=== PATIENT | male | born 1940 | race Caucasian/White ===

== ENCOUNTER → 2018-02-23 11:06 | Outpatient (CLI) | payer MEDICARE, OTHER, SELFPAY ==
[2018-02-23 11:29] LABS: INR 2.33 (0.9-1.1); Prothrombin Time 23.4 seconds (9.4-11.8)
[2018-02-23 12:31] LABS: Anion Gap 18.6 mEq/L (5-15); Blood Urea Nitrogen 12 mg/dL (7-18); Calcium 8.7 mg/dL (8.5-10.1); Carbon Dioxide 23 mmol/L (21.0-32.0); Chloride 105 mmol/L (98-107); Creatinine,Serum 1.05 mg/dL (0.70-1.30); Digoxin 0.56 ng/mL (1.15-2.56); Estimated Glomerular Filt Rate 69 ml/min (>60); GFR (African American) 83 ML/MIN (>60); Glucose 124 mg/dL (74-106); Sodium 142 mmol/L (136-145)
[2018-02-23 12:38] LABS: Potassium 4.6 mmoL/L (3.5-5.1)
== END ==
PROVIDERS: Visit Provider Internal Medicine Cardiovascular Disease
DX: E78.5 Hyperlipidemia, unspecified (principal); I25.810 Atherosclerosis of coronary artery bypass graft(s) without angina pectoris; I48.2 Chronic atrial fibrillation; R06.09 Other forms of dyspnea; Z87.891 Personal history of nicotine dependence; Z95.1 Presence of aortocoronary bypass graft
CPT/HCPCS: 36415; 80048; 80162; 85610

== ENCOUNTER → 2018-03-01 10:13 | Outpatient (CLI) | payer MEDICARE, OTHER, SELFPAY ==
--- NOTE | 2018-03-01 10:14 | NM_ITS ---
History and Indications: Coronary artery disease, previous bypass surgery, hypertension, hyperlipidemia. Procedure: Patient received a 0.4 mg of intravenous Lexiscan, resting heart rate was 70 bpm, resting blood pressure 163/82, with Lexiscan maximum heart rate achieved was 83 bpm which is less than 85% of the maximum predicted heart rate and a blood pressure was 140/84. With Lexiscan patient complained of shortness of breath. Electrocardiogram: Resting electrocardiogram show underlying rhythm is probably atrial fibrillation, frequent premature ventricular complexes versus aberrantly conducted beats. With Lexiscan there is less than 1.[address] segment depression noted from the baseline EKG. The EKG portion of the Lexiscan Myoview is nondiagnostic. Cardiac stress and resting SPECT images: Cardiac stress and resting SPECT images were obtained using technetium 99 Myoview 30.1 mCi at stress and 10.5 mCi at rest. Gated SPECT further analysis of segmental wall motion and calculation of the ejection fraction also done. Cardiac stress and rest images show decreased tracer activity in the posterolateral wall which improves on the resting images suggestive of reversible ischemia, computer derived Left ventricular ejection fraction is 49% with no regional wall motion abnormality, right ventricle is normal size and contractility. Conclusion: 1. The EKG portion of the Lexiscan Myoview is nondiagnostic. 2. Scintigraphic evidence of mild reversible ischemia involving the posterolateral wall, computer derived ejection fraction is 49% with no segmental wall motion abnormality, right ventricle is normal size and contractility. 3. Abnormal Lexiscan Myoview study.
--- NOTE | 2018-03-01 13:27 | CA_ITS ---
PROCEDURE: 2-D M-mode and color Doppler study INDICATIONS FOR THE TEST: Chest pain COPD Heart Murmur Tobacco SmokingEX Palpitations Fatigue Syncope Edema Hypertension+Diabetes Mellitus Rheumatic Fever SOB GONZALEZ+Obesity Hyperlipidemia+ Family History HD Additional History AFIB, CABG 2008 PATIENT INFORMATION HEIGHT: 74 WEIGHT: 273 GENDER: Male B/P: 164/86 2-D/M-MODE INTERPRETATION: 2-D MEASUREMENTS OBSERVED VALUES IN CMS Right Ventricular Dimension (RVDd) 2.2 Interventricular Septum (Thickness)(IVsd) 1.2 Left Ventricular Internal Dimensions(LVIDd) 2.9 Left Ventricular Posterior Wall (Thickness)(LVPWd) 1.2 Aortic Root 3.5 Aortic Cusp Separation 2.1 Left Atrial Dimensions (LAD) 6.7 2D 1. Left atrium is moderately enlarged, left ventricle is normal size, mild concentric left ventricular hypertrophy, visually estimated ejection fraction 55% with no regional wall motion abnormality. 2. The right atrium is moderately enlarged, right ventricle is normal size and contractility. 3. The aortic valve is minimally thickened and fibrosed. 4. Mitral valve has mitral calcification, there is no mitral stenosis 5. The pulmonic valve is poorly visualized. 6. The tricuspid valve is grossly normal. 7. No significant pericardial effusion noted. DOPPLER INTERROGATION: Doppler interrogation of the aortic, mitral and tricuspid valvular presence of mild mitral and tricuspid regurgitation, tricuspid regurgitation jet velocity is inadequate for calculation of the right ventricular systolic pressure, diastolic parameters are inconclusive. CONCLUSION: 1. Biatrial enlargement, normal left ventricular size, mild concentric left ventricular hypertrophy, visually estimated ejection fraction 55% with no regional wall motion abnormality. Diastolic parameters are inconclusive. 2. Mild mitral and tricuspid regurgitation 3. No significant pericardial effusion noted.
--- NOTE | 2018-03-01 13:27 | CI_ITS ---
Cerebrovascular Exam Indications: 785.9 Bruit. IMPRESSIONS 1. The bilateral vertebral arteries are patent with normal antegrade flow. 2. Study suggests 20-49% stenosis involving the right internal carotid artery and the left internal carotid artery. Carotid duplex study. Complete study and Doppler flow study including spectral analysis, color and rowley scale imaging. Height: Height: 193cm. Height: 76in. Weight: Weight: 123.8kg. Weight: 272.4lb. Body mass index: BMI: 33.2kg/m^2. Body surface area: BSA: 2.61m^2. Location: Vascular laboratory. Patient status: Outpatient. Tables: Arterial flow: + +--------+--------+ Location V sys V ed + +--------+--------+ Right CCA - proximal 98.2cm/s 22cm/s + +--------+--------+ Right CCA - distal 102cm/s 18.2cm/s + +--------+--------+ Right ECA 302cm/s -------- + +--------+--------+ Right ICA - proximal 79.4cm/s 18.5cm/s + +--------+--------+ Right ICA - mid 94.3cm/s 20.5cm/s + +--------+--------+ Right ICA - distal 104cm/s 40.3cm/s + +--------+--------+ Right vertebral 51.5cm/s -------- + +--------+--------+ Left CCA - proximal 95.3cm/s 18.2cm/s + +--------+--------+ Left CCA - distal 83cm/s 19.2cm/s + +--------+--------+ Left ECA 155cm/s -------- + +--------+--------+ Left ICA - proximal 112cm/s 28.3cm/s + +--------+--------+ Left ICA - mid 97.4cm/s 24.5cm/s + +--------+--------+ Left ICA - distal 132cm/s 35.8cm/s + +--------+--------+ Left vertebral 43.2cm/s -------- + +--------+--------+ Velocity ratios: + + + + + + Right, V sys Right, V ed Left, V sys Left, V ed + + + + + + Max ICA/dist CCA 1.02 2.21 1.59 1.86 + + + + + + (Report amended ) Electronically signed by: Vitor Barbosa [id number]
--- NOTE | 2018-03-01 13:32 | HMH.ITSHM ---
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 []fluticosone asa warfarin simvastatin carvedilol lisinopril digoxin spironolactone
== END ==
PROVIDERS: PCP Internal Medicine; Visit Provider Internal Medicine Cardiovascular Disease
DX: E78.5 Hyperlipidemia, unspecified (principal); I10 Essential (primary) hypertension; I25.810 Atherosclerosis of coronary artery bypass graft(s) without angina pectoris; I48.2 Chronic atrial fibrillation; R06.09 Other forms of dyspnea; Z87.891 Personal history of nicotine dependence; Z95.1 Presence of aortocoronary bypass graft; R09.89 Other specified symptoms and signs involving the circulatory and respiratory systems
CPT/HCPCS: 78452; 93017; 93306; 93880; A9502; J2785

== ENCOUNTER 2018-04-13 09:23 | Outpatient (CLI) | payer MEDICARE, OTHER, SELFPAY ==
[2018-04-13 11:57] LABS: PHA INR Fingerstick 2.5 (0.9-1.1)
== END 2018-04-13 11:58 | disposition home or self-care (01) ==
LOC: ACC 09:26
PROVIDERS: PCP Internal Medicine; Visit Provider Internal Medicine Cardiovascular Disease
DX: Z51.81 Encounter for therapeutic drug level monitoring (principal); Z79.01 Long term (current) use of anticoagulants; I25.118 Atherosclerotic heart disease of native coronary artery with other forms of angina pectoris
CPT/HCPCS: 85610; 99211; G0463

== ENCOUNTER 2018-05-25 09:53 | Outpatient (CLI) | payer MEDICARE, OTHER, SELFPAY ==
[2018-05-25 14:55] LABS: PHA INR Fingerstick 2.4 (0.9-1.1)
== END 2018-05-25 14:56 | disposition home or self-care (01) ==
PROVIDERS: PCP Internal Medicine; Visit Provider Internal Medicine Cardiovascular Disease
DX: Z51.81 Encounter for therapeutic drug level monitoring (principal); Z79.01 Long term (current) use of anticoagulants
CPT/HCPCS: 85610; 99211; G0463

== ENCOUNTER 2018-06-12 08:41 | Outpatient (CLI) | payer MEDICARE, OTHER, SELFPAY ==
[2018-06-12 10:26] LABS: PHA INR Fingerstick 2.3 (0.9-1.1)
== END 2018-06-12 10:30 | disposition home or self-care (01) ==
PROVIDERS: PCP Internal Medicine Adolescent Medicine; Visit Provider Internal Medicine Cardiovascular Disease
DX: Z51.81 Encounter for therapeutic drug level monitoring (principal); Z79.01 Long term (current) use of anticoagulants; I48.91 Unspecified atrial fibrillation
CPT/HCPCS: 85610; 99211; G0463

== ENCOUNTER → 2018-07-18 08:42 | Outpatient (CLI) | payer MEDICARE, OTHER, SELFPAY ==
--- NOTE | 2018-07-18 08:45 | US_ITS ---
US abd. aorta screening HISTORY: ITS.REASON: hx of aaa repair ORDERING PHYSICIAN: Barbara Gonzalez APRN PATIENT AGE: 77 years Comparison: None FINDINGS: No evidence of aortic aneurysm. Proximal common iliacs are unremarkable. IMPRESSION: Negative for abdominal aortic aneurysm
== END ==
PROVIDERS: PCP Internal Medicine; Visit Provider Nurse Practitioner Family
DX: I71.4 Abdominal aortic aneurysm, without rupture (principal)
CPT/HCPCS: 76705

== ENCOUNTER 2018-07-24 08:39 | Outpatient (CLI) | payer MEDICARE, OTHER, SELFPAY ==
[2018-07-24 15:28] LABS: PHA INR Fingerstick 2.7 (0.9-1.1)
== END 2018-07-24 15:30 | disposition home or self-care (01) ==
LOC: ACC 08:41
PROVIDERS: PCP Internal Medicine; Visit Provider Internal Medicine Cardiovascular Disease
DX: Z51.81 Encounter for therapeutic drug level monitoring (principal); Z79.01 Long term (current) use of anticoagulants; I48.91 Unspecified atrial fibrillation
CPT/HCPCS: 85610; 99211; G0463

== ENCOUNTER 2018-08-21 08:30 | Outpatient (CLI) | payer MEDICARE, OTHER, SELFPAY ==
[2018-08-21 11:50] LABS: PHA INR Fingerstick 2.9 (0.9-1.1)
== END 2018-08-21 15:54 | disposition home or self-care (01) ==
LOC: ACC 08:32
PROVIDERS: Internal Medicine Cardiovascular Disease; PCP Internal Medicine Adolescent Medicine; Visit Provider Internal Medicine Adolescent Medicine
DX: Z51.81 Encounter for therapeutic drug level monitoring (principal); Z79.01 Long term (current) use of anticoagulants; I48.91 Unspecified atrial fibrillation
CPT/HCPCS: 85610; 99211; G0463

== ENCOUNTER 2018-09-18 08:48 | Outpatient (CLI) | payer MEDICARE, OTHER, SELFPAY ==
[2018-09-18 11:53] LABS: PHA INR Fingerstick 2.6 (0.9-1.1)
== END 2018-09-18 13:26 | disposition home or self-care (01) ==
LOC: ACC 08:50
PROVIDERS: Internal Medicine Cardiovascular Disease; PCP Internal Medicine Adolescent Medicine; Visit Provider Internal Medicine Adolescent Medicine
DX: Z51.81 Encounter for therapeutic drug level monitoring (principal); Z79.01 Long term (current) use of anticoagulants; I48.91 Unspecified atrial fibrillation
CPT/HCPCS: 85610; 99211; G0463

== ENCOUNTER 2018-10-30 08:39 | Outpatient (CLI) | payer MEDICARE, OTHER, SELFPAY ==
[2018-10-30 10:46] LABS: PHA INR Fingerstick 2.8 (0.9-1.1)
== END 2018-10-30 10:48 | disposition home or self-care (01) ==
LOC: ACC 08:41
PROVIDERS: PCP Internal Medicine Adolescent Medicine; Visit Provider Internal Medicine Adolescent Medicine
DX: Z51.81 Encounter for therapeutic drug level monitoring (principal); Z79.01 Long term (current) use of anticoagulants; I48.91 Unspecified atrial fibrillation
CPT/HCPCS: 85610; 99211; G0463

== ENCOUNTER 2018-12-11 08:40 | Outpatient (CLI) | payer MEDICARE, OTHER, SELFPAY ==
[2018-12-11 09:55] LABS: PHA INR Fingerstick 2.7 (0.9-1.1)
== END 2018-12-11 10:18 | disposition home or self-care (01) ==
PROVIDERS: PCP Internal Medicine Adolescent Medicine; Visit Provider Internal Medicine Cardiovascular Disease
DX: Z79.01 Long term (current) use of anticoagulants; I48.91 Unspecified atrial fibrillation; Z51.81 Encounter for therapeutic drug level monitoring
CPT/HCPCS: 85610; 99211; G0463

== ENCOUNTER 2019-01-22 08:33 | Outpatient (CLI) | payer MEDICARE, OTHER, SELFPAY ==
[2019-01-22 14:31] LABS: PHA INR Fingerstick 3.2 (0.9-1.1)
== END 2019-01-22 14:34 | disposition home or self-care (01) ==
LOC: ACC 08:34
PROVIDERS: PCP Internal Medicine Adolescent Medicine; Visit Provider Internal Medicine Cardiovascular Disease
DX: Z51.81 Encounter for therapeutic drug level monitoring (principal); Z79.01 Long term (current) use of anticoagulants; I48.91 Unspecified atrial fibrillation
CPT/HCPCS: 85610; 99211; G0463

== ENCOUNTER 2019-02-12 08:21 | Outpatient (CLI) | payer MEDICARE, OTHER, SELFPAY ==
[2019-02-12 14:49] LABS: PHA INR Fingerstick 3.5 (0.9-1.1)
== END 2019-02-12 15:02 | disposition home or self-care (01) ==
LOC: ACC 08:22
PROVIDERS: PCP Internal Medicine Adolescent Medicine; Visit Provider Internal Medicine Cardiovascular Disease
DX: Z79.01 Long term (current) use of anticoagulants (principal)
CPT/HCPCS: 85610; 99211; G0463

== ENCOUNTER → 2019-02-22 17:35 | Outpatient (CLI) | payer MEDICARE, OTHER, SELFPAY ==
--- NOTE | 2019-02-22 17:45 | XR_ITS ---
PROCEDURE: XR ANKLE LT MIN 3V CLINICAL INDICATION: ACUTE PAIN OF LEFT ANKLE COMPARISON: No exams were available for comparison FINDINGS: There is mild soft tissue swelling at the lateral malleolar region with an accessory center of ossification versus old avulsion fracture at the tip of the lateral malleolus. No acute fracture or dislocation. There is some mild vascular calcification noted. IMPRESSION: Soft tissue swelling, no acute fracture Dictated by: Vitor Barbosa MD 02/22/2019 18:52 Electronically signed by Vitor Barbosa MD in [place] 02/22/2019 18:52
--- NOTE | 2019-02-22 17:45 | XR_ITS ---
PROCEDURE: XR FOOT LT MIN 3V CLINICAL INDICATION: ACUTE PAIN OF LEFT FOOT Posttraumatic pain COMPARISON: No exams were available for comparison FINDINGS: No fracture or dislocation. No lytic or blastic change. There is normal mineralization. Mild osteoarthritic changes are present at the 1st metatarsophalangeal joint. There is a small calcaneal spur Other findings:None. IMPRESSION: No acute findings. Dictated by: Vitor Barbosa MD 02/22/2019 18:54 Electronically signed by Vitor Barbosa MD in [place] 02/22/2019 18:54
== END ==
PROVIDERS: PCP Internal Medicine Adolescent Medicine; Visit Provider Internal Medicine Adolescent Medicine
DX: M79.672 Pain in left foot (principal); M25.572 Pain in left ankle and joints of left foot
CPT/HCPCS: 73610; 73630

== ENCOUNTER 2019-03-02 07:36 | Outpatient (CLI) | payer MEDICARE, OTHER, SELFPAY ==
--- NOTE | 2019-03-02 07:38 | CA_ITS ---
APPROVED REPORT Information Systems Security Analyst: Pennie Dwyer RVT Laterality: Bilateral Study Quality: Good Indications: DEBORAH Risk Factors Hypertension: Hyperlipidemia Medications Coumadin Doppler Spectral Velocity Analysis ECA (R) 161.30/6.70 cm/s ECA (L) 154.20/14.60 cm/s dICA (R) 93.10/36.50 cm/s dICA (L) 83.90/32.10 cm/s Mindy (R) 73.60/29.30 cm/s Mindy (L) 78.30/24.10 cm/s pICA (R) 73.80/22.50 cm/s pICA (L) 69.70/16.00 cm/s dCCA (R) 84.10/19.30 cm/s dCCA (L) 65.60/16.80 cm/s pCCA (R) 107.90/22.50 cm/s pCCA (L) 89.60/21.10 cm/s Vert (R) 75.80/21.10 cm/s Vert (L) 95.10/28.30 cm/s ICA/CCA 1.11 ICA/CCA 1.28 Conclusion Study suggests 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 Study suggests 20-49% stenosis of the left internal cartoid artery, unchanged from the 03/01/18 study. Antegrade flow seen bilateral vertebral arteries. Electronically signed by : Vitor Barbosa MD 03/02/2019 16:58:39
--- NOTE | 2019-03-02 08:52 | US_ITS ---
PROCEDURE: US THYROID CLINICAL INDICATION: THYROID NODULE COMPARISON: CT CERVICAL SPINE WO CON from 02/12/2019 FINDINGS: Right lobe: Right lobe is 4.8 x 2.4 x 2.7 cm. There an 2 x 1.3 cm isodense slightly hyperechoic nodule in the lower pole. This does have some decreased echogenicity centrally.. This is well-circumscribed. No calcifications apparent. Left lobe: 2 x 1 x 1.3 cm. 6 mm hypoechoic nodule lower pole. Isthmus: Unremarkable Additional findings: IMPRESSION: 2 cm right thyroid nodule. This is a T rads level 3 mildly suspicious. Suggest 6 month follow-up. Dictated by: Vitor Barbosa MD 03/02/2019 09:52 Electronically signed by Vitor Barbosa MD in [place] 03/02/2019 09:52
[2019-03-02 11:33] LABS: PHA INR Fingerstick 3.1 (0.9-1.1)
== END 2019-03-02 11:35 | disposition home or self-care (01) ==
LOC: ACC 07:38
PROVIDERS: Physician Assistant; PCP Internal Medicine Adolescent Medicine; Visit Provider Internal Medicine Cardiovascular Disease
DX: I65.23 Occlusion and stenosis of bilateral carotid arteries (principal); Z79.01 Long term (current) use of anticoagulants; E04.1 Nontoxic single thyroid nodule
CPT/HCPCS: 76536; 85610; 93880; 99211; G0463

== ENCOUNTER → 2019-03-12 14:29 | Outpatient (CLI) | payer MEDICARE, OTHER, SELFPAY ==
--- NOTE | 2019-03-12 14:34 | XR_ITS ---
PROCEDURE: XR FOOT WT BEARING LT 3V CLINICAL INDICATION: Foot pain COMPARISON: XR FOOT LT MIN 3V from 02/22/2019 FINDINGS: No fracture or dislocation. No lytic or blastic change. There is normal mineralization. Minimal osteoarthritic change 1st MTP joint. Artifact is present from overlying bandage/wrap Other findings:None. IMPRESSION: No acute findings. Dictated by: Vitor Barbosa MD 03/12/2019 16:20 Electronically signed by Vitor Barbosa MD in [place] 03/12/2019 16:20
--- NOTE | 2019-03-12 14:34 | XR_ITS ---
PROCEDURE: XR ANKLE WT BEARING LT MIN 3V CLINICAL INDICATION: ankle pain Posttraumatic pain COMPARISON: XR ANKLE LT MIN 3V from 02/22/2019 FINDINGS: No acute fracture or dislocation is evident. Previously noted soft tissue swelling laterally has shown some improvement. There is an accessory center of ossification at the tip the lateral malleolus. There is an overlying wrap present with artifact IMPRESSION: Decreased soft tissue swelling. No acute fracture Dictated by: Vitor Barbosa MD 03/12/2019 16:19 Electronically signed by Vitor Barbosa MD in [place] 03/12/2019 16:19
== END ==
PROVIDERS: PCP Internal Medicine Adolescent Medicine; Visit Provider Podiatrist
DX: M25.572 Pain in left ankle and joints of left foot; M79.672 Pain in left foot
CPT/HCPCS: 73610; 73630

== ENCOUNTER → 2019-03-19 08:33 | Outpatient (CLI) | payer MEDICARE, OTHER, SELFPAY ==
--- NOTE | 2019-03-19 08:34 | US_ITS ---
APPROVED REPORT Pressures/Indices Right Indices Left Indices Brachial 135.00 mmHg Brachial 143.00 mmHg Low Thigh 105.00 mmHg 0.73 Low Thigh 81.00 mmHg 0.57 Calf 165.00 mmHg 1.15 Calf 136.00 mmHg 0.95 Ankle(PT) 0.00 mmHg 0.00 Ankle(PT) 155.00 mmHg 1.08 Ankle(DP) 0.00 mmHg 0.00 Ankle(DP) 0.00 mmHg 0.00 Digit 47.00 mmHg 0.33 Digit 56.00 mmHg 0.39 Findings R ALEJANDRO NON COMPRESSIBLE L ALEJANDRO 1.1 R TBI 0.3 L TBI 0.4 DIMINISHED WAVEFORMS NORMAL PULSES Conclusion R ALEJANDRO NON COMPRESSIBLE L ALEJANDRO 1.1 R TBI 0.3 L TBI 0.4 DIMINISHED WAVEFORMS NORMAL PULSES Medial calcinosis (rigid vessels) is suggested due to noncompressible right calf vessels. Normal Left ALEJANDRO with low left TBI suggesting small vessel disease Electronically signed by : Vitor Barbosa MD 03/19/2019 19:06:57
== END ==
PROVIDERS: PCP Internal Medicine Adolescent Medicine; Visit Provider Podiatrist
DX: I73.9 Peripheral vascular disease, unspecified (principal); R09.89 Other specified symptoms and signs involving the circulatory and respiratory systems
CPT/HCPCS: 93923

== ENCOUNTER 2019-03-26 09:05 | Outpatient (CLI) | payer MEDICARE, OTHER, SELFPAY ==
[2019-03-26 13:27] LABS: PHA INR Fingerstick 2.7 (0.9-1.1)
== END 2019-03-26 13:32 | disposition home or self-care (01) ==
LOC: ACC 09:06
PROVIDERS: PCP Internal Medicine Adolescent Medicine; Visit Provider Physician Assistant
DX: Z51.81 Encounter for therapeutic drug level monitoring (principal); Z79.01 Long term (current) use of anticoagulants; I48.91 Unspecified atrial fibrillation
CPT/HCPCS: 85610; 99211; G0463

== ENCOUNTER 2019-04-12 09:59 | Outpatient (CLI) | payer MEDICARE, OTHER, SELFPAY ==
[2019-04-12 10:54] LABS: PHA INR Fingerstick 2.4 (0.9-1.1)
== END 2019-04-12 10:55 | disposition home or self-care (01) ==
LOC: ACC 10:01
PROVIDERS: Physician Assistant; PCP Internal Medicine Adolescent Medicine; Visit Provider Internal Medicine
DX: Z51.81 Encounter for therapeutic drug level monitoring (principal); Z79.01 Long term (current) use of anticoagulants; I48.91 Unspecified atrial fibrillation
CPT/HCPCS: 85610; 99211; G0463

== ENCOUNTER 2019-04-26 08:39 | Outpatient (CLI) | payer MEDICARE, OTHER, SELFPAY ==
--- NOTE | 2019-04-26 08:42 | XR_ITS ---
PROCEDURE: XR KUB CLINICAL INDICATION: hematuria COMPARISON: CT ABDOMEN PELVIS WO CON from 04/09/2019 FINDINGS: There are multiple surgical clips in the epigastric region. There is a small calcific density in the left upper quadrant. This could be related to renal vascular calcification or small renal stone. This measures 3 mm. There has been prior left hip hemiarthroplasty placement. Mild degenerative changes are present in the lumbar spine. Vascular calcifications are also noted. No obvious ureteral calculus. IMPRESSION: Possible left nephrolithiasis versus renal artery calcification Dictated by: Vitor Barbosa MD 04/26/2019 10:41 Electronically signed by Vitor Barbosa MD in [place] 04/26/2019 10:41
[2019-04-26 10:18] LABS: PHA INR Fingerstick 3.9 (0.9-1.1)
== END 2019-04-26 10:21 | disposition home or self-care (01) ==
LOC: RAD 08:40
PROVIDERS: Physician Assistant; PCP Internal Medicine Adolescent Medicine; Visit Provider Urology
DX: R31.9 Hematuria, unspecified (principal); Z51.81 Encounter for therapeutic drug level monitoring; Z79.01 Long term (current) use of anticoagulants
CPT/HCPCS: 74018; 85610; 99211; G0463

== ENCOUNTER 2019-05-08 09:36 | Outpatient (CLI) | payer MEDICARE, OTHER, SELFPAY | END 2019-05-08 15:41 | disposition home or self-care (01) | LOC: ACC 09:37 | PROVIDERS: PCP Internal Medicine Adolescent Medicine; Visit Provider Physician Assistant | DX: Z51.81 Encounter for therapeutic drug level monitoring (principal); Z79.01 Long term (current) use of anticoagulants; I48.91 Unspecified atrial fibrillation | CPT/HCPCS: 85610; 99211; G0463 ==

== ENCOUNTER 2019-05-21 09:10 | Outpatient (CLI) | payer MEDICARE, OTHER, SELFPAY | END 2019-05-21 13:12 | disposition home or self-care (01) | LOC: ACC 09:11 | PROVIDERS: PCP Internal Medicine Adolescent Medicine; Visit Provider Physician Assistant | DX: Z51.81 Encounter for therapeutic drug level monitoring (principal); Z79.01 Long term (current) use of anticoagulants; I48.91 Unspecified atrial fibrillation | CPT/HCPCS: 85610; 99211; G0463 ==

== ENCOUNTER 2019-07-02 09:25 | Outpatient (CLI) | payer MEDICARE, OTHER, SELFPAY ==
[2019-07-03 10:46] LABS: PHA INR Fingerstick 1.9 (0.9-1.1)
== END 2019-07-02 10:17 | disposition home or self-care (01) ==
LOC: ACC 09:26
PROVIDERS: PCP Internal Medicine Adolescent Medicine; Visit Provider Physician Assistant
DX: Z51.81 Encounter for therapeutic drug level monitoring (principal); Z79.01 Long term (current) use of anticoagulants; I48.91 Unspecified atrial fibrillation
CPT/HCPCS: 85610; 99211; G0463

== ENCOUNTER → 2019-08-01 11:12 | Outpatient (CLI) | payer MEDICARE, OTHER, SELFPAY ==
[2019-08-01 11:43] LABS: Basophils # 0.1 K/mm3 (0-0.2); Basophils % 1.1 % (0.1-2.0); Eosinophils # 0.2 K/mm3 (0.0-0.4); Eosinophils % 2.1 % (0.1-12.0); Hematocrit 48.6 % (42.0-52.0); Hemoglobin 16.7 g/dL (14.1-18.0); Lymphocytes # 2.8 K/mm3 (0.7-4.5); Lymphocytes % 28.9 % (10-50); Mean Corpuscular HGB Conc 34.3 g/dL (31.8-35.4); Mean Corpuscular Hemoglobin 30.9 pg (27.0-31.2); Mean Corpuscular Volume 90.2 fl (80-94); Mean Platelet Volume 8.2 fl (7.4-10.4); Monocytes # 0.5 K/mm3 (0.1-1.0); Monocytes % 5.5 % (1.7-9.3); Neutrophils # 6.1 K/mm3 (1.8-7.8); Neutrophils % 62.4 % (37.0-80.0); Platelet Count 260 K/mm3 (142-424); Red Blood Count 5.39 M/mm3 (4.60-6.20); Red Cell Distribution Width 13.6 % (11.5-17.5); White Blood Count 9.8 K/mm3 (4.8-10.8)
[2019-08-01 12:29] LABS: Bilirubin,Direct 0.4 mg/dl (0.0-0.4); Chol/HDL Ratio 4.3 (1-3.5); Cholesterol 153 mg/dl (140-200); HDL Cholesterol 36 mg/dl (40-60)
[2019-08-01 12:31] LABS: Triglycerides 405 mg/dl (30-150)
[2019-08-01 12:32] LABS: Alanine Aminotransferase 19 U/L (12-78); Albumin Level 4.5 g/dl (3.5-5.0); Albumin/Globulin Ratio 1.8 (1.1-1.8); Alkaline Phosphatase 72 U/L (38-126); Anion Gap 17.5 mEq/L (5-15); Aspartate Amino Transferase 28 U/L (17-59); Bilirubin,Total 1.5 mg/dl (0.2-1.3); Blood Urea Nitrogen 14 mg/dl (9-20); Calcium 9.5 mg/dl (8.4-10.2); Carbon Dioxide 26 mmol/L (22.0-30.0); Chloride 97 mmol/L (98-107); Estimated Glomerular Filt Rate 73 ml/min (>60); GFR (African American) 88 ML/MIN (>60); Globulin 2.5 g/dL (1.3-3.2); Potassium 4.5 mmoL/L (3.5-5.1); Sodium 136 mmol/L (136-145)
[2019-08-01 12:40] LABS: Direct LDL Cholesterol 70.57 mg/dL (100-129)
[2019-08-01 12:55] LABS: Glucose 447 mg/dl (74-100)
[2019-08-01 13:00] LABS: Thyroid Stimulating Hormone 2.27 uIU/mL (0.465-4.68)
== END ==
PROVIDERS: Internal Medicine Cardiovascular Disease; Visit Provider Internal Medicine Adolescent Medicine
DX: E78.5 Hyperlipidemia, unspecified (principal); I10 Essential (primary) hypertension; I25.10 Atherosclerotic heart disease of native coronary artery without angina pectoris; I48.91 Unspecified atrial fibrillation; I65.29 Occlusion and stenosis of unspecified carotid artery; I73.9 Peripheral vascular disease, unspecified; R06.00 Dyspnea, unspecified; Z95.1 Presence of aortocoronary bypass graft; Z98.890 Other specified postprocedural states
CPT/HCPCS: 36415; 80053; 80061; 82248; 84443; 85025

== ENCOUNTER 2019-08-13 14:18 | Outpatient (CLI) | payer MEDICARE, OTHER, SELFPAY ==
[2019-08-13 16:21] VITALS: BMI 34.3
--- NOTE | 2019-08-15 10:22 | HMH.PHAINT ---
ACC-CALLED PATIENT IN REGARDS TO HOLDING WARFARIN DUE TO COLONOSCOPY. PATIENT IS SCHEDULED FOR COLONOSCOPY ON August WITH DR. ZABALA. SPOKE WITH DR. LEIJA ABOUT HOLDING WARFARIN. PATIENT TAKING WARFARIN FOR AFIB. HOLDING WARFARIN ON 08/20, 08/21, 08/22, AND 08/23. HAVING PATIENT TAKE 7.5 MG ON 08/24, 08/25, AND 08/26. ALSO HAVING PATIENT TAKE WARFARIN 5 MG ON 08/27 AND FOLLOW UP ON 08/28.
== END 2019-08-13 16:15 | disposition home or self-care (01) ==
LOC: ACC 14:19
PROVIDERS: PCP Internal Medicine Adolescent Medicine; Visit Provider Physician Assistant
DX: Z51.81 Encounter for therapeutic drug level monitoring (principal); Z79.01 Long term (current) use of anticoagulants; I48.91 Unspecified atrial fibrillation; Z71.3 Dietary counseling and surveillance; E11.9 Type 2 diabetes mellitus without complications
CPT/HCPCS: 85610; 97802; 99211; G0463

== ENCOUNTER → 2019-08-23 10:23 | Outpatient (CLI) | payer MEDICARE, OTHER, SELFPAY ==
[2019-08-23 13:24] LABS: Coronavirus 19 IgG Antibody Positive (Negative); Coronavirus 19 IgM Antibody Negative (Negative)
== END ==
PROVIDERS: Visit Provider Internal Medicine Gastroenterology
DX: Z01.818 Encounter for other preprocedural examination (principal)
CPT/HCPCS: 36415; 86328

== ENCOUNTER 2019-08-24 08:43 | Day surgery (SDC) | payer MEDICARE, OTHER, SELFPAY ==
[2019-08-20 16:13] VITALS: BMI 32.2
[2019-08-24] VITALS (8 sets, daily range): BP systolic 99–142; BP diastolic 54–71; PULSE 49–90; RESP 16–18; TEMP 36.2–36.3; O2SAT 92–97
--- NOTE | 2019-08-24 11:05 | P.PCN_ITS ---
[facility] Procedure Note Procedure Note:: Colonoscopy Procedure Report: Colonoscopy with cold snare polypectomy Endoscopist: Brandon Castillo II, MD Referring physician: Misha Plaza M.D./Chiki Perea MD Date of Procedure: August 24, 2019 Equipment: Olympus 180 variable stiffness pediatric colonoscope Sedation: MAC sedation Indication: Mr. Bledsoe is a 78-year-old gentleman with a history of multiple adenomatous colon polyps previously. He had been followed by Dr. Anton Verdugo ([facility]). The patient has had up to 8 colon polyps removed previously. He did have a larger and more advanced polyp 2 years ago that was sent to Dr. Crawley at the [facility] and this was removed via endoscopic mucosal resection. The patient was having colonoscopy every 6 months and now is on an annual colonoscopy interval. His last colonoscopy was May 2018 and he had 4 colon polyps removed. The patient reports no abdominal pain, weight loss, change in his bowel habits or rectal bleeding. He reports no family history of colon cancer. The patient did have a colonoscopy in March 2019 that did show evidence of colonic diverticulosis and epiploic appendagitis. Procedure: Prior to the procedure, a history and physical exam was performed, and patient's medications and allergies were reviewed. The risks, benefits and alternatives of the sedation and procedure were discussed with the patient. All questions were answered and informed consent was obtained. The patient was brought to the procedure room. Patient identification and proposed procedure were verified by the physician and the nurse. The patient was placed in a left lateral decubitus position and the scope was passed under direct vision. Throughout the procedure, the patient's blood pressure, pulse, and oxygen saturations were monitored continuously. The colonoscopy was accomplished without difficulty. The patient tolerated the procedure well. Findings: On digital rectal examination there was normal rectal tone. There were no external hemorrhoids. The colonoscope was introduced through the anal canal to the rectum and advanced to the cecum. The ileocecal valve and appendiceal orifice were identified. The scope was advanced a short distance into the ileum which appeared grossly normal. The scope was then withdrawn into the colon. There were a total of 10 colon polyps (ascending x3 (4, 6 and 6 mm), transverse x4 (3, 4, 7 and 8 mm), descending x2 (4 and 6 mm) and rectum x1 (3 mm)). All 10 of these polyps were removed via cold snare polypectomy. There was Denise ink identified in the transverse and descending colon. There were extensively scattered diverticuli throughout the colon but more predominantly in the descending and sigmoid colon (LEFT colon). The rectum itself was normal. Upon retroflexion within the rectum there were grade 2 internal hemorrhoids. The preparation was good throughout with [place] Preparation Score of 8 out of 9. The cecal time was 17 minutes. Impression: 1. Colonic polyps x10 2. Extensive pandiverticulosis 3. Grade 2 internal hemorrhoids Plan: I would recommend annual surveillance colonoscopy. I will discuss the findings with patient and family. We will follow-up polyp histology. I would encourage bulk fiber supplementation on a long-term daily maintenance basis.
--- NOTE | 2019-08-24 11:16 | HMH.ANESCL ---
[facility] Anesthesia Checklist - Patient Identification Patient Identification: Arm Band - Structural Data Admitted From: Home Planned Operative Procedure/s: colonoscopy Consent for Planned Operative Procedure(s) Verified: Yes Verified Documents: Surgical Consent, History and Physical - NPO Status Verified Time NPO: 00:00 - Additional verifications Anesthesia Reactions: No - Airway Assessment C-Spine Mobility Assessed: Yes (mp3) TMJ Mobility Assessed: Yes Dentition: Dentures-good fit - Neurological Assessment Level of Consciousness: Awake, Alert - Anesthesia Plan Anesthesia Risk discussed: Yes Anesthesia Plan: Verified ASA Class: III Anesthesia Type: MAC [facility] History I have reviewed the patient's past medical history: Yes Medical History: Reports:: Atrial Fibrillation, Cancer (skin), Coronary Artery Disease, Diabetes Mellitus Type 2, Hyperlipidemia, Hypertension, Peripheral Artery Disease Denies:: Diabetes Mellitus Type 1, Internal Pacemaker, MRSA, Seizures *Have you ever received a pneumonia vaccine?: Yes *Have you received a flu vaccine this season?: Yes Other Medical History: Reports: Arthritis, Cataracts Anesthesia experience/problems:: nac Laterality Cases: Left: Total Hip Replacement, Bilateral: Tonsillectomy, Total Knee Replacement Other Surgeries: Yes: Appendectomy, CABG, Cancer Surgery, Cardiac Catheterization, Hernia Repair. No: Pacemaker Amputation: No Fractures: No - *Social History Last grade of school completed: Some college Smoking Status: Former smoker Tobacco Type: cigarettes #Yrs smoked (if former smoker): 30 Alcohol Intake: never Substance Use Type: denies use *Occupational Status:: retired Housing: house Household Members: spouse *Travel in the last 8 weeks: None Family Hx:: Cancer, Stroke
[2019-08-24 12:35] LABS: POC Glucose,Bedside 139 (70-110)
== END 2019-08-24 12:28 | disposition home or self-care (01) ==
LOC: OUTP 08:45
PROVIDERS: PCP Internal Medicine Adolescent Medicine; Visit Provider Internal Medicine Gastroenterology
PROC: 0DJD8ZZ Inspection of Lower Intestinal Tract, Via Natural or Artificial Opening Endoscopic (ICD-10-PCS; CPT 45378; principal; 2019-08-24 10:00)
DX: Z12.11 Encounter for screening for malignant neoplasm of colon (principal); Z86.010 Personal history of colon polyps; Z87.19 Personal history of other diseases of the digestive system; K63.5 Polyp of colon; K57.30 Diverticulosis of large intestine without perforation or abscess without bleeding; K64.1 Second degree hemorrhoids; I48.91 Unspecified atrial fibrillation; I25.10 Atherosclerotic heart disease of native coronary artery without angina pectoris; E11.9 Type 2 diabetes mellitus without complications; E78.5 Hyperlipidemia, unspecified; I10 Essential (primary) hypertension; I73.9 Peripheral vascular disease, unspecified
CPT/HCPCS: 45385; 82962; 88305

== ENCOUNTER 2019-09-05 09:05 | Outpatient (CLI) | payer MEDICARE, OTHER, SELFPAY ==
[2019-09-05 15:10] LABS: PHA INR Fingerstick 1.8 (0.9-1.1)
== END 2019-09-05 15:43 | disposition home or self-care (01) ==
LOC: ACC 09:08
PROVIDERS: PCP Internal Medicine Adolescent Medicine; Visit Provider Physician Assistant
DX: Z51.81 Encounter for therapeutic drug level monitoring (principal); Z79.01 Long term (current) use of anticoagulants; I48.91 Unspecified atrial fibrillation
CPT/HCPCS: 85610; 99211; G0463

== ENCOUNTER 2019-10-03 08:59 | Outpatient (CLI) | payer MEDICARE, OTHER, SELFPAY ==
[2019-10-03 10:19] LABS: PHA INR Fingerstick 1.6 (0.9-1.1)
== END 2019-10-03 10:21 | disposition home or self-care (01) ==
LOC: ACC 09:00
PROVIDERS: PCP Internal Medicine Adolescent Medicine; Visit Provider Physician Assistant
DX: Z51.81 Encounter for therapeutic drug level monitoring (principal); Z79.01 Long term (current) use of anticoagulants
CPT/HCPCS: 85610; 99211; G0463

== ENCOUNTER 2019-10-16 07:56 | Outpatient (CLI) | payer MEDICARE, OTHER, SELFPAY ==
[2019-10-16 11:01] LABS: PHA INR Fingerstick 1.7 (0.9-1.1)
== END 2019-10-16 11:12 | disposition home or self-care (01) ==
LOC: ACC 07:57
PROVIDERS: PCP Internal Medicine Adolescent Medicine; Visit Provider Physician Assistant
DX: Z79.01 Long term (current) use of anticoagulants (principal); I48.91 Unspecified atrial fibrillation
CPT/HCPCS: 85610; 99211; G0463

== ENCOUNTER → 2019-11-02 14:16 | Outpatient (CLI) | payer MEDICARE, BC, SELFPAY ==
[2019-11-04 10:49] LABS: Covid-19 Nasal PCR Sendout UK DETECTED
== END ==
PROVIDERS: PCP Internal Medicine Adolescent Medicine; Visit Provider Internal Medicine Adolescent Medicine
DX: Z20.828 Contact with and (suspected) exposure to other viral communicable diseases (principal); U07.1 COVID-19
CPT/HCPCS: U0003

== ENCOUNTER 2019-11-09 12:52 | Inpatient (IN) | payer MEDICARE, BC, SELFPAY ==
[2019-11-09] VITALS (14 sets, daily range): BP systolic 125–150; BP diastolic 68–91; PULSE 45–65; RESP 17–20; TEMP 36.3–37.1; O2SAT 85–95; BMI 31.6; BMI 30.3
--- NOTE | 2019-11-09 12:49 | ECG_ITS ---
APPROVED REPORT Exam: Resting ECG HR:64 bpm ECG Measurements Heart Rate 64 AXES QRSd 90 QRS -29 QT 424 T -12 QTc 437 <Conclusion> Atrial fibrillation Inferior infarct, age undetermined Possible Anterior infarct, age undetermined Abnormal ECG Electronically signed by : Misha Plaza, 11/10/2019 06:24:52
--- NOTE | 2019-11-09 12:55 | HMH.EDGENADL ---
ED Disposition Clinical Impression: Pneumonia due to COVID-19 virus Respiratory failure with hypoxia Qualifiers: Chronicity: acute Qualified Code(s): J96.01 - Acute respiratory failure with hypoxia Disposition: Admitted As Inpatient Condition on Discharge: Serious - Critical Care Critical Care Time: Yes Attestation: On , the high probability of a clinically significant, sudden or life threatening deterioration of the following system(s) required my full and direct attention, intervention and personal management. The time I documented below is in addition to time spent performing reported procedures but includes the following listed in this critical care notation. Total Critical Care Time: 35 Vital system(s) involved:: Respiratory Failure My critical care processes included: Assessment & monitoring of V/S, Initial and Re-exams, Data Review/Interpretation, Coordinating Care, Medication Orders and management, Documentation Medical Decision Making - Medical Records Medical records reviewed: Yes: I reviewed the patient's medical records. - Kai Inquiry Pt receiving controlled substance: No Vital Signs: 11/09/19 12:53 11/09/19 13:12 11/09/19 13:34 Temperature 97.7 F Temperature Source Oral Pulse Rate Pulse Rate [Left Radial] 65 60 58 L Respiratory Rate 19 Blood Pressure Blood Pressure [Right Arm] 132/69 146/80 H 136/68 Blood Pressure Mean [Right Arm] 90 102 90 Blood Pressure Source Blood Pressure Source [Right Arm] Automatic Cuff Automatic Cuff Automatic Cuff Blood Pressure Position Blood Pressure Position [Right Arm] Sitting Sitting Sitting 02 Sat by Pulse Oximetry 85 L 90 L 89 L Oxygen Delivery Method Room Air Nasal Cannula Nasal Cannula Oxygen Flow Rate (LPM) 6 6 11/09/19 14:10 11/09/19 14:40 Temperature 97.7 F Temperature Source Oral Pulse Rate 55 L Pulse Rate [Left Radial] 55 L Respiratory Rate 20 Blood Pressure 139/70 Blood Pressure [Right Arm] 139/70 Blood Pressure Mean [Right Arm] 93 Blood Pressure Source Automatic Cuff Blood Pressure Source [Right Arm] Automatic Cuff Blood Pressure Position Sitting Blood Pressure Position [Right Arm] Sitting 02 Sat by Pulse Oximetry 90 L Oxygen Delivery Method Nasal Cannula Nasal Cannula Oxygen Flow Rate (LPM) 6 - Lab Data Lab results reviewed: Yes: I reviewed the patient's lab results. Lab Results 11/09/19 13:26: Specimen Source Left radial, O2 % 6l, ABG pH 7.40, ABG pCO2 26.6 L, ABG pO2 54.7 L, ABG HCO3 16.0 L, ABG Total CO2 16.8 L, ABG O2 Saturation 89 L, ABG Base Excess -8.8 L, Vitor Test Acceptable 11/09/19 13:30: WBC 7.8, RBC 5.23, Hgb 15.4, Hct 44.5, MCV 85.1, MCH 29.5, MCHC 34.6, RDW 14.4, Plt Count 220, MPV 8.2, Neut % (Auto) 82.6 H, Lymph % (Auto) 12.2, Armstrong % (Auto) 4.7, Eos % (Auto) 0.1, Baso % (Auto) 0.3, Neut # (Auto) 6.4, Lymph # (Auto) 1.0, Armstrong # (Auto) 0.4, Eos # (Auto) 0.0, Baso # (Auto) 0.0 11/09/19 13:30: Sodium 140, Potassium 4.4, Chloride 105, Carbon Dioxide 21 L, Anion Gap 18.4 H, BUN 26 H, Creatinine 1.10, Estimated Creat Clear 95, Estimated GFR 65, Est GFR ( Amer) 79, Glucose 173 H, Calcium 9.3, Total Bilirubin 1.1, AST 34, ALT 17, Alkaline Phosphatase 50, Total Protein 7.5, Albumin 3.9, Globulin 3.6 H, Albumin/Globulin Ratio 1.1 11/09/19 13:30: Lactate 2.3 H 11/09/19 13:58: PT 18.3 H, INR 1.73 H Result diagrams: 11/09/19 13:30 11/09/19 13:30 Orders (Tests/Meds): ED MEDICATIONS Generic Name Dose Route Start Last Admin Trade Name Freq PRN Reason Stop Dose Admin Acetaminophen 650 mg 11/09/19 14:53 Acetaminophen 325mg Tab PO 12/09/19 14:52 Q6HP PRN Mild pain,fever,headache Albuterol Sulfate 2 puffs 11/10/19 00:00 Proventil-Hfa 90mcg/Puff Inhaler IH 12/10/19 00:00 Q6RT DANIELLE Ascorbic Acid 500 mg 11/09/19 17:00 11/09/19 16:35 Vitamin C 500mg Tablet PO 12/09/19 16:59 500 mg QID DANIELLE Administration Carvedilol 25 mg 11/09/19 21:00 Coreg 25mg Tabl
--- NOTE | 2019-11-09 12:56 | XR_ITS ---
PROCEDURE: XR CHEST PORTABLE CLINICAL INDICATION: soa - covid 19 COMPARISON: No exams were available for comparison FINDINGS: Cardiomegaly. Prior median sternotomy/CABG. No lobar consolidation or collapse. There are slight increased markings in the right lower lobe which may be due to soft tissue attenuation. Upright PA and lateral chest may provide further evaluation. There is mild right apical pleural thickening IMPRESSION: No definite acute finding. See above for detail. Cardiomegaly Dictated by: Vitor Barbosa MD 11/09/2019 15:39 Vitor Barbosa MD in [place] 11/09/2019 15:39
[2019-11-09 13:31] LABS: ABG Base Excess -8.8 mmol/L (-2.4-2.3); ABG Oxygen Saturation 89 % (90-100); ABG PCO2 26.6 mmhg (35.0-45.0); ABG PO2 54.7 mmhg (80-100); ABG TCO2 16.8 mmhg (23-27)
[2019-11-09 13:34] LABS: Allen's Test Acceptable; Oxygen 6L %; Source Left Radial
[2019-11-09 13:47] LABS: Basophils % 0.3 % (0.1-2.0); Eosinophils % 0.1 % (0.1-12.0); Hematocrit 44.5 % (42.0-52.0); Hemoglobin 15.4 g/dL (14.1-18.0); Lymphocytes % 12.2 % (10-50); Mean Corpuscular HGB Conc 34.6 g/dL (31.8-35.4); Mean Corpuscular Hemoglobin 29.5 pg (27.0-31.2); Mean Corpuscular Volume 85.1 fl (80-94); Mean Platelet Volume 8.2 fl (7.4-10.4); Monocytes # 0.4 K/mm3 (0.1-1.0); Monocytes % 4.7 % (1.7-9.3); Neutrophils # 6.4 K/mm3 (1.8-7.8); Neutrophils % 82.6 % (37.0-80.0); Platelet Count 220 K/mm3 (142-424); Red Blood Count 5.23 M/mm3 (4.60-6.20); Red Cell Distribution Width 14.4 % (11.5-17.5); White Blood Count 7.8 K/mm3 (4.8-10.8)
[2019-11-09 13:49] LABS: Chloride 105 mmol/L (98-107)
[2019-11-09 13:50] LABS: Potassium 4.4 mmoL/L (3.5-5.1); Sodium 140 mmol/L (136-145)
--- NOTE | 2019-11-09 13:51 | PC.NURSE ---
ER states to wait until pt is admitted to do neb treatment, discussed this with Leidy in [facility].
[2019-11-09 13:52] LABS: Alanine Aminotransferase 17 U/L (12-78); Aspartate Amino Transferase 34 U/L (17-59); Bilirubin,Total 1.1 mg/dl (0.2-1.3); Blood Urea Nitrogen 26 mg/dl (9-20); Creatinine Clearance Estimated 95 mL/min (50-200); Estimated Glomerular Filt Rate 65 ml/min (>60); GFR (African American) 79 ML/MIN (>60)
[2019-11-09 13:53] LABS: Albumin Level 3.9 g/dl (3.5-5.0); Albumin/Globulin Ratio 1.1 (1.1-1.8); Alkaline Phosphatase 50 U/L (38-126); Anion Gap 18.4 mEq/L (5-15); Calcium 9.3 mg/dl (8.4-10.2); Carbon Dioxide 21 mmol/L (22.0-30.0); Globulin 3.6 g/dL (1.3-3.2); Glucose 173 mg/dl (74-100); Lactic Acid 2.3 mmol/L (0.7-2.1); Total Protein,Serum 7.5 g/dl (6.3-8.2)
--- NOTE | 2019-11-09 13:53 | PC.NURSE ---
private household worker called stating Dr. Perea has called her and is already anticipating admitting pt so she has already planned a bed assignment for pt, just to let her know when we are ready for admission. notified ER .
--- NOTE | 2019-11-09 14:11 | PC.NURSE ---
Calling Dr Perea at this time.
--- NOTE | 2019-11-09 14:13 | PC.NURSE ---
Dr Perea to return call.
--- NOTE | 2019-11-09 14:20 | PC.NURSE ---
dr valente returned call.
--- NOTE | 2019-11-09 14:55 | PC.NURSE ---
report called to Manjeet Thao RN in the covid unit at this time per JENNIFER Buck
[2019-11-09 15:45] LABS: INR 1.73 (0.9-1.1); Prothrombin Time 18.3 seconds (9.4-11.8)
--- NOTE | 2019-11-09 16:38 | PC.NURSE ---
RT tried to get sputum sample, pt could not cough up anything at this time. Encouraged pt to attempt to get a sample at some time tonight.
--- NOTE | 2019-11-09 17:04 | HMH.HP ---
*Admission Date: 11/09/19 *Chief complaint: SOA, COVID-19 respiratory failure *History of present illness: Mr. Bledsoe is a 78yo M with Hx of Afib, HTN, warfarin therapy, CAD, COPD, and T2DM who was diagnosed with COVID-19 on 11/02/19 after his was admitted to [facility] and diagnosed with new onset hypoxemic respiratory failure. He was brought in to the ER by ambulance for shortness of breath and worsening fatigue/diarrhea over the past few days. He reported that he started getting short of breath over the past couple of days, felt dizzy and weak, and had decreased PO intake and increased loose stools. He denies having had any fever. In the ER he was frankly hypoxic and needed ~6L NC O2 for Sats in the low 90s. On interview he reports a small amount of sputum with his cough. He was admitted to medicine for further management of his acute hypoxemic respiratory failure and COVID-19 pneumonia. On assessment in Isolation unit he was found to have stable O2 sats in low 90s on HiFlow NC O2 at 50% and 30L. Appears fatigued and ill, but upbeat. Of note, he has been on outpatient medications for COVID. Started on broad spectrum CAP abx remdesivir, steroids, vitamins, and lovenox. [facility] History I have reviewed the patient's past medical history: Yes Medical History: Reports:: Atrial Fibrillation, Cancer, Coronary Artery Disease, Diabetes Mellitus Type 2, Hyperlipidemia, Hypertension, Peripheral Artery Disease Denies:: Diabetes Mellitus Type 1, Internal Pacemaker, MRSA, Seizures *Have you ever received a pneumonia vaccine?: No *Have you received a flu vaccine this season?: No Other Medical History: Reports: Arthritis, Cataracts Laterality Cases: Left: Total Hip Replacement, Bilateral: Tonsillectomy Other Surgeries: Yes: Appendectomy, CABG, Cancer Surgery, Cardiac Catheterization, Hernia Repair. No: Pacemaker Amputation: No Fractures: No - *Social History Smoking Status: Former smoker Tobacco Type: cigarettes # Packs/Day (cigarettes): 1 #Yrs smoked (if former smoker): 30 Alcohol Intake: never Substance Use Type: denies use *Occupational Status:: retired Housing: house Household Members: spouse *Travel in the last 8 weeks: None Family Hx:: Cancer, Stroke Review of Systems - Review of Systems Review of systems:: pertinent systems reviewed and negative unless documented below (14 point review of systems performed, pertinent positives and negatives as per HPI) - *Neurologic Reports headache(s) (not currently), Reports weakness Meds Home Medications Medication Instructions Recorded Confirmed Type Aspirin [Aspir 81] 81 mg PO DAILY 01/15/18 11/09/19 History Warfarin Sodium 5 mg PO DAILY 01/15/18 11/09/19 History lisinopril 10 mg tablet 10 mg PO DAILY #90 tab 04/13/18 11/09/19 Rx warfarin 5 mg tablet 5 mg PO DIRECTED #120 tab 10/12/18 08/30/19 Rx Dapagliflozin Propanediol [Farxiga] 10 mg PO DAILY 08/20/19 08/30/19 History Digoxin 125 mcg PO DAILY 08/20/19 11/09/19 History Linagliptin [Tradjenta 5mg tablet] 5 mg PO DAILY 08/20/19 08/30/19 History [place]-3 Fatty Acids/Fish Oil [Fish 1 each PO DAILY 08/20/19 11/09/19 History Oil 1,000 mg Capsule] Rosuvastatin Calcium 20 mg PO DAILY 08/20/19 11/09/19 History calcium polycarbophiL [Fiber Lax] 50 mg PO DAILY 08/20/19 08/30/19 History carvediloL [Carvedilol 25mg Tab] 25 mg PO BID 08/20/19 11/09/19 History metformin 1,000 mg tablet 500 mg PO BID 09/07/19 11/09/19 History spironolactone 25 mg tablet 12.5 mg PO DAILY 90 Days #45 tab 09/07/19 11/09/19 Rx Allergies Allergy/AdvReac Type Severity Reaction Status Date / Time morphine Allergy Verified 09/07/19 09:57 nitroglycerin Allergy Verified 09/07/19 09:57 Exam Vital signs and Labs for Last 24 Hours: Temp Pulse Resp BP Pulse Ox 97.7 F 58 L 20 150/79 H 92 L 11/09/19 14:40 11/09/19 14:52 11/09/19 14:40 11/09/19 14:52 11/09/19 14:52 Laboratory Results - last 24 hr 11/09/19 13:26: Specimen Source Left radial, O2 % 6l,
[2019-11-09 17:42] LABS: Reflex Lactic Add Lactic Reflex
--- NOTE | 2019-11-09 18:30 | PC.NURSE ---
PT AO*4, ABLE TO FOLLOW COMMANDS AND ANSWER QUESTIONS APPROPRIATELY, NO SIGNS OF CONFUSION. PT HAS VERY LITTLE APPETITE AND ONLY ATE 25% OF DINNER. PT STATES THAT HE DOES NOT FEEL SHORT OF AIR AT THIS TIME, CURRENTLY ON 50% O2 @30 LPM VAPOTHERM, LUNG SOUNDS DIMINISHED ON AUSCULTATION, NON-PRODUCTIVE INTERMITTENT COUGH NOTED, SPUTUM SAMPLE ORDERED, PT UNABLE TO PROVIDE SAMPLE AT THIS TIME, PT SINUS LEAH ON TELEMETRY, BLOOD PRESSURE HAS REMAINED WNL SINCE ADMISSION TO SCU, ABD IS SOFT ROUND AND NON-TENDER, PT DENIES N/V/D OR PAIN IN ABD AREA, PT URINATED IN URINAL *1 SINCE ARRIVAL TO SCU, PT CONFIRMS THAT HE IS DIABETIC BUT HAS NOT REQUIRED INSULIN T/O SHIFT, LAST FSBS 147, SSI HELD AT THIS TIME, PT IS AFEBRILE AND DENIES PAIN, SCATTERED BRUISING NOTED ON BLE, PT STATES THAT IT IS FROM MY WARFARIN , NO NEEDS VOICED AT THIS TIME, WILL CONTINUE TO MONITOR.
[2019-11-09 18:40] LABS: Lactic Acid Follow Up (RFLX 1) 1.7 mmol/L (0.7-2.1)
--- NOTE | 2019-11-09 20:44 | PC.NURSE ---
He is A&OX4. Turns and repositions himself in the bed independently. Continues on Vapotherm @ 30 LPM 50% FiO2. Lung sounds diminished. Cough noted when listening to lung sounds but denies cough otherwise. Respiratory panel collected. Denies pain. Denies SOA, weakness, or dizziness at this time. He reports his last BM was today and that it was diarrhea. No BM thus far this shift. Sinus steve -NSR on telemetry.
--- NOTE | 2019-11-09 20:48 | PC.NURSE ---
Continue to await med list from family.
[2019-11-09 21:21] LABS: Adenovirus,PCR Not Detected (NotDetected); Bordetella Pertussis Not Detected (NotDetected); Chlamydophila Pneumoniae, PCR Not Detected (NotDetected); Coronavirus 229E Not Detected (NotDetected); Coronavirus NL63 Not Detected (NotDetected); Coronavirus OC43 Not Detected (NotDetected); Coronovirus HKU1,PCR Not Detected (NotDetected); Human Metapneumovirus Not Detected (NotDetected); Influenza A, PCR Not Detected (NotDetected); Influenza AH1, 2009 Not Detected (NotDetected); Influenza AH1, PCR Not Detected (NotDetected); Influenza AH3,PCR Not Detected (NotDetected); Influenza B, PCR Not Detected (NotDetected); Mycoplasma Pneumoniae, PCR Not Detected (NotDetected); Parainfluenza 1, PCR Not Detected (NotDetected); Parainfluenza 2, PCR Not Detected (NotDetected); Parainfluenza 3, PCR Not Detected (NotDetected); Parainfluenza 4, PCR Not Detected (NotDetected); Respiratory Syncytial Virus Not Detected (NotDetected); Rhinovirus/Enterovirus Not Detected (NotDetected)
--- NOTE | 2019-11-09 21:41 | PC.NURSE ---
O2 sat maintaining at 87-88% on vapotherm @ 30LPM 50% FiO2; therefore; FiO2 increased to 60% and he is 91% at this time.
[2019-11-10] VITALS (14 sets, daily range): BP systolic 135–171; BP diastolic 64–94; PULSE 40–66; RESP 17–20; TEMP 36.4–36.8; O2SAT 88–95; BMI 30.3
--- NOTE | 2019-11-10 00:16 | PC.NURSE ---
No aerochamber available.
--- NOTE | 2019-11-10 05:41 | PC.NURSE ---
He has been awake most of the night. Bradycardia in the 40s most of the night and occasionally drops into the 30s for a short period of time. PVCs also noted. Went into afib for a short period of time as well. Continues on vapotherm but was increased to 32LPM 60% FiO2 r/t oxygen sats.
[2019-11-10 06:06] LABS: Basophils % 0.2 % (0.1-2.0); Eosinophils % 0.2 % (0.1-12.0); Hematocrit 40.3 % (42.0-52.0); Hemoglobin 14.1 g/dL (14.1-18.0); Lymphocytes # 1.1 K/mm3 (0.7-4.5); Lymphocytes % 12.7 % (10-50); Mean Corpuscular Hemoglobin 29.6 pg (27.0-31.2); Mean Corpuscular Volume 84.6 fl (80-94); Mean Platelet Volume 8.3 fl (7.4-10.4); Monocytes # 0.6 K/mm3 (0.1-1.0); Monocytes % 6.4 % (1.7-9.3); Neutrophils # 6.9 K/mm3 (1.8-7.8); Neutrophils % 80.5 % (37.0-80.0); Platelet Count 233 K/mm3 (142-424); Red Blood Count 4.76 M/mm3 (4.60-6.20); Red Cell Distribution Width 14.4 % (11.5-17.5); White Blood Count 8.6 K/mm3 (4.8-10.8)
[2019-11-10 06:36] LABS: Chloride 110 mmol/L (98-107)
[2019-11-10 06:37] LABS: Potassium 3.9 mmoL/L (3.5-5.1); Sodium 141 mmol/L (136-145)
[2019-11-10 06:39] LABS: Alanine Aminotransferase 13 U/L (12-78); Anion Gap 16.9 mEq/L (5-15); Aspartate Amino Transferase 31 U/L (17-59); Blood Urea Nitrogen 26 mg/dl (9-20); Carbon Dioxide 18 mmol/L (22.0-30.0); Creatinine Clearance Estimated 101 mL/min (50-200); Estimated Glomerular Filt Rate 82 ml/min (>60); GFR (African American) 99 ML/MIN (>60)
[2019-11-10 06:40] LABS: Albumin Level 3.2 g/dl (3.5-5.0); Albumin/Globulin Ratio 1.1 (1.1-1.8); Alkaline Phosphatase 41 U/L (38-126); Bilirubin,Total 0.7 mg/dl (0.2-1.3); Calcium 8.4 mg/dl (8.4-10.2); Globulin 2.8 g/dL (1.3-3.2); Glucose 133 mg/dl (74-100); Magnesium 2.3 mg/dl (1.6-2.3)
[2019-11-10 06:45] LABS: C-Reactive Protein 58.1 mg/L (0-4)
--- NOTE | 2019-11-10 08:20 | HMH.ACPN2 ---
Internal Medicine - PN: Subj *Date: 11/10/19 *Time: 08:20 Interval history: Patient is in good spirits, alert, oriented x3. Tolerating high flow oxygen with Vapotherm device well. Exam Vital signs and Labs for Last 24 Hours: Temp Pulse Resp BP Pulse Ox 97.6 F 48 L 17 142/67 H 91 L 11/10/19 05:42 11/10/19 05:42 11/10/19 05:42 11/10/19 05:42 11/10/19 06:40 Laboratory Results - last 24 hr 11/09/19 13:26: Specimen Source Left radial, O2 % 6l, ABG pH 7.40, ABG pCO2 26.6 L, ABG pO2 54.7 L, ABG HCO3 16.0 L, ABG Total CO2 16.8 L, ABG O2 Saturation 89 L, ABG Base Excess -8.8 L, Vitor Test Acceptable 11/09/19 13:30: WBC 7.8, RBC 5.23, Hgb 15.4, Hct 44.5, MCV 85.1, MCH 29.5, MCHC 34.6, RDW 14.4, Plt Count 220, MPV 8.2, Neut % (Auto) 82.6 H, Lymph % (Auto) 12.2, [place] % (Auto) 4.7, Eos % (Auto) 0.1, Baso % (Auto) 0.3, Neut # (Auto) 6.4, Lymph # (Auto) 1.0, [place] # (Auto) 0.4, Eos # (Auto) 0.0, Baso # (Auto) 0.0 11/09/19 13:30: Sodium 140, Potassium 4.4, Chloride 105, Carbon Dioxide 21 L, Anion Gap 18.4 H, BUN 26 H, Creatinine 1.10, Estimated Creat Clear 95, Estimated GFR 65, Est GFR ( Amer) 79, Glucose 173 H, Calcium 9.3, Total Bilirubin 1.1, AST 34, ALT 17, Alkaline Phosphatase 50, Total Protein 7.5, Albumin 3.9, Globulin 3.6 H, Albumin/Globulin Ratio 1.1 11/09/19 13:30: Lactate 2.3 H 11/09/19 13:58: PT 18.3 H, INR 1.73 H 11/09/19 18:25: Lactate 1.7 11/09/19 20:30: Chlamy pneumoniae PCR Not detected, Adenovirus (PCR) Not detected, B. pertussis DNA (PCR) Not detected, Coronavirus OC43 (PCR) Not detected, Coronavirus HKU1 (PCR) Not detected, Coronavirus 229E (PCR) Not detected, Coronavirus NL63 (PCR) Not detected, Human Metapneumovir PCR Not detected, Influenza A (H1) PCR Not detected, Influ A (H1N1/09) PCR Not detected, Influenza A (H3) PCR Not detected, Influenza Type A (PCR) Not detected, Influenza Type B (PCR) Not detected, M. pneumoniae (PCR) Not detected, Parainfluenza 1 (PCR) Not detected, Parainfluenza 2 (PCR) Not detected, Parainfluenza 3 (PCR) Not detected, Parainfluenza 4 (PCR) Not detected, RSV (PCR) Not detected, Entero/Rhino (PCR) Not detected 11/10/19 05:05: WBC 8.6, RBC 4.76, Hgb 14.1, Hct 40.3 L, MCV 84.6, MCH 29.6, MCHC 35.0, RDW 14.4, Plt Count 233, MPV 8.3, Neut % (Auto) 80.5 H, Lymph % (Auto) 12.7, [place] % (Auto) 6.4, Eos % (Auto) 0.2, Baso % (Auto) 0.2, Neut # (Auto) 6.9, Lymph # (Auto) 1.1, [place] # (Auto) 0.6, Eos # (Auto) 0.0, Baso # (Auto) 0.0 11/10/19 05:05: Sodium 141, Potassium 3.9, Chloride 110 H, Carbon Dioxide 18 L, Anion Gap 16.9 H, BUN 26 H, Creatinine 0.90, Estimated Creat Clear 101, Estimated GFR 82, Est GFR ( Amer) 99 D, Glucose 133 H D, Calcium 8.4, Magnesium 2.3, Total Bilirubin 0.7, AST 31, ALT 13, Alkaline Phosphatase 41, C-Reactive Protein 58.1 H, Total Protein 6.0 L, Albumin 3.2 L D, Globulin 2.8, Albumin/Globulin Ratio 1.1 I & O for Last 24 hours: Intake & Output 11/07/19 11/08/19 11/09/19 11/10/19 11:59 11:59 11:59 11:59 Intake Total 1577 / 1577 Output Total 790 / 790 Balance 787 / 787 Weight 249 lb 4.956 oz Microbiology Reports for the Last 24 Hours: Microbiology 11/09/19 21:41 Sputum - Expectorated Sputum Gram Stain - Final Narrative: ENT exam clear. Lungs have fairly good air entry. Symmetric. Some scattered rhonchi. Heart rate regular in fact is somewhat bradycardic at rest. Abdomen soft and nontender. Good distal perfusion, no rash, neurologically intact. Assessment and Plan (1) Acute hypoxemic respiratory failure due to COVID-19 Current visit: Yes Status: Acute Category: Medical Code(s): U07.1 - COVID-19; J96.01 - Acute respiratory failure with hypoxia (2) Pneumonia due to COVID-19 virus Current visit: Yes Status: Acute Category: Medical Code(s): U07.1 - COVID-19; J12.89 - Other viral pneumonia (3) Obesity (BMI 30.0-34.9) Current visit: No Status: Acute Category: Medical Code(s): E66.9 - Obesity, unspecified
--- NOTE | 2019-11-10 08:24 | PC.NURSE ---
md made aware of the heart rate 48-59. stated okay to hold coreg and digoxin
--- NOTE | 2019-11-10 11:11 | HMH.PHAVTE ---
[facility] Pharmacy VTE Monitoring - Patient Demographics Admission date: 11/09/19 Report Date: 11/10/19 Time: 11:11 Allergies/Adverse Reactions: Patient Allergies morphine Allergy (Verified 09/07/19 09:57) nitroglycerin Allergy (Verified 09/07/19 09:57) Height: 1.93 m Weight: 113.085 kg Patient Problems: Current Active Problems Pneumonia due to COVID-19 virus (Acute) Respiratory failure with hypoxia (Acute) Acute hypoxemic respiratory failure due to COVID-19 (Acute) - VTE Risk Labs: VTE Related Lab Results Hgb 14.1 g/dL (14.1-18.0) 11/10/19 05:05 Hct 40.3 % (42.0-52.0) L 11/10/19 05:05 Plt Count 233 K/mm3 (142-424) 11/10/19 05:05 PT 18.3 seconds (9.4-11.8) H 11/09/19 13:58 INR 1.73 (0.9-1.1) H 11/09/19 13:58 BUN 26 mg/dl (9-20) H 11/10/19 05:05 Creatinine 0.90 mg/dl (0.66-1.25) 11/10/19 05:05 Estimated Creat Clear 101 mL/min (50-200) 11/10/19 05:05 Was VTE Risk Assessment Performed: Yes VTE Score: 5 VTE Risk Level: Low Risk - Prophylaxis VTE Prophylaxis Ordered?: Yes Types of VTE Prophylaxis: Pharmacological Pharmacologic Type: Enoxaparin
[2019-11-10 16:07] LABS: POC Glucose,Bedside 132 (70-110)
[2019-11-10 16:07] LABS: POC Glucose,Bedside 115 (70-110)
[2019-11-10 16:07] LABS: POC Glucose,Bedside 143 (70-110)
[2019-11-10 16:07] LABS: POC Glucose,Bedside 207 (70-110)
--- NOTE | 2019-11-10 17:12 | PC.NURSE ---
patient has done well this shift. has had no complaints. sats have been 88-91% on 35L and 60% fio2 vapotherm. lungs diminished. heart rate has been 40-60 some pvcs noted. bp has been stable. bath given this shift and bed linen changed. did get up to chair while linens were changed. some weakness noted with activity. has been mostly alert and oriented but this evening has some minor disorientation asking if this was a school or jehovah's witness. however, had good recall about previous events this shift, and was still oriented x4 once redirected. education done remdesivir and once finished flushed with 30ml ns. patient has spoken with family this shift. will continue to monitor.
[2019-11-10 17:14] LABS: POC Glucose,Bedside 183 (70-110)
--- NOTE | 2019-11-10 18:43 | PC.NURSE ---
patient is becoming a littler more agitated this evening stating i am going home . Daughter called stating that patient called her upset that he stated he didn't remember staying in the hospital last night, and threatening to walk home to [place]. patient is mostly alert and oriented, but is anxious to go home and having a hard time comprehending that he is sick in the hospital.
[2019-11-10 20:17] LABS: POC Glucose,Bedside 136 (70-110)
[2019-11-11] VITALS (14 sets, daily range): BP systolic 142–176; BP diastolic 76–98; PULSE 55–90; RESP 20–35; TEMP 36.4–37.1; O2SAT 87–96; BMI 30.7
--- NOTE | 2019-11-11 04:00 | PC.NURSE ---
pt A&OX4 with episodes of confusion but is easily reoriented. Lungs diminished throughout. vapotherm 60% 35 LPM 02 sat between 85-91%. pt denies SOA or pain. pt has been very restless and agitated throughout shift. MD computer application developer notified and PRN meds given, pt has not slept any this shift. pt has ambulated between chair and beds several times this shift.
[2019-11-11 05:22] LABS: POC Glucose,Bedside 133 (70-110)
[2019-11-11 06:30] LABS: Alanine Aminotransferase 19 U/L (12-78); Albumin Level 3.5 g/dl (3.5-5.0); Alkaline Phosphatase 62 U/L (38-126); Anion Gap 12.5 mEq/L (5-15); Aspartate Amino Transferase 41 U/L (17-59); Bilirubin,Total 0.9 mg/dl (0.2-1.3); Blood Urea Nitrogen 23 mg/dl (9-20); Calcium 8.5 mg/dl (8.4-10.2); Carbon Dioxide 25 mmol/L (22.0-30.0); Chloride 109 mmol/L (98-107); Creatinine Clearance Estimated 102 mL/min (50-200); Estimated Glomerular Filt Rate 94 ml/min (>60); GFR (African American) 114 ML/MIN (>60); Globulin 3.4 g/dL (1.3-3.2); Glucose 152 mg/dl (74-100); Potassium 3.5 mmoL/L (3.5-5.1); Sodium 143 mmol/L (136-145); Total Protein,Serum 6.9 g/dl (6.3-8.2)
--- NOTE | 2019-11-11 06:40 | PC.NURSE ---
pt maintaining O2 sat of 83% notified RT. Vapotherm now on 70% 32LPM
--- NOTE | 2019-11-11 07:31 | HMH.ACPN2 ---
Internal Medicine - PN: Subj *Date: 11/11/19 *Time: 07:31 Interval history: Patient has done very nicely with oxygen therapy but has developed some significant sundowning type behaviors with disorientation and agitation. Has been removing his oxygen therapy frequently which causes desaturation. Ativan and Haldol were given last night. Very minimally effective. Exam Vital signs and Labs for Last 24 Hours: Temp Pulse Resp BP Pulse Ox 97.8 F 65 20 168/86 H 89 L 11/11/19 04:00 11/11/19 04:00 11/11/19 04:00 11/11/19 04:00 11/11/19 06:45 Laboratory Results - last 24 hr 11/09/19 16:44: POC Glucose 143 H 11/09/19 20:11: POC Glucose 207 H 11/10/19 06:49: POC Glucose 115 H 11/10/19 11:36: POC Glucose 132 H 11/10/19 16:59: POC Glucose 183 H 11/10/19 20:06: POC Glucose 136 H 11/11/19 04:55: POC Glucose 133 H 11/11/19 05:30: Sodium 143, Potassium 3.5, Chloride 109 H, Carbon Dioxide 25 D, Anion Gap 12.5, BUN 23 H, Creatinine 0.80, Estimated Creat Clear 102, Estimated GFR 94, Est GFR ( Amer) 114, Glucose 152 H, Calcium 8.5, Total Bilirubin 0.9, AST 41 D, ALT 19 D, Alkaline Phosphatase 62, Total Protein 6.9, Albumin 3.5, Globulin 3.4 H, Albumin/Globulin Ratio 1.0 L I & O for Last 24 hours: Intake & Output 11/08/19 11/09/19 11/10/19 11/11/19 11:59 11:59 11:59 11:59 Intake Total 1657 / 1657 2354 / 2354 Output Total 990 / 990 2049 / 2049 Balance 667 / 667 304 / 304 Weight 249 lb 4.956 oz 252 lb 6.4 oz Microbiology Reports for the Last 24 Hours: Microbiology 11/09/19 21:41 Sputum - Expectorated Sputum Gram Stain - Final 11/09/19 21:41 Sputum - Expectorated Sputum Sputum Culture - Preliminary Narrative: Patient is pleasant, alert. Able to tell me where he is and what day of the week it is, however does have some agitation behaviors with constant picking at his gown and nasal cannula Vapotherm oxygen. Fairly good air entry, some minimal rhonchi bilaterally. Heart rate regular. Abdomen soft, no edema, neurologically intact as above except for his agitation. ENT exam otherwise clear. Assessment and Plan (1) Acute hypoxemic respiratory failure due to COVID-19 Current visit: Yes Status: Acute Category: Medical Code(s): U07.1 - COVID-19; J96.01 - Acute respiratory failure with hypoxia (2) Pneumonia due to COVID-19 virus Current visit: Yes Status: Acute Category: Medical Code(s): U07.1 - COVID-19; J12.89 - Other viral pneumonia (3) Obesity (BMI 30.0-34.9) Current visit: No Status: Acute Category: Medical Code(s): E66.9 - Obesity, unspecified (4) Type 2 diabetes mellitus Current visit: No Status: Acute Qualifiers: Diabetes mellitus contract clerk insulin use: without group home use Diabetes mellitus complication status: with hyperglycemia Qualified Code(s): E11.65 - Type 2 diabetes mellitus with hyperglycemia Category: Medical Code(s): E11.9 - Type 2 diabetes mellitus without complications (5) Warfarin anticoagulation Current visit: No Status: Acute Category: Medical Code(s): Z79.01 - assisted (current) use of anticoagulants (6) Atrial fibrillation Current visit: No Status: Chronic Qualifiers: Atrial fibrillation type: longstanding persistent Qualified Code(s): I48.11 - Longstanding persistent atrial fibrillation Category: Medical Code(s): I48.91 - Unspecified atrial fibrillation (7) CAD (coronary artery disease) Current visit: No Status: Chronic Qualifiers: Coronary Disease-Associated Artery/Lesion type: bypass graft [place] vs. transplanted heart: [place] heart Associated angina: without angina Qualified Code(s): I25.810 - Atherosclerosis of coronary artery bypass graft(s) without angina pectoris Category: Medical Code(s): I25.10 - Atherosclerotic heart disease of [place] coronary artery without angina pectoris (8) HLD (hyperlipidemia) Current visit: No Status: Chronic Qualifiers:
--- NOTE | 2019-11-11 09:45 | XR_ITS ---
PROCEDURE: XR CHEST PORTABLE CLINICAL HISTORY: increased need of o2, labored breathing COMPARISON: CR XR CHEST PORTABLE from 11/09/2019 FINDINGS: There is cardiomegaly. There has been a prior CABG Faint opacification is present in the right upper right lower and left lower lobe consistent with bilateral pneumonia which has developed since the previous exam. No acute bony abnormalities. IMPRESSION: Cardiomegaly with bilateral pneumonia Dictated by: Vitor Barbosa MD 11/11/2019 13:18 Vitor Barbosa MD in [facility] 11/11/2019 13:18
--- NOTE | 2019-11-11 10:04 | PC.NURSE ---
notified dr antonio that patient fio2 on vapotherm was increased to 100% and sats were 88%. patient also noted to be breathing 30 a minute. he ordered a stat xray and 40mg iv lasix once. this was given at 1000.
--- NOTE | 2019-11-11 10:53 | PC.NURSE ---
patient continued to keep jumping out of bed impulsively. bed alarm remains on and when sitting in chair staff are at door. since lasix patient has gotten up more to pee. did start putting leads and pulse ox in urinal. lab was called about need for swab. and radiology was called for xray
[2019-11-11 11:50] LABS: POC Glucose,Bedside 161 (70-110)
--- NOTE | 2019-11-11 12:40 | PC.NURSE ---
spoke with dr. antonio who stated he had spoken with infection control and wants a in house covid test done on patient. lab was called and made aware of the new order.
--- NOTE | 2019-11-11 14:13 | PC.NURSE ---
lab has been called twice about need for covid swab. if patient comes back negative md wants patient moved to floor
--- NOTE | 2019-11-11 17:26 | PC.NURSE ---
patient has finally had some rest this shift. however it was sporadic. he has been very agitated with staff at times, and continuously pulls of o2 and pulse ox. it is noted when he pulls of oxygen his sats drop to low 70s. with vapotherm on at 40l 100% fio2 he sats about 88-92%. while asleep heart rate 40-60s. awake noted to be slightly higher occasional pvcs noted. lungs are clear but diminished. at beginning of shift new iv placed in upper left arm 20 gauge. continues to have blood return and flush. he has refused to eat anything this shift. refused his evening albuterol treatment. awaiting pcr result for covid 19. some confusion noted with agitation. will continue to monitor.
--- NOTE | 2019-11-11 18:44 | PC.NURSE ---
I was notified by lab that patients covid swab is still positive.
--- NOTE | 2019-11-11 18:45 | PC.NURSE ---
reported to dr. antonio that patient covid result was still positive.
[2019-11-11 19:25] LABS: POC Glucose,Bedside 151 (70-110)
[2019-11-11 19:59] LABS: POC Glucose,Bedside 171 (70-110)
[2019-11-12] VITALS (17 sets, daily range): BP systolic 115–154; BP diastolic 72–92; PULSE 60–75; RESP 32–40; TEMP 36.6–36.8; O2SAT 84–97; BMI 29.5
--- NOTE | 2019-11-12 03:58 | PC.NURSE ---
pt is A&OX4. lungs are diminished throughout. Pt on 100% 32LPM via vaportherm. O2 sat range between 85-91%. Pt c/o SOA during exertion. while pt sleeping RR increased to 30-35 min. Pt has ambulated to [facility] X2 this shift. pt recieved bath and bed change
[2019-11-12 06:03] LABS: POC Glucose,Bedside 147 (70-110)
[2019-11-12 06:14] LABS: Chloride 110 mmol/L (98-107); Potassium 4.6 mmoL/L (3.5-5.1); Sodium 140 mmol/L (136-145)
[2019-11-12 06:17] LABS: Alanine Aminotransferase 14 U/L (12-78); Albumin Level 3.2 g/dl (3.5-5.0); Albumin/Globulin Ratio 0.8 (1.1-1.8); Alkaline Phosphatase 32 U/L (38-126); Anion Gap 17.6 mEq/L (5-15); Aspartate Amino Transferase 52 U/L (17-59); Bilirubin,Total 1.5 mg/dl (0.2-1.3); Blood Urea Nitrogen 23 mg/dl (9-20); Calcium 8.2 mg/dl (8.4-10.2); Carbon Dioxide 17 mmol/L (22.0-30.0); Creatinine Clearance Estimated 98 mL/min (50-200); Estimated Glomerular Filt Rate 94 ml/min (>60); GFR (African American) 114 ML/MIN (>60); Globulin 3.9 g/dL (1.3-3.2); Glucose 172 mg/dl (74-100); Total Protein,Serum 7.1 g/dl (6.3-8.2)
--- NOTE | 2019-11-12 07:43 | XR_ITS ---
PROCEDURE: XR CHEST PORTABLE CLINICAL HISTORY: increasing o2 demands, tachypnea COMPARISON: CR XR CHEST PORTABLE from 11/09/2019 CR XR CHEST PORTABLE from 11/11/2019 FINDINGS: There is cardiomegaly Faint increased density once again noted in both lower lobes and right upper lobe suspicious for bilateral pneumonia. Consider atypical pneumonia, viral pneumonia/Covid 19 pneumonia. This is slightly worse in the right lower lobe and unchanged on the left. No acute bony abnormalities. IMPRESSION: Bilateral pneumonia slightly worse in the right lower lobe Dictated by: Vitor Barbosa MD 11/12/2019 08:40 Vitor Barbosa MD in [facility] 11/12/2019 08:40
--- NOTE | 2019-11-12 07:47 | PC.NURSE ---
Called radiology to let them know about portable chest xray.
--- NOTE | 2019-11-12 09:07 | PC.NURSE ---
Notified Dr. Plaza of 8.9 lb weight gain.
--- NOTE | 2019-11-12 09:40 | PC.NURSE ---
Dr. Torres at bedside.
[2019-11-12 10:31] LABS: POC Glucose,Bedside 156 (70-110)
--- NOTE | 2019-11-12 10:43 | PC.NURSE ---
Educated pt on how to use an incentive spirometer. Pt's best noted at 1,000. Pt tolerated well. Encouraged him to use it 10 times every hour while awake. Assisted pt up to the chair w 1 person assist. Encouraged pt to try to stay up as long as he could per Dr. Alegria's request. Pt is agreeable. Pt tolerated well.
--- NOTE | 2019-11-12 12:34 | HMH.ACPN ---
Internal Medicine - PN: Subj *Date: 11/12/19 *Time: 12:34 Exam Vital signs and Labs for Last 24 Hours: Temp Pulse Resp BP Pulse Ox 98.0 F 70 32 H 137/80 89 L 11/12/19 11:05 11/12/19 12:00 11/12/19 11:05 11/12/19 11:05 11/12/19 11:55 Laboratory Results - last 24 hr 11/11/19 17:06: POC Glucose 151 H 11/11/19 19:52: POC Glucose 171 H 11/12/19 05:19: POC Glucose 147 H 11/12/19 05:50: Sodium 140, Potassium 4.6 D, Chloride 110 H, Carbon Dioxide 17 L D, Anion Gap 17.6 H, BUN 23 H, Creatinine 0.80, Estimated Creat Clear 98, Estimated GFR 94, Est GFR ( Amer) 114, Glucose 172 H, Calcium 8.2 L, Total Bilirubin 1.5 H, AST 52 D, ALT 14 D, Alkaline Phosphatase 32 L, Total Protein 7.1, Albumin 3.2 L, Globulin 3.9 H, Albumin/Globulin Ratio 0.8 L 11/12/19 10:11: POC Glucose 156 H I & O for Last 24 hours: Intake & Output 11/09/19 11/10/19 11/11/19 11/12/19 23:59 23:59 23:59 23:59 Intake Total 210 / 210 3193 / 3193 1198 / 1198 50 / 50 Output Total 790 / 790 1200 / 1200 4487 / 4487 400 / 400 Balance -580 / -580 1992 / 1992 -3289 / -3289 -350 / -350 Weight 113.086 kg 113.085 kg 114.487 kg 110.223 kg Microbiology Reports for the Last 24 Hours: Microbiology 11/09/19 21:41 Sputum - Expectorated Sputum Gram Stain - Final 11/09/19 21:41 Sputum - Expectorated Sputum Sputum Culture - Preliminary 11/11/19 16:30 Nasopharyngeal Coronavirus COVID-19 PCR - Final 11/09/19 13:30 Blood Blood Culture - Preliminary NO GROWTH AFTER 48 HOURS 11/09/19 13:30 Blood Blood Culture - Preliminary NO GROWTH AFTER 48 HOURS Assessment and Plan (1) Acute hypoxemic respiratory failure due to COVID-19 Current visit: Yes Status: Acute Category: Medical Code(s): U07.1 - COVID-19; J96.01 - Acute respiratory failure with hypoxia (2) Pneumonia due to COVID-19 virus Current visit: Yes Status: Acute Category: Medical Code(s): U07.1 - COVID-19; J12.89 - Other viral pneumonia (3) Obesity (BMI 30.0-34.9) Current visit: No Status: Acute Category: Medical Code(s): E66.9 - Obesity, unspecified (4) Type 2 diabetes mellitus Current visit: No Status: Acute Qualifiers: Diabetes mellitus assisted insulin use: without assisted use Diabetes mellitus complication status: with hyperglycemia Qualified Code(s): E11.65 - Type 2 diabetes mellitus with hyperglycemia Category: Medical Code(s): E11.9 - Type 2 diabetes mellitus without complications (5) Warfarin anticoagulation Current visit: No Status: Acute Category: Medical Code(s): Z79.01 - [facility] (current) use of anticoagulants (6) Atrial fibrillation Current visit: No Status: Chronic Qualifiers: Atrial fibrillation type: longstanding persistent Qualified Code(s): I48.11 - Longstanding persistent atrial fibrillation Category: Medical Code(s): I48.91 - Unspecified atrial fibrillation (7) CAD (coronary artery disease) Current visit: No Status: Chronic Qualifiers: Coronary Disease-Associated Artery/Lesion type: bypass graft [place] vs. transplanted heart: [place] heart Associated angina: without angina Qualified Code(s): I25.810 - Atherosclerosis of coronary artery bypass graft(s) without angina pectoris Category: Medical Code(s): I25.10 - Atherosclerotic heart disease of [place] coronary artery without angina pectoris (8) HLD (hyperlipidemia) Current visit: No Status: Chronic Qualifiers: Hyperlipidemia type: mixed hyperlipidemia Qualified Code(s): E78.2 - Mixed hyperlipidemia Category: Medical Code(s): E78.5 - Hyperlipidemia, unspecified (9) HTN (hypertension) Current visit: No Status: Chronic Qualifiers: Hypertension type: essential hypertension Qualified Code(s): I10 - Essential (primary) hypertension Category: Medical Code(s): I10 - Essential (primary) hypertension (10) S/P CABG x 4 Curren
--- NOTE | 2019-11-12 13:20 | HMH.PULMCON ---
*Admission Date: 11/09/19 *Reason for consult:: Acute hypoxic respiratory failure, COVID-19 pneumonia *History of present illness: Mr. Bledsoe is a 78-year-old male with history of hypertension, A. fib on home warfarin therapy, therapeutic on presentation, chronic smoker more than [id number] smoking history, last more than 15 years ago, not on any inhalers at baseline, denies any respiratory symptoms at baseline recently diagnosed with COVID-19 on 11/02/2019. His was recently admitted to the hospital with similar presentation and was discharged home. Patient complains of his worsening respiratory failure along with fevers for the last 10 days not getting any better. As of breath worsens with exertion and relieved by taking rest. Patient denies any productive cough during this duration. Patient on presentation in the ED was found to hypoxic needing 6 L nasal cannula immediately escalated to high flow nasal cannula. Over the weekend as per the patient chart review and talking to the primary care team, patient respiratory status remained stable on high flow nasal cannula at 100% 40 L settings, saturating 88 to 92%. Pulmonary was consulted for further management. [facility] History Medical History: Reports:: Aneurysm, Atrial Fibrillation, Cancer, Coronary Artery Disease, Diabetes Mellitus Type 2, Hyperlipidemia, Hypertension, Peripheral Artery Disease Denies:: Diabetes Mellitus Type 1, Internal Pacemaker, MRSA, Seizures *Have you ever received a pneumonia vaccine?: Yes *Have you received a flu vaccine this season?: Yes Other Medical History: Reports: Arthritis, Cataracts Laterality Cases: Left: Total Hip Replacement, Bilateral: Tonsillectomy, Total Knee Replacement Other Surgeries: Yes: Appendectomy, CABG, Cancer Surgery, Cardiac Catheterization, Hernia Repair. No: Pacemaker Amputation: No Fractures: No - *Social History Last grade of school completed: High school graduate Smoking Status: Former smoker Tobacco Type: cigarettes # Packs/Day (cigarettes): 1 #Yrs smoked (if former smoker): 30 Alcohol Intake: current Alcohol Intake Frequency:: holidays/special occasions only Substance Use Type: denies use *Occupational Status:: retired Housing: house Household Members: spouse *Travel in the last 8 weeks: None Family Hx:: Cancer, Diabetes, Hypertension [facility] Pulmonology ROS - Constitutional Reports chills, Denies anorexia, Denies body ache(s) - *Cardiovascular Reports shortness of breath, Denies chest pain, Denies chest pain at rest - *Respiratory Respiratory: Yes system reviewed and no additional complaints, except as docu, No change in phlegm color, Yes chest congestion, Yes cough, Yes non-productive cough, Yes dyspnea, Yes dyspnea on exertion, No excessive phlegm production, No coughing up blood, No pain on inspiration - *Gastrointestinal Gastrointestingal: Reports: system reviewed and no additional complaints, except as docu - *Musculoskeletal Musculoskeletal: Reports system reviewed and no additional complaints, except as docu - *Neurologic Reports headache(s) (not currently), Reports weakness Meds Home Medications Medication Instructions Recorded Confirmed Type Warfarin Sodium 5 mg PO DAILY 01/15/18 11/09/19 History Digoxin 125 mcg PO DAILY 08/20/19 11/09/19 History [place]-3 Fatty Acids/Fish Oil [Fish 1 each PO DAILY 08/20/19 11/09/19 History Oil 1,000 mg Capsule] Rosuvastatin Calcium 20 mg PO DAILY 08/20/19 11/09/19 History carvediloL [Carvedilol 25mg Tab] 25 mg PO BID 08/20/19 11/09/19 History metformin 1,000 mg tablet 500 mg PO BID 09/07/19 11/09/19 History spironolactone 25 mg tablet 12.5 mg PO DAILY 90 Days #45 tab 09/07/19 11/09/19 Rx Aspirin [Aspirin 81mg EC Tab] 81 mg PO DAILY 11/10/19 11/10/19 History Nystatin [Nystatin Cr 100,000 0 gm TP TID 11/10/19 11/10/19 History Units/GM 30GM] lisinopriL [Lisinopril 10mg Tab] 10 mg PO DAILY 11/10/19 11/10/19 History Allergies Allergy/AdvReac Type Severity Reaction S
--- NOTE | 2019-11-12 15:10 | PC.NURSE ---
A&OX4. PT HAS TOLERATED 40L 100% ON VAPOTHERM THROUGHOUT SHIFT. OCCASIONAL PRODUCTIVE COUGH NOTED. PT GETS SOB WITH EXERTION. LUNG SOUNDS DIMINISHED THROUGHOUT. HAND CARPET INSTALLER EQUAL. +2 PULSES NOTED THROUGHOUT. NO EDEMA NOTED. TELE IN PLACE THROUGHOUT SHIFT. A FIB NOTED. ACTIVE BOWEL SOUNDS HEARD IN ALL 4 QUADRANTS. SOFT AND NONTENDER ABDOMEN. NO BM THUS FAR. PT VOIDS PER URINAL. CLEAR YELLOW URINE NOTED. PT GOT UP TO THE CHAIR FOR ABOUT 3 HOURS TODAY AND PLANS TO GET UP AGAIN AFTER HE TAKES A NAP. PT REPORTED BACK PAIN AND WAS ADMINISTERED TYLENOL. PT HAS BEEN ENCOURAGED TO USE THE INCENTIVE SPIROMETER THROUGHOUT SHIFT. PT HAS BEEN COMPLIANT AND SEEN USING IT SEVERAL TIMES. PT TOOK ALL MEDICATIONS WELL. HE HAS BEEN DRINKING PLENTY OF WATER, BUT STILL NOT EATING MUCH FOOD. PT RECEIVED AZITHROMYCIN, CEFTRIAXONE, REMDESIVIR THIS SHIFT AND TOLERATED ALL WELL. PT TURNS INDEPENDENTLY IN BED. PT USES 1 PERSON ASSIST TO TRANSFER FROM CHAIR TO BED AND BACK. PT HAS REMAINED AFEBRILE. NO REPORTS OF NAUSEA THUS FAR. PT IS CURRENTLY LYING IN BED SLEEPING. BED IN LOWEST POSITION. CALL LIGHT WITHIN REACH. VSS. WILL CONTINUE TO MONITOR.
[2019-11-12 16:03] LABS: POC Glucose,Bedside 192 (70-110)
--- NOTE | 2019-11-12 16:39 | HMH.ACPN2 ---
Internal Medicine - PN: Subj *Date: 11/12/19 *Time: 16:39 Interval history: Appreciate pulmonary notes.... no changes over today Exam Vital signs and Labs for Last 24 Hours: Temp Pulse Resp BP Pulse Ox 97.8 F 74 40 H 149/80 H 89 L 11/12/19 16:00 11/12/19 16:00 11/12/19 16:00 11/12/19 16:00 11/12/19 16:00 Laboratory Results - last 24 hr 11/11/19 17:06: POC Glucose 151 H 11/11/19 19:52: POC Glucose 171 H 11/12/19 05:19: POC Glucose 147 H 11/12/19 05:50: Sodium 140, Potassium 4.6 D, Chloride 110 H, Carbon Dioxide 17 L D, Anion Gap 17.6 H, BUN 23 H, Creatinine 0.80, Estimated Creat Clear 98, Estimated GFR 94, Est GFR ( Amer) 114, Glucose 172 H, Calcium 8.2 L, Total Bilirubin 1.5 H, AST 52 D, ALT 14 D, Alkaline Phosphatase 32 L, Total Protein 7.1, Albumin 3.2 L, Globulin 3.9 H, Albumin/Globulin Ratio 0.8 L 11/12/19 10:11: POC Glucose 156 H 11/12/19 15:54: POC Glucose 192 H I & O for Last 24 hours: Intake & Output 11/10/19 11/11/19 11/12/19 11/13/19 11:59 11:59 11:59 11:59 Intake Total 1657 / 1657 2354 / 2354 640 / 640 485 / 485 Output Total 990 / 990 2845 / 2845 3042 / 3042 175 / 175 Balance 667 / 667 -491 / -491 -2402 / -2402 310 / 310 Weight 249 lb 4.956 oz 252 lb 6.4 oz 243 lb 242 lb 8.136 oz Microbiology Reports for the Last 24 Hours: Microbiology 11/09/19 21:41 Sputum - Expectorated Sputum Gram Stain - Final 11/09/19 21:41 Sputum - Expectorated Sputum Sputum Culture - Preliminary 11/11/19 16:30 Nasopharyngeal Coronavirus COVID-19 PCR - Final 11/09/19 13:30 Blood Blood Culture - Preliminary NO GROWTH AFTER 48 HOURS 11/09/19 13:30 Blood Blood Culture - Preliminary NO GROWTH AFTER 48 HOURS Narrative: Patient is pleasant, alert. Less agitation today Fairly good air entry, some minimal rhonchi bilaterally. Heart rate regular. Abdomen soft, no edema, neurologically intact as above except for his agitation. ENT exam otherwise clear. Assessment and Plan (1) Acute hypoxemic respiratory failure due to COVID-19 Current visit: Yes Status: Acute Category: Medical Code(s): U07.1 - COVID-19; J96.01 - Acute respiratory failure with hypoxia (2) Pneumonia due to COVID-19 virus Current visit: Yes Status: Acute Category: Medical Code(s): U07.1 - COVID-19; J12.89 - Other viral pneumonia (3) Obesity (BMI 30.0-34.9) Current visit: No Status: Acute Category: Medical Code(s): E66.9 - Obesity, unspecified (4) Type 2 diabetes mellitus Current visit: No Status: Acute Qualifiers: Diabetes mellitus intermediate insulin use: without intermediate use Diabetes mellitus complication status: with hyperglycemia Qualified Code(s): E11.65 - Type 2 diabetes mellitus with hyperglycemia Category: Medical Code(s): E11.9 - Type 2 diabetes mellitus without complications (5) Warfarin anticoagulation Current visit: No Status: Acute Category: Medical Code(s): Z79.01 - care home (current) use of anticoagulants (6) Atrial fibrillation Current visit: No Status: Chronic Qualifiers: Atrial fibrillation type: longstanding persistent Qualified Code(s): I48.11 - Longstanding persistent atrial fibrillation Category: Medical Code(s): I48.91 - Unspecified atrial fibrillation (7) CAD (coronary artery disease) Current visit: No Status: Chronic Qualifiers: Coronary Disease-Associated Artery/Lesion type: bypass graft [place] vs. transplanted heart: [place] heart Associated angina: without angina Qualified Code(s): I25.810 - Atherosclerosis of coronary artery bypass graft(s) without angina pectoris Category: Medical Code(s): I25.10 - Atherosclerotic heart disease of [place] coronary artery without angina pectoris (8) HLD (hyperlipidemia) Current visit: No Status: Chronic Qualifiers: Hyperlipidemia type: mixed hyperlipidemia Qualified Code(s): E78.2 - Mixed
--- NOTE | 2019-11-12 18:03 | PC.NURSE ---
Pt sat up in the chair for about 5 hours today. He tolerated it well.
--- NOTE | 2019-11-12 22:25 | PC.NURSE ---
Pt currently up to chair. o2 sats 91-92%. Pt sleeping comfortably at this time. Call light within reach
--- NOTE | 2019-11-12 23:08 | PC.NURSE ---
Pt transferred self to bed, pt desat to 81-83%. When this nurse walked into pt's room, pt stated I want back in the chair pt then transferred to chair with standby assist. Pt sats were between 82-84% when reclined back in chair. Pt repositioned upright, sats bounced up to 85%-88%. Will continue to monitor
[2019-11-13] VITALS (33 sets, daily range): BP systolic 80–149; BP diastolic 58–80; PULSE 50–88; RESP 20–38; TEMP 36.3–36.8; O2SAT 78–98; BMI 29.1
--- NOTE | 2019-11-13 03:03 | PC.NURSE ---
Pt has been restless t/o this entire shift. Pt has transferred from chair to bed multiple times t/o shift. Pt has remained A&Ox4, but did get confused regarding where he was in the hospital and was concerned that he was to be moved to another unit this morning. After reassurance, pt has calmed down and has remained oriented to where he was and the situation he was in. Pt has voiced concern over being placed on a ventilator to this nurse and RT this shift, stating I've heard if you go on a ventilator, you have less chance of survival. PRN ativan was administered per APR to help pt with anxiety. Pt's o2 sats have remained below 86% majority of the night. Pt has been repositioned, scheduled albuterol inhaler has been administered, and RT has been in patient's room multiple times. Pt's current setting on vapotherm is 40 LPM and 100% fio2. Pt sats have gone down to 79% at the lowest this shift but then goes back up and sustains between 83-86%. MD Perea has been notified no new orders received. Lung sounds have been diminished t/o this shift. Active bowel sounds in all 4 quads. Pt has urinated clear, stephanie colored urine via urinal this shift. Urine did have a strong odor. Bed alarm turned on for safety. Call light within reach. Will continue to monitor.
--- NOTE | 2019-11-13 05:14 | PC.NURSE ---
Addendum entered by Jacinta Black RN 11/13/19 05:26: Pt just repeated the same thing. o2 sat dropped to 67%, pt fought this nurse when reapplying vapotherm. Took approx 1 min for pt to recover up to 80%. PRN ativan was administered. Pt is very angry during these episodes. When educating the pt on importance of vapotherm, pt stated This is bullshit, get out of my room. At the end of this note, pt is currently at 83%. Original Note: Pt's o2 dropped to 72. This nurse entered room, pt had pulled off vapotherm. Pt tried to push this nurses arms away, stating her didnt want the vapotherm on, o2 sats then at 63%. Vapotherm reapplied and secured. Pt is now at 82%, it took him about one minute to reach this. Will continue to monitor.
[2019-11-13 06:28] LABS: Sodium 145 mmol/L (136-145)
[2019-11-13 06:30] LABS: Alanine Aminotransferase 12 U/L (12-78); Aspartate Amino Transferase 23 U/L (17-59); Blood Urea Nitrogen 18 mg/dl (9-20); Creatinine Clearance Estimated 97 mL/min (50-200); Estimated Glomerular Filt Rate 162 ml/min (>60); GFR (African American) 196 ML/MIN (>60)
[2019-11-13 06:31] LABS: Albumin/Globulin Ratio 0.8 (1.1-1.8); Alkaline Phosphatase 39 U/L (38-126); Anion Gap 9.5 mEq/L (5-15); Bilirubin,Total 0.8 mg/dl (0.2-1.3); Carbon Dioxide 15 mmol/L (22.0-30.0); Globulin 2.4 g/dL (1.3-3.2); Total Protein,Serum 4.4 g/dl (6.3-8.2)
[2019-11-13 06:54] LABS: Chloride 123 mmol/L (98-107); Glucose 123 mg/dl (74-100); Potassium 2.5 mmoL/L (3.5-5.1)
[2019-11-13 06:55] LABS: Calcium 5.5 mg/dl (8.4-10.2)
[2019-11-13 07:44] LABS: Magnesium 1.6 mg/dl (1.6-2.3)
--- NOTE | 2019-11-13 08:14 | XR_ITS ---
PROCEDURE: XR CHEST PORTABLE CLINICAL HISTORY: pt intubated Respiratory failure COMPARISON: CR XR CHEST PORTABLE from 11/09/2019 CR XR CHEST PORTABLE from 11/11/2019 CR XR CHEST PORTABLE from 11/12/2019 FINDINGS: 8:21 a.m.. Endotracheal tube tip is in good position 3 cm above the lady at the T5 level. Nasogastric tube tip is in the region of the body of the stomach. Cardiomegaly noted. Prior median sternotomy. Diffuse bilateral alveolar opacification right upper right lower and left lower lobe consistent with bilateral pneumonia which appears worse. IMPRESSION: Endotracheal tube and nasogastric tube in good position. Worsening bilateral pneumonia Dictated by: Vitor Barbosa MD 11/13/2019 09:00 Vitor Barbosa MD in [facility] 11/13/2019 09:00
--- NOTE | 2019-11-13 08:15 | PC.NURSE ---
Pt intubated @ 0815 with size 7.5 ET tube at 22 @lip. Bilateral breath sounds, Sputum obtained after intubation and sent to the lab. Adjusting vent settings at this time.
--- NOTE | 2019-11-13 08:35 | P.PCN_ITS ---
[facility] Procedure Note Procedure Note:: Consulted for intubation d/t worsening pneumonia/hypoxia. Chart reviewed. Discussed plan of care with pt and family member. Both verbalized understanding. Lidocaine 50 mg IV, Propofol 100 mg IV, Succinylcholine 120 mg IV. After LOC, DVL x1 with Burger 2 blade, Grade 1 view, 7.5 ETT placed and secured at 22 cm at the lip on the right side. Bilateral breath sounds and + ETCO2. Propofol gtt then started. Vent settings/CXR/ABG per and Dr. Torres.
--- NOTE | 2019-11-13 08:35 | PC.NURSE ---
Per Dr. Perea at 0806, start vent settings at: AC mode, TV 480, R 20, PEEP 8, 100% FiO2. Dr. Torres called at 0834 and stated to change vent settings to rate of 18 and TV 420. He also order for PRN hydromorphone to be d/c r/t allergy to morphine. Pt's daugther stated his allergy to morphine was hives and breaking out into a cold sweat. Dr. Torres also made aware of this.
--- NOTE | 2019-11-13 08:49 | HMH.ACPN2 ---
Internal Medicine - PN: Subj *Date: 11/13/19 *Time: 08:45 Interval history: Patient had respiratory distress on initial assessment this morning as well as overnight. Multiple episodes of confusion and delirium pulling off his nasal cannula oxygen. Oxygen saturations fluctuated between high 60s and mid 80s throughout the night. Respiratory rate in the 20-30 range consistently. Due to altered mentation, ICU delirium/encephalopathy, and inability to maintain goal saturations, decision was made to intubate at the start of morning rounds. Had significant electrolyte abnormalities on morning labs necessitating repletion. Remains afebrile. Exam Vital signs and Labs for Last 24 Hours: Temp Pulse Resp BP Pulse Ox 97.7 F 66 22 134/71 78 L 11/13/19 08:00 11/13/19 08:00 11/13/19 08:00 11/13/19 08:00 11/13/19 08:00 Laboratory Results - last 24 hr 11/12/19 10:11: POC Glucose 156 H 11/12/19 15:54: POC Glucose 192 H 11/13/19 05:50: Sodium 145, Potassium 2.5 L* D, Chloride 123 H, Carbon Dioxide 15 L, Anion Gap 9.5, BUN 18, Creatinine 0.50 L D, Estimated Creat Clear 97, Estimated GFR 162, Est GFR ( Amer) 196 D, Glucose 123 H D, Calcium 5.5 L D, Total Bilirubin 0.8, AST 23 D, ALT 12, Alkaline Phosphatase 39, Total Protein 4.4 L D, Albumin 2.0 L D, Globulin 2.4, Albumin/Globulin Ratio 0.8 L 11/13/19 05:50: Magnesium 1.6 I & O for Last 24 hours: Intake & Output 11/10/19 11/11/19 11/12/19 11/13/19 23:59 23:59 23:59 23:59 Intake Total 3193 / 3193 1198 / 1198 595 / 595 0 / 0 Output Total 1200 / 1200 4487 / 4487 825 / 975 400 / 400 Balance 1992 -3289 / -3289 -230 / -380 -400 / -400 Weight 113.085 kg 114.487 kg 110 kg 108.635 kg Microbiology Reports for the Last 24 Hours: Microbiology 11/09/19 21:41 Sputum - Expectorated Sputum Gram Stain - Final 11/09/19 21:41 Sputum - Expectorated Sputum Sputum Culture - Preliminary Gram Positive Cocci - Constitutional mild distress Comments: Sedated, intubated - *Routine HEENT Exam Head: Present: normocephalic Eye: Present: EOMI, PERRL ENT: Present: mucous membranes moist - *Routine Neck Exam Present: supple. Absent: lymphadenopathy Comments: Trachea midline, prominent Tim's apple - *Routine Respiratory Exam Present: CTA bilaterally - *Routine Cardiovascular Exam Present: RRR. Absent: murmur - *Routine Abdominal Exam Present: soft, normoactive bowel sounds. Absent: tenderness - *Routine Extremities Exam Present: edema. Absent: cyanosis, clubbing Comments: Trace bilaterally lower extremity - *Routine Skin Exam Present: warm. Absent: rash - *Routine Neurological Exam Sedated on exam, intermittent cough Assessment and Plan (1) Acute hypoxemic respiratory failure due to COVID-19 Current visit: Yes Status: Acute Category: Medical Code(s): U07.1 - COVID-19; J96.01 - Acute respiratory failure with hypoxia (2) Pneumonia due to COVID-19 virus Current visit: Yes Status: Acute Category: Medical Code(s): U07.1 - COVID-19; J12.89 - Other viral pneumonia (3) Obesity (BMI 30.0-34.9) Current visit: No Status: Acute Category: Medical Code(s): E66.9 - Obesity, unspecified (4) Type 2 diabetes mellitus Current visit: No Status: Acute Qualifiers: Diabetes mellitus alf insulin use: without alf use Diabetes mellitus complication status: with hyperglycemia Qualified Code(s): E11.65 - Type 2 diabetes mellitus with hyperglycemia Category: Medical Code(s): E11.9 - Type 2 diabetes mellitus without complications (5) Warfarin anticoagulation Current visit: No Status: Acute Category: Medical Code(s): Z79.01 - [facility] (current) use of anticoagulants (6) Atrial fibrillation Current visit: No Status: Chronic Qualifiers: Atrial fibrillation type: longstanding persistent Qualified Code(s): I48.11 - Longstanding persistent atrial fibri
--- NOTE | 2019-11-13 09:02 | HMH.ACPN ---
Internal Medicine - PN: Subj *Date: 11/13/19 *Time: 09:02 Exam Vital signs and Labs for Last 24 Hours: Temp Pulse Resp BP Pulse Ox 97.7 F 66 22 134/71 78 L 11/13/19 08:00 11/13/19 08:00 11/13/19 08:00 11/13/19 08:00 11/13/19 08:00 Laboratory Results - last 24 hr 11/12/19 10:11: POC Glucose 156 H 11/12/19 15:54: POC Glucose 192 H 11/13/19 05:50: Sodium 145, Potassium 2.5 L* D, Chloride 123 H, Carbon Dioxide 15 L, Anion Gap 9.5, BUN 18, Creatinine 0.50 L D, Estimated Creat Clear 97, Estimated GFR 162, Est GFR ( Amer) 196 D, Glucose 123 H D, Calcium 5.5 L D, Total Bilirubin 0.8, AST 23 D, ALT 12, Alkaline Phosphatase 39, Total Protein 4.4 L D, Albumin 2.0 L D, Globulin 2.4, Albumin/Globulin Ratio 0.8 L 11/13/19 05:50: Magnesium 1.6 I & O for Last 24 hours: Intake & Output 11/10/19 11/11/19 11/12/19 11/13/19 23:59 23:59 23:59 23:59 Intake Total 3193 / 3193 1198 / 1198 595 / 595 0 / 0 Output Total 1200 / 1200 4487 / 4487 825 / 975 400 / 400 Balance 1992 / 1992 -3289 / -3289 -230 / -380 -400 / -400 Weight 113.085 kg 114.487 kg 110 kg 108.635 kg Microbiology Reports for the Last 24 Hours: Microbiology 11/09/19 21:41 Sputum - Expectorated Sputum Gram Stain - Final 11/09/19 21:41 Sputum - Expectorated Sputum Sputum Culture - Preliminary Gram Positive Cocci Assessment and Plan (1) Acute hypoxemic respiratory failure due to COVID-19 Current visit: Yes Status: Acute Category: Medical Code(s): U07.1 - COVID-19; J96.01 - Acute respiratory failure with hypoxia (2) Pneumonia due to COVID-19 virus Current visit: Yes Status: Acute Category: Medical Code(s): U07.1 - COVID-19; J12.89 - Other viral pneumonia (3) Obesity (BMI 30.0-34.9) Current visit: No Status: Acute Category: Medical Code(s): E66.9 - Obesity, unspecified (4) Type 2 diabetes mellitus Current visit: No Status: Acute Qualifiers: Diabetes mellitus alf insulin use: without long goods drier use Diabetes mellitus complication status: with hyperglycemia Qualified Code(s): E11.65 - Type 2 diabetes mellitus with hyperglycemia Category: Medical Code(s): E11.9 - Type 2 diabetes mellitus without complications (5) Warfarin anticoagulation Current visit: No Status: Acute Category: Medical Code(s): Z79.01 - termite control representative (current) use of anticoagulants (6) Atrial fibrillation Current visit: No Status: Chronic Qualifiers: Atrial fibrillation type: longstanding persistent Qualified Code(s): I48.11 - Longstanding persistent atrial fibrillation Category: Medical Code(s): I48.91 - Unspecified atrial fibrillation (7) CAD (coronary artery disease) Current visit: No Status: Chronic Qualifiers: Coronary Disease-Associated Artery/Lesion type: bypass graft [place] vs. transplanted heart: [place] heart Associated angina: without angina Qualified Code(s): I25.810 - Atherosclerosis of coronary artery bypass graft(s) without angina pectoris Category: Medical Code(s): I25.10 - Atherosclerotic heart disease of [place] coronary artery without angina pectoris (8) HLD (hyperlipidemia) Current visit: No Status: Chronic Qualifiers: Hyperlipidemia type: mixed hyperlipidemia Qualified Code(s): E78.2 - Mixed hyperlipidemia Category: Medical Code(s): E78.5 - Hyperlipidemia, unspecified (9) HTN (hypertension) Current visit: No Status: Chronic Qualifiers: Hypertension type: essential hypertension Qualified Code(s): I10 - Essential (primary) hypertension Category: Medical Code(s): I10 - Essential (primary) hypertension (10) S/P CABG x 4 Current visit: No Status: Chronic Category: Surgical Code(s): Z95.1 - Presence of aortocoronary bypass graft (11) Sundowning Current visit: Yes Status: Acute Category: Medical Code(s): F05 - Delirium due to known physiological condition The patient's infection
--- NOTE | 2019-11-13 09:04 | ECG_ITS ---
APPROVED REPORT Exam: Resting ECG HR:69 bpm ECG Measurements Heart Rate 69 AXES QRSd 104 QRS -44 QT 438 T -50 QTc 469 <Conclusion> Atrial fibrillation Left axis deviation LAHB versus Old Inferior [place] Consider Old Lateral [place] Abnormal ECG Electronically signed by : Aníbal Monsivais, 11/13/2019 15:05:31
--- NOTE | 2019-11-13 09:15 | XR_ITS ---
PROCEDURE: XR CHEST PORTABLE CLINICAL HISTORY: pt intubated Respiratory failure, follow-up intubation COMPARISON: CR XR CHEST PORTABLE from 11/11/2019 CR XR CHEST PORTABLE from 11/12/2019 CR XR CHEST PORTABLE from 11/13/2019 FINDINGS: 9:25 a.m.. Endotracheal tube tip is 5.6 cm above the lady in good position. Nasogastric tube tip is in the region the body stomach. Cardiomegaly. Inspiration has improved on the current exam. The pneumonia in the right upper right lower left lower lobe appears improved likely related to the improvement in inspiration. IMPRESSION: Tubes and lines in good position. Bilateral pneumonia probably unchanged given difference in inspiration.. Dictated by: Vitor Barbosa MD 11/13/2019 10:36 Vitor Barbosa MD in [place] 11/13/2019 10:36
--- NOTE | 2019-11-13 10:05 | HMH.PULMPN ---
Internal Medicine - PN: Subj *Date: 11/13/19 *Time: 12:31 Interval history: Patient respiratory status declined overnight, worsening hypoxia and delirium , requiring intubation and mechanical ventilation this morning. Exam Vital signs and Labs for Last 24 Hours: Temp Pulse Resp BP Pulse Ox 97.7 F 66 22 134/71 78 L 11/13/19 08:00 11/13/19 08:00 11/13/19 08:00 11/13/19 08:00 11/13/19 08:00 Laboratory Results - last 24 hr 11/12/19 10:11: POC Glucose 156 H 11/12/19 15:54: POC Glucose 192 H 11/13/19 05:50: Sodium 145, Potassium 2.5 L* D, Chloride 123 H, Carbon Dioxide 15 L, Anion Gap 9.5, BUN 18, Creatinine 0.50 L D, Estimated Creat Clear 97, Estimated GFR 162, Est GFR ( Amer) 196 D, Glucose 123 H D, Calcium 5.5 L D, Total Bilirubin 0.8, AST 23 D, ALT 12, Alkaline Phosphatase 39, Total Protein 4.4 L D, Albumin 2.0 L D, Globulin 2.4, Albumin/Globulin Ratio 0.8 L 11/13/19 05:50: Magnesium 1.6 I & O for Last 24 hours: Intake & Output 11/10/19 11/11/19 11/12/19 11/13/19 23:59 23:59 23:59 23:59 Intake Total 3193 / 3193 1198 / 1198 595 / 595 0 / 0 Output Total 1200 / 1200 4487 / 4487 825 / 975 400 / 400 Balance 1992 / 1992 -3289 / -3289 -230 / -380 -400 / -400 Weight 249 lb 4.956 oz 252 lb 6.4 oz 242 lb 8.136 oz 239 lb 8 oz Microbiology Reports for the Last 24 Hours: Microbiology 11/09/19 21:41 Sputum - Expectorated Sputum Gram Stain - Final 11/09/19 21:41 Sputum - Expectorated Sputum Sputum Culture - Preliminary Gram Positive Cocci Radiology Reports for the Last 24 Hours: Chest x-ray showed possible worsening left lower lobe pulmonary infiltrate, this can be from rotated chest x-ray film. - *Routine HEENT Exam Head: Present: normocephalic, atraumatic - *Routine Neck Exam Present: supple. Absent: lymphadenopathy, thyromegaly - *Routine Respiratory Exam Present: patient mechanically ventilated, rhonchi - *Routine Cardiovascular Exam Present: Normal S1, Normal S2 - *Routine Abdominal Exam Present: soft, normoactive bowel sounds. Absent: tenderness, distended, rebound - *Routine Extremities Exam Absent: cyanosis, clubbing, edema Assessment and Plan (1) Acute hypoxemic respiratory failure due to COVID-19 Current visit: Yes Status: Acute Category: Medical Code(s): U07.1 - COVID-19; J96.01 - Acute respiratory failure with hypoxia (2) Pneumonia due to COVID-19 virus Current visit: Yes Status: Acute Category: Medical Code(s): U07.1 - COVID-19; J12.89 - Other viral pneumonia (3) Obesity (BMI 30.0-34.9) Current visit: No Status: Acute Category: Medical Code(s): E66.9 - Obesity, unspecified (4) Type 2 diabetes mellitus Current visit: No Status: Acute Qualifiers: Diabetes mellitus equipment operator intermodal yard insulin use: without equipment operator intermodal yard use Diabetes mellitus complication status: with hyperglycemia Qualified Code(s): E11.65 - Type 2 diabetes mellitus with hyperglycemia Category: Medical Code(s): E11.9 - Type 2 diabetes mellitus without complications (5) Warfarin anticoagulation Current visit: No Status: Acute Category: Medical Code(s): Z79.01 - intermodal customer service (current) use of anticoagulants (6) Atrial fibrillation Current visit: No Status: Chronic Qualifiers: Atrial fibrillation type: longstanding persistent Qualified Code(s): I48.11 - Longstanding persistent atrial fibrillation Category: Medical Code(s): I48.91 - Unspecified atrial fibrillation (7) CAD (coronary artery disease) Current visit: No Status: Chronic Qualifiers: Coronary Disease-Associated Artery/Lesion type: bypass graft [place] vs. transplanted heart: [place] heart Associated angina: without angina Qualified Code(s): I25.810 - Atherosclerosis of coronary artery bypass graft(s) without angina pectoris Category: Medical Code(s): I25.10 - Atherosclerotic heart disease of [place] coronary artery without angina pectoris
[2019-11-13 10:24] LABS: Microscopic, Urine URINE MICROSCOPIC (MICROSCOPIC)
--- NOTE | 2019-11-13 10:26 | PC.NURSE ---
relayed to general surgery office that there was a consult in for central line on 263
[2019-11-13 10:40] LABS: Appearance,Urine CLEAR (Clear); Bilirubin,Urine Negative (Negative); Blood, Urine Negative (Negative); Color,Urine YELLOW (Yellow); Glucose,Urine (UA) 1+ (Negative); Ketones,Urine 1+ (Negative); Leukocyte Esterase,Urine Negative (Negative); Nitrate,Urine Negative (Negative); Protein,Urine TRACE (Negative); Specific Gravity, Urine 1.025 (1.005-1.030); Urobilinogen,Urine 0.2 EU/dl (0.2)
[2019-11-13 11:06] LABS: RBC,Urine Occasional #/hpf (0-3); Squamous Epithelial Cell,Urine Occasional #/hpf (0-5)
--- NOTE | 2019-11-13 11:59 | PC.NURSE ---
2 rings taken off patient and placed in denture cup with lid on and placed in a biohazard bag in patients room. nurse hamilton cherry.
[2019-11-13 12:01] LABS: ABG Base Excess -2.8 mmol/L (-2.4-2.3); ABG HCO3 23.1 mmhg (22.0-26.0); ABG Oxygen Saturation 91 % (90-100); ABG PCO2 45.1 mmhg (35.0-45.0); ABG PH 7.33 mmol/L (7.35-7.45); ABG PO2 68.1 mmhg (80-100); ABG TCO2 24.5 mmhg (23-27)
[2019-11-13 12:02] LABS: Allen's Test Patient Unable; Oxygen 80% %; PEEP 8; Source Left Radial; Tidal Volume 440; Vent Rate 16
--- NOTE | 2019-11-13 12:07 | PC.NURSE ---
0730 patient sats noted to be 70-84% on the 100% vapotherm. after md round he stated he wanted patient intubated. family were notified and requested to be at bedside before intubation took place. family arrived about 0800 and was given proper ppe and allowed to see patient. anesthesia arrived at this time as well sedation given per anesthesia at 0812. tube placed at 0813 7.5 et tube 22 at the lip. started propafol at 0815 at 25mcg/g/min. 16 samoan og tube placed 65 at the lip. 16 samoan maddox placed at 0845. cre swab, rectal temp and manual bps done see interventions. new iv placed at 1115 after 8 trys. per md he wanted another iv if possible while awaiting for central line so that at least calcium could be given stat, with out stopping the sedation. propafol has been weaned down to 20mcg/g/min at this time and patient is tolerating dilaudid to eep cpot and rass score within limits. fios has also gone from 70% to 80% at 1145
--- NOTE | 2019-11-13 12:34 | PC.NURSE ---
dr. mas called at this time let respiratory no to increase peep to 10
--- NOTE | 2019-11-13 12:40 | PC.NURSE ---
ordered vent changes to Vt of 480, RR 20, Peep 10.
[2019-11-13 13:33] LABS: ABG Base Excess -4.2 mmol/L (-2.4-2.3); ABG HCO3 20.7 mmhg (22.0-26.0); ABG Oxygen Saturation 93 % (90-100); ABG PCO2 34.5 mmhg (35.0-45.0); ABG PO2 71.9 mmhg (80-100); ABG TCO2 21.7 mmhg (23-27)
[2019-11-13 13:34] LABS: Allen's Test Patient Unable; Oxygen 100% %; PEEP 8; Tidal Volume 480; Vent Rate 20
[2019-11-13 13:35] LABS: Source Left Radial
--- NOTE | 2019-11-13 14:46 | XR_ITS ---
PROCEDURE: XR CHEST PORTABLE CLINICAL HISTORY: central line placement COMPARISON: CR XR CHEST PORTABLE from 11/09/2019 CR XR CHEST PORTABLE from 11/12/2019 CR XR CHEST PORTABLE from 11/13/2019 CR XR CHEST PORTABLE from 11/13/2019 FINDINGS: Left subclavian central venous line has been placed. The tip is in the region the superior vena cava. Endotracheal tube and nasogastric tube remain in good position. There is cardiomegaly. There has been a prior median sternotomy. There is diffuse bilateral alveolar disease consistent with bilateral pneumonia. Skin fold artifact is present on the left in the left apex. No definite pneumothorax. IMPRESSION: Good position of subclavian central venous line. Endotracheal tube and nasogastric tube remain in place with diffuse bilateral alveolar disease Dictated by: Vitor Barbosa MD 11/13/2019 15:21 Vitor Barbosa MD in [place] 11/13/2019 15:21
--- NOTE | 2019-11-13 14:51 | PC.NURSE ---
spoke with daughter (Mary Bro) this morning about need for central line placement. explained procedure and risks and benefits of this procedure. she gave permission to proceed with central line placement. Dr. Palacio at bedside at 1400, time out 1430. patient tolerated procedure well. xray is at bedside now 1453.
--- NOTE | 2019-11-13 14:56 | P.PCN_ITS ---
[facility] Procedure Note Procedure Note:: Preoperative diagnosis: Need for central venous access Postop diagnosis: Same Procedure performed: Placement of 7 Romanian triple-lumen catheter and left subclavian vein Anesthesia: Lidocaine Consent was obtained from the patient's family earlier today. Patient was positioned in Trendelenburg position. Left neck and chest were prepped and draped in the standard surgical fashion. Local anesthetic was infiltrated inferior to the left clavicle. 18-gauge needle was inserted while aspirating and the left subclavian vein was cannulated. Guidewire was inserted. Small incision was made at the insertion site. Subcutaneous tissues were dilated. 7 Romanian triple-lumen catheter was inserted over the guidewire using Seldinger technique. Guidewire was removed. The ports were aspirated. Triple-lumen was then secured to the skin with silk suture. Markings was approximately an 18 cm. Clean dry sterile dressing was applied. Ports were flushed with saline. Chest x-ray pending at the time of this dictation.
--- NOTE | 2019-11-13 15:35 | PC.NURSE ---
md aware of bloody secretions.
--- NOTE | 2019-11-13 16:19 | DIET.NUTRFU ---
Pt intubated, recommend initiating continuous tube feedings of Jevity 1.2 at 20ml/hr, increase by 10ml/hr q 8 hours as tolerated to goal rate of 67ml/hr. This regimen provides 1859kcal, 86g protein, 61g fat, 263g carbohydrates, and 1251ml free water. Add water flushes of 60ml q 4 hours to meet additional fluid needs not currently provided by IV fluids/TF. Will monitor pt's tolerance, BG, fluid, and propofol to adjust as indicated.
[2019-11-13 16:54] LABS: POC Glucose,Bedside 177 (70-110)
[2019-11-13 16:54] LABS: POC Glucose,Bedside 136 (70-110)
--- NOTE | 2019-11-13 17:55 | PC.NURSE ---
tube feedings started at 1755 at 20 ml/hr. goal rate of 67ml/hr.
--- NOTE | 2019-11-13 18:05 | PC.NURSE ---
since patient has been intubated he has rested well. lungs have been clear. some blood tinged secreations suctioned from et tube. oral care q2 along with turns q2. propofol and dilaudid given to keep rass -2 - -1 and cpot less than 2. patient currently is resting well some movement with hands but has not been opening eyes to name. he did have some tension with turning. dilaudid was given last before placing central line. central line and ivs continue to flush and draw back well. vitals have been stable. will continue to monitor.
--- NOTE | 2019-11-13 18:27 | PC.NURSE ---
today patient has had calcium gluconate, magnesium, potassium chloride, lactated ringer at 125ml/hr propfol has titrated down to 15mcg/kg/min at 1500 and then down to 10mcg/kg/min at 1600.
[2019-11-13 19:06] LABS: POC Glucose,Bedside 188 (70-110)
[2019-11-13 20:24] LABS: POC Glucose,Bedside 153 (70-110)
[2019-11-13 20:37] LABS: Chloride 110 mmol/L (98-107); Potassium 4.2 mmoL/L (3.5-5.1); Sodium 141 mmol/L (136-145)
[2019-11-13 20:39] LABS: Blood Urea Nitrogen 23 mg/dl (9-20); Creatinine Clearance Estimated 97 mL/min (50-200); Estimated Glomerular Filt Rate 110 ml/min (>60); GFR (African American) 133 ML/MIN (>60)
[2019-11-13 20:40] LABS: Alanine Aminotransferase 13 U/L (12-78); Albumin Level 2.7 g/dl (3.5-5.0); Alkaline Phosphatase 54 U/L (38-126); Anion Gap 8.2 mEq/L (5-15); Aspartate Amino Transferase 20 U/L (17-59); Bilirubin,Total 0.7 mg/dl (0.2-1.3); Carbon Dioxide 27 mmol/L (22.0-30.0); Globulin 2.8 g/dL (1.3-3.2); Glucose 188 mg/dl (74-100); Magnesium 2.8 mg/dl (1.6-2.3); Total Protein,Serum 5.5 g/dl (6.3-8.2)
[2019-11-13 21:04] LABS: POC Glucose,Bedside 178 (70-110)
--- NOTE | 2019-11-13 21:35 | PC.NURSE ---
He continues in airborne and contact precautions. CRE screen pending. He awakens to name and is able to follow commands. He is able to move all extremities but is unable to turn himself in bed. Turned and repositioned q 2 hours. He continues to void per f/c. Urine is dark yellow, clear. Intubated and sedated to a RASS score -2. Current ventilator settings: AC mode, TV 480, PEEP 10, R 20, FiO2 @ 75%. Was previously at 80%FiO2 but was weaned by respiratory at 2003. 7.5 ETT is present on the left side at 22 @ the lip. He is receiving Jevity 1.2 @ 20mL/hr via OG which is at 65 on the left side. Residual checked for baseline at 1999 and 40mL of bile noted. He is receiving oral care with lip moisturizer q 2 hours along with ETT and oral suctioning. Scant amount of white, blood streaked secretions present when suctioned via ETT tube. Central line is present in left subclavian. All lines flushed and labs were drawn from blue port.
[2019-11-14] VITALS (36 sets, daily range): BP systolic 94–130; BP diastolic 53–82; PULSE 36–67; RESP 20–24; TEMP 36.1–36.7; O2SAT 92–98; BMI 29.7
--- NOTE | 2019-11-14 00:37 | PC.NURSE ---
Unable to increase his tube feed at 2200. Residual was 300. Drainage was bailey in color. Jevity 1.2 restarted at this time @ 20mL/hr. He continues to be able to follow commands. No secretions present during ETT suctioning at this time.
--- NOTE | 2019-11-14 05:00 | XR_ITS ---
PROCEDURE: XR CHEST PORTABLE CLINICAL HISTORY: Pt intubated. Respiratory failure COMPARISON: CR XR CHEST PORTABLE from 11/13/2019 CR XR CHEST PORTABLE from 11/13/2019 CR XR CHEST PORTABLE from 11/13/2019 FINDINGS: Endotracheal tube tip is in good position at the T4-T5 level. Left subclavian central venous line tip is in the region the SVC. Nasogastric tube tip is not adequately visualized. There is cardiomegaly with diffuse bilateral alveolar disease once again noted not significantly changed. There is a small left effusion No acute bony abnormalities. IMPRESSION: No change diffuse bilateral alveolar disease with cardiomegaly with good position of the endotracheal tube in left subclavian central venous line. NG tube tip not well delineated. Dictated by: Vitor Barbosa MD 11/14/2019 05:34 Vitor Barbosa MD in [place] 11/14/2019 05:34
[2019-11-14 05:48] LABS: Basophils # 0.1 K/mm3 (0-0.2); Basophils % 1.2 % (0.1-2.0); Eosinophils # 0.1 K/mm3 (0.0-0.4); Eosinophils % 0.6 % (0.1-12.0); Hematocrit 38.4 % (42.0-52.0); Hemoglobin 12.2 g/dL (14.1-18.0); Lymphocytes # 1.1 K/mm3 (0.7-4.5); Lymphocytes % 11.2 % (10-50); Mean Corpuscular HGB Conc 31.6 g/dL (31.8-35.4); Mean Corpuscular Hemoglobin 28.4 pg (27.0-31.2); Mean Corpuscular Volume 89.8 fl (80-94); Mean Platelet Volume 8.1 fl (7.4-10.4); Monocytes # 0.7 K/mm3 (0.1-1.0); Monocytes % 7.1 % (1.7-9.3); Neutrophils # 8.1 K/mm3 (1.8-7.8); Neutrophils % 79.9 % (37.0-80.0); Platelet Count 264 K/mm3 (142-424); Red Blood Count 4.28 M/mm3 (4.60-6.20); Red Cell Distribution Width 14.6 % (11.5-17.5); White Blood Count 10.2 K/mm3 (4.8-10.8)
[2019-11-14 05:53] LABS: Chloride 111 mmol/L (98-107); Potassium 3.9 mmoL/L (3.5-5.1); Sodium 142 mmol/L (136-145)
[2019-11-14 05:56] LABS: Anion Gap 7.9 mEq/L (5-15); Blood Urea Nitrogen 23 mg/dl (9-20); Calcium 7.8 mg/dl (8.4-10.2); Carbon Dioxide 27 mmol/L (22.0-30.0); Creatinine Clearance Estimated 98 mL/min (50-200); Estimated Glomerular Filt Rate 110 ml/min (>60); GFR (African American) 133 ML/MIN (>60); Glucose 163 mg/dl (74-100)
[2019-11-14 05:57] LABS: Magnesium 2.6 mg/dl (1.6-2.3)
[2019-11-14 06:03] LABS: POC Glucose,Bedside 172 (70-110)
[2019-11-14 06:52] LABS: ABG HCO3 24.5 mmhg (22.0-26.0); ABG Oxygen Saturation 94 % (90-100); ABG PCO2 44.7 mmhg (35.0-45.0); ABG PH 7.36 mmol/L (7.35-7.45); ABG PO2 76.7 mmhg (80-100); ABG TCO2 25.9 mmhg (23-27)
[2019-11-14 06:57] LABS: Allen's Test ACCEPTABLE; Oxygen 75% %; PEEP 10; Source L RADIAL; Tidal Volume 480; Vent Rate 20
--- NOTE | 2019-11-14 07:55 | HMH.ACPN2 ---
Internal Medicine - PN: Subj *Date: 11/14/19 *Time: 07:55 Interval history: Patient intubated yesterday. Events of yesterday noted. Patient is sedated, breathing comfortably with the ventilator. No pressure alarms noted. Tube feeds started. Exam Vital signs and Labs for Last 24 Hours: Temp Pulse Resp BP Pulse Ox 97.7 F 50 L 20 94/58 L 98 11/14/19 06:57 11/14/19 06:57 11/14/19 06:57 11/14/19 06:57 11/14/19 06:57 Laboratory Results - last 24 hr 11/12/19 20:07: POC Glucose 177 H 11/13/19 05:40: POC Glucose 153 H 11/13/19 08:30: Specimen Source Left radial, O2 % 100%, ABG pH 7.40, ABG pCO2 34.5 L, ABG pO2 71.9 L, ABG HCO3 20.7 L, ABG Total CO2 21.7 L, ABG O2 Saturation 93, ABG Base Excess -4.2 L, Vitor Test Patient unable, Vent Rate 20, Tidal Volume 480, PEEP 8 11/13/19 08:46: Urine Color Yellow, Urine Appearance Clear, Urine pH 6.0, Ur Specific [place] 1.025, Urine Protein Trace, Urine Glucose (UA) 1+, Urine Ketones 1+, Urine Blood Negative, Urine Nitrate Negative, Urine Bilirubin Negative, Urine Urobilinogen 0.2, Ur Leukocyte Esterase Negative, Urine RBC Occasional, Urine WBC 3-5, Ur Squamous Epith Cells Occasional 11/13/19 09:15: Specimen Source Left radial, O2 % 80%, ABG pH 7.33 L, ABG pCO2 45.1 H, ABG pO2 68.1 L, ABG HCO3 23.1, ABG Total CO2 24.5, ABG O2 Saturation 91, ABG Base Excess -2.8 L, Vitor Test Patient unable, Vent Rate 16, Tidal Volume 440, PEEP 8 11/13/19 11:51: POC Glucose 136 H 11/13/19 17:14: POC Glucose 188 H 11/13/19 20:19: POC Glucose 178 H 11/13/19 20:20: Sodium 141, Potassium 4.2 D, Chloride 110 H, Carbon Dioxide 27 D, Anion Gap 8.2, BUN 23 H D, Creatinine 0.70 D, Estimated Creat Clear 97, Estimated GFR 110, Est GFR ([facility] Amer) 133 D, Glucose 188 H D, Calcium 8.0 L D, Magnesium 2.8 H D, Total Bilirubin 0.7, AST 20, ALT 13, Alkaline Phosphatase 54, Total Protein 5.5 L, Albumin 2.7 L D, Globulin 2.8, Albumin/Globulin Ratio 1.0 L 11/14/19 05:15: WBC 10.2, RBC 4.28 L, Hgb 12.2 L, Hct 38.4 L, MCV 89.8, MCH 28.4, MCHC 31.6 L, RDW 14.6, Plt Count 264, MPV 8.1, Neut % (Auto) 79.9, Lymph % (Auto) 11.2, [place] % (Auto) 7.1, Eos % (Auto) 0.6, Baso % (Auto) 1.2, Neut # (Auto) 8.1 H, Lymph # (Auto) 1.1, [place] # (Auto) 0.7, Eos # (Auto) 0.1, Baso # (Auto) 0.1 11/14/19 05:15: Sodium 142, Potassium 3.9, Chloride 111 H, Carbon Dioxide 27, Anion Gap 7.9, BUN 23 H, Creatinine 0.70, Estimated Creat Clear 98, Estimated GFR 110, Est GFR ( Amer) 133, Glucose 163 H, Calcium 7.8 L 11/14/19 05:15: Magnesium 2.6 H 11/14/19 05:55: POC Glucose 172 H 11/14/19 06:00: Specimen Source L radial, O2 % 75%, ABG pH 7.36, ABG pCO2 44.7, ABG pO2 76.7 L, ABG HCO3 24.5, ABG Total CO2 25.9, ABG O2 Saturation 94, ABG Base Excess -1.0, Vitor Test Acceptable, Vent Rate 20, Tidal Volume 480, PEEP 10 I & O for Last 24 hours: Intake & Output 11/11/19 11/12/19 11/13/19 11/14/19 11:59 11:59 11:59 11:59 Intake Total 2354 / 2354 640 / 640 1867 / 1867 3676 / 3676 Output Total 2845 / 2845 3042 / 3042 855 / 855 940 / 940 Balance -491 / -491 -2402 / -2402 1012 / 1012 2736 / 2736 Weight 252 lb 6.4 oz 243 lb 239 lb 8 oz 244 lb 2 oz Microbiology Reports for the Last 24 Hours: Microbiology 11/13/19 08:30 Sputum - Endotracheal Tube Aspirate Gram Stain - Final 11/13/19 08:30 Sputum - Endotracheal Tube Aspirate Sputum Culture - Preliminary 11/09/19 21:41 Sputum - Expectorated Sputum Gram Stain - Final 11/09/19 21:41 Sputum - Expectorated Sputum Sputum Culture - Preliminary Staphylococcus aureus Narrative: Pulse rate in the 40s, regular. Blood pressure in the mid 90s systolically. Lungs are noted to have ventilatory rhonchi. Symmetric air entry. Heart rate regular as noted above. Abdomen soft, no peripheral edema, clubbing or rashes. Sedated on ventilator Assessment and Plan (1) Acute hypoxemic respiratory failure due to COVID-19 Current visit: Yes Status: Acute Category: Medic
--- NOTE | 2019-11-14 08:52 | PC.NURSE ---
with morning assessment patient is able to follow commands and answer yes or no questions with nod of his head. nodded no when asked if he had pain. turned supine. tube feedings put on hold at this time because he had greater than 60 of residual. noted to look like some bile mixed with tube feeds. did go ahead and give 120ml with meds. and turned tube feeds off. will recheck often.
--- NOTE | 2019-11-14 09:12 | PC.NURSE ---
Addendum entered by Ashtyn Garibay RN 11/14/19 09:33: increased propofol at that time to 25mcg/kg/min Original Note: dr. mas stated to dc lr at this time. and to try and not sip the dilaudid doses, to decrease the propofol instead. but goal of today is to have patient at deep sedation and not over breathing vent
--- NOTE | 2019-11-14 09:46 | PC.NURSE ---
patient heart rate has decreased 38-50 and bp has been on lower end so decreased the propafol back down to 20mcg/kg/min
--- NOTE | 2019-11-14 10:57 | PC.NURSE ---
patient sedated appropriately so sedation was weaned down to 15mcg/kg/min with last dose of dilaudid.
--- NOTE | 2019-11-14 11:05 | HMH.PULMPN ---
Internal Medicine - PN: Subj *Date: 11/14/19 *Time: 11:12 Interval history: Patient's respiratory status remained stable. Stable ventilator settings. Exam Vital signs and Labs for Last 24 Hours: Temp Pulse Resp BP Pulse Ox 97.6 F 44 L 22 99/59 L 94 L 11/14/19 10:00 11/14/19 10:00 11/14/19 10:00 11/14/19 10:00 11/14/19 10:00 Laboratory Results - last 24 hr 11/12/19 20:07: POC Glucose 177 H 11/13/19 05:40: POC Glucose 153 H 11/13/19 08:30: Specimen Source Left radial, O2 % 100%, ABG pH 7.40, ABG pCO2 34.5 L, ABG pO2 71.9 L, ABG HCO3 20.7 L, ABG Total CO2 21.7 L, ABG O2 Saturation 93, ABG Base Excess -4.2 L, Vitor Test Patient unable, Vent Rate 20, Tidal Volume 480, PEEP 8 11/13/19 08:46: Urine RBC Occasional, Urine WBC 3-5, Ur Squamous Epith Cells Occasional 11/13/19 09:15: Specimen Source Left radial, O2 % 80%, ABG pH 7.33 L, ABG pCO2 45.1 H, ABG pO2 68.1 L, ABG HCO3 23.1, ABG Total CO2 24.5, ABG O2 Saturation 91, ABG Base Excess -2.8 L, Vitor Test Patient unable, Vent Rate 16, Tidal Volume 440, PEEP 8 11/13/19 11:51: POC Glucose 136 H 11/13/19 17:14: POC Glucose 188 H 11/13/19 20:19: POC Glucose 178 H 11/13/19 20:20: Sodium 141, Potassium 4.2 D, Chloride 110 H, Carbon Dioxide 27 D, Anion Gap 8.2, BUN 23 H D, Creatinine 0.70 D, Estimated Creat Clear 97, Estimated GFR 110, Est GFR ( Amer) 133 D, Glucose 188 H D, Calcium 8.0 L D, Magnesium 2.8 H D, Total Bilirubin 0.7, AST 20, ALT 13, Alkaline Phosphatase 54, Total Protein 5.5 L, Albumin 2.7 L D, Globulin 2.8, Albumin/Globulin Ratio 1.0 L 11/14/19 05:15: WBC 10.2, RBC 4.28 L, Hgb 12.2 L, Hct 38.4 L, MCV 89.8, MCH 28.4, MCHC 31.6 L, RDW 14.6, Plt Count 264, MPV 8.1, Neut % (Auto) 79.9, Lymph % (Auto) 11.2, Hamilton % (Auto) 7.1, Eos % (Auto) 0.6, Baso % (Auto) 1.2, Neut # (Auto) 8.1 H, Lymph # (Auto) 1.1, Hamilton # (Auto) 0.7, Eos # (Auto) 0.1, Baso # (Auto) 0.1 11/14/19 05:15: Sodium 142, Potassium 3.9, Chloride 111 H, Carbon Dioxide 27, Anion Gap 7.9, BUN 23 H, Creatinine 0.70, Estimated Creat Clear 98, Estimated GFR 110, Est GFR ( Amer) 133, Glucose 163 H, Calcium 7.8 L 11/14/19 05:15: Magnesium 2.6 H 11/14/19 05:55: POC Glucose 172 H 11/14/19 06:00: Specimen Source L radial, O2 % 75%, ABG pH 7.36, ABG pCO2 44.7, ABG pO2 76.7 L, ABG HCO3 24.5, ABG Total CO2 25.9, ABG O2 Saturation 94, ABG Base Excess -1.0, Vitor Test Acceptable, Vent Rate 20, Tidal Volume 480, PEEP 10 I & O for Last 24 hours: Intake & Output 11/11/19 11/12/19 11/13/19 11/14/19 23:59 23:59 23:59 23:59 Intake Total 1198 / 1198 595 / 595 3915 / 4046 1849 / 1849 Output Total 4487 / 4487 825 / 975 875 / 905 597 / 597 Balance -3289 / -3289 -230 / -380 3040 / 3141 1252 / 1252 Weight 252 lb 6.4 oz 242 lb 8.136 oz 239 lb 8 oz 244 lb 2 oz Microbiology Reports for the Last 24 Hours: Microbiology 11/13/19 08:30 Sputum - Endotracheal Tube Aspirate Gram Stain - Final 11/13/19 08:30 Sputum - Endotracheal Tube Aspirate Sputum Culture - Preliminary 11/09/19 21:41 Sputum - Expectorated Sputum Gram Stain - Final 11/09/19 21:41 Sputum - Expectorated Sputum Sputum Culture - Preliminary Staphylococcus aureus - Constitutional mild distress - *Routine HEENT Exam Head: Present: normocephalic, atraumatic - *Routine Neck Exam Present: supple. Absent: lymphadenopathy - *Routine Respiratory Exam Present: patient mechanically ventilated, rhonchi - *Routine Cardiovascular Exam Present: Normal S1, Normal S2 - *Routine Abdominal Exam Present: soft, normoactive bowel sounds. Absent: distended, rebound - *Routine Extremities Exam Absent: cyanosis, clubbing, edema Assessment and Plan (1) Acute hypoxemic respiratory failure due to COVID-19 Current visit: Yes Status: Acute Category: Medical Code(s): U07.1 - COVID-19; J96.01 - Acute respiratory failure with hypoxia (2) Pneumonia due to COVID-19 virus Current visit: Yes Status: Acute Category: Medica
--- NOTE | 2019-11-14 11:31 | PC.NURSE ---
at this time decreased propofol down to 13mcg/kg/min with this dose of dilaudid. checked residual and there was none so restarted tube feedings at 20ml/hr to see how he tolerates
[2019-11-14 11:37] LABS: POC Glucose,Bedside 179 (70-110)
--- NOTE | 2019-11-14 11:44 | PC.NURSE ---
md aware of heart rate in the lower 40s dropping as low as 35
--- NOTE | 2019-11-14 14:23 | DIET.NUTRFU ---
TF paused and restarted today after gastric residuals present last night. Recommend: -slow and low advancement from 20ml/hr of 10ml/hr q 8 hours as tolerated til goal rate is reached (67ml/hr) -30-45 degree HOB positioning -decrease water flushes from 60ml to 30ml q 4 hours (adjustment made in order) BG moderate- ~170, Weight loss total of 6lb t/o stay (5d). Continuing to monitor.
--- NOTE | 2019-11-14 14:34 | PC.NURSE ---
called and spoke with dr antonio about patient heart rate starting to maintain 30s dropping as low as 27. stated to put in a cardiology consult and drop his propofol down
--- NOTE | 2019-11-14 14:35 | ECG_ITS ---
APPROVED REPORT Exam: Resting ECG HR:41 bpm ECG Measurements Heart Rate 41 AXES QRSd 102 QRS -37 QT 584 T -65 QTc 481 <Conclusion> Atrial fibrillation with slow ventricular response Left axis deviation Inferolateral ischemia vs Dig effect Abnormal ECG Electronically signed by : Aníbal Monsivais, 11/14/2019 16:36:54
--- NOTE | 2019-11-14 15:05 | HMH.CNCARD ---
History of Present Illness Consult date: 11/14/19 Requesting physician: Misha Plaza Consult reason: atrial fibrillation Chief complaint: bradycardia Additional Medical History:: 1. CAD, s/p CABG 2008 A. abnormal stress in 02/2018. pt asymptomatic so no LHC indicated. B. Echo 02/2018 shows: 1. Biatrial enlargement, normal left ventricular size, mild concentric left ventricular hypertrophy, visually estimated ejection fraction 55% with no regional wall motion abnormality. Diastolic parameters are inconclusive. 2. Mild mitral and tricuspid regurgitation3. No significant pericardial effusion noted. 2. HTN 3. HLD 4. DEBORAH A. CNI 02/2019 shows: Study suggests 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 Study suggests 20-49% stenosis of the left internal cartoid artery, unchanged from the 03/01/18 study. Antegrade flow seen bilateral vertebral arteries. 5. Atrial fibrillation, on coumain for a/c 6. PAD 7. AAA, a/p repair 2002 A. AAA u/s 07/2018 negative for AAA. History of present illness: This is a 78-year-old white gentleman who was admitted to the hospital and is currently in the intensive care unit being treated for COVID-19. The patient was subsequently intubated yesterday on November 12 due to the COVID-19. He is sedated on Dilaudid and propofol. The patient appears to be in no distress. He does arouse easily when you call his name and talk to him. He denies any chest pain or generalized pain anywhere. After answering most questions the patient then easily falls back asleep. He does have a history of coronary artery disease with coronary artery bypass grafting in 2008. He also has a history of chronic atrial fibrillation and he is on anticoagulation with Coumadin. The patient is typically on digoxin and carvedilol for rate control. However these medications were stopped approximately 2 to 3 days ago due to bradycardia. Today the patient's heart rate has been in in the low 40s to 50s and then dropping as low as the 30s. His lowest heart rate was documented at 27 bpm. The patient appears to be in no distress when his heart rate drops. When the patient is aroused and he is answering questions his heart rate is in the low 50s but as soon as he drifts back off to sleep his heart rate does drop down to the low 40s and while I was standing in the room his heart rate did get as low as 38 bpm. His blood pressure is stable and his oxygen saturations are stable on the ventilator as well. [facility] History I have reviewed the patient's past medical history: Yes Medical History: Reports:: Aneurysm, Atherosclerotic Heart Disease, Atrial Fibrillation, Cancer, Coronary Artery Disease, Diabetes Mellitus Type 2, Hyperlipidemia, Hypertension, Peripheral Artery Disease, Peripheral Vascular Disease Denies:: Diabetes Mellitus Type 1, Internal Pacemaker, MRSA, Seizures *Have you ever received a pneumonia vaccine?: Yes *Have you received a flu vaccine this season?: Yes Other Medical History: Reports: Arthritis, Cataracts Laterality Cases: Left: Total Hip Replacement, Bilateral: Tonsillectomy, Total Knee Replacement Other Surgeries: Yes: Appendectomy, CABG, Cancer Surgery, Cardiac Catheterization, Hernia Repair, Other (AAA repair). No: Pacemaker Amputation: No Fractures: No - *Social History Last grade of school completed: High school graduate Smoking Status: Former smoker Tobacco Type: cigarettes # Packs/Day (cigarettes): 1 #Yrs smoked (if former smoker): 30 Alcohol Intake: current Alcohol Intake Frequency:: holidays/special occasions only Substance Use Type: denies use *Occupational Status:: retired Housing: house Household Members: spouse *Travel in the last 8 weeks: None Family Hx:: Cancer, Diabetes, Hypertension Meds Home Medications Medication Instructions Recorded Confirmed Type Warfarin Sodium 5 mg PO DAILY 01/15/18 11/09/19 History Digoxin 125 mcg PO DAILY 08/20/19 11/09/19 History Zeigler-3
--- NOTE | 2019-11-14 15:09 | PC.NURSE ---
1400- patient residual was still 0 so increased patient tube feed to 30ml/hr. noted order for flushes to be 30 q4hr so will change on pump. when propafol for patient was turned down after heart rate drop patient woke up and was able to look at staff acknowledged questions/teaching with cardiology by shake of head. patient remained relaxed while awake. dilaudid has been given and propafol weaned to keep patient sedated (-3--4 per annangi) and cpot <2. patient while awake does nod yes to being comfortable and no to any pain. will continue to manage sedation and vital signs.
[2019-11-14 15:30] LABS: Troponin I 0.02 ng/ml (0.00-0.034)
[2019-11-14 15:49] LABS: Thyroid Stimulating Hormone 0.44 uIU/mL (0.465-4.68)
[2019-11-14 15:54] LABS: Free T4 (Free Thyroxine) 1.45 ng/dl (0.78-2.19)
[2019-11-14 16:36] LABS: POC Glucose,Bedside 178 (70-110)
--- NOTE | 2019-11-14 16:48 | PC.NURSE ---
Addendum entered by Ashtyn Garibay RN 11/14/19 17:01: lung sounds noted have scattered ronchi Original Note: patient residual checked before giving meds noted to be greater than 60. went ahead and stopped at this time for now. will recheck. propofol is at 10mcg/g/min. patient breathing about 20-21 a minute. vent setting is at 20. is about a -2--3 at this time. family has been updated on plan of care and consult with cardiology. patient remains aflutter/afib with heart rate in the 30-40s with rest. after procedure or suction heart rate goes up but returns back down.
--- NOTE | 2019-11-14 17:15 | PC.NURSE ---
patient propofol at 8mcg/kg/min. dr antonio rounded stating if patient heart rate was to go under 35 and sustain for greater than 30mins then to externally pace patient and increase sedation.
--- NOTE | 2019-11-14 18:21 | PC.NURSE ---
patient woke up with oral care at 1800. heart rate increased to the 50-60s while awake. breathing over vent at 24. increased sedation very briefly to 15mcg/kg/min weaned back down to 10mcg/kg/min. dilaudid given heart rate remains 50-60 at this time. will wean as appropriate. currently breathing 20/min
--- NOTE | 2019-11-14 18:42 | PC.NURSE ---
still about 60 of residual at this time. will not restart tube feedings
[2019-11-14 21:42] LABS: POC Glucose,Bedside 159 (70-110)
--- NOTE | 2019-11-14 21:56 | PC.NURSE ---
He is intubated and sedated to a RASS score -2. He is able to follow commands and move all extremities. He opens his eyes to name but does not maintain them open for >10 seconds. Vent settings: AC mode, TV 480, PEEP 10, R 20, FiO2 75%. He is being turned and repositioned q 2 hours. Oral care and lip moisturizer provided q 2 hours. He received a complete bed bath and linen change. Gag reflex present. No secretions via ETT. Scant amount of clear secretions suctioned orally. Capillary refill <3. Voiding per f/c. Catheter care provided. Urine is stephanie colored and clear. He has strong equal plum packer. He is receiving Jevity 1.2 @ 30mL/hr at this time. OG residual at 2000 was 20mL. OG and ETT are now on the right side. OG is at 63 @ ETT is at 22@ the lip. He continues in contact and airborne precautions.
[2019-11-15] VITALS (37 sets, daily range): BP systolic 90–134; BP diastolic 49–83; PULSE 53–77; RESP 20–22; TEMP 36.3–37.3; O2SAT 91–98; BMI 29.9
--- NOTE | 2019-11-15 01:31 | PC.NURSE ---
No change in vent setting. Continues to be sedated to a RASS -2. Pulse has decreased to 30s once but has mainly been in the 50s. 0200 residual for Jevity was 60mL but the color is more greenish brown versus the color of tube feeding.
--- NOTE | 2019-11-15 05:00 | XR_ITS ---
PROCEDURE: XR CHEST PORTABLE Referring Doctor: Chiki Perea Patient Age:78Y CLINICAL HISTORY: Pt intubated. Respiratory are failure COMPARISON: CR XR CHEST PORTABLE from 11/13/2019 CR XR CHEST PORTABLE from 11/13/2019 CR XR CHEST PORTABLE from 11/14/2019 FINDINGS: AP portable upright chest compared to previous days CXR studies. Endotracheal tube is in satisfactory position similar to yesterday's study with ET tube tip just at level of the head of the clavicles/just less than 7 cm superior to the lady.. T The left subclavian central venous catheter remains satisfactory position with tip in SVC. . The NG tube is difficult to visualize-I believe a could be seen passing just to the stomach on yesterday's study but cannot confirm such today a cannot be seen identified with certainty beyond the distal esophagus There is slightly better expansion of the lungs on today's study with subtle clearing towards lung bases bilaterally: bibasilar airspace disease again noted of left lung base more so than right but withImprovement towards left lung base most notable since yesterday. But still slightly basilar infiltrates more pronounced than 11/13/2019 CXR the left hemidiaphragm partially visible today and where previously it was totally obscured.. Minimal airspace disease right infrahilar region right base is similar if not slightly more evident than yesterday. Cardiomegaly with of perhaps mild increased pulmonary vascularity similar to previous studies but previous sternotomy. Monitor leads and other leads are seen projected over the left hemidiaphragm IMPRESSION: Bibasilar airspace disease. Very slight improvement since yesterday at the Left Lung Base. Stable to subtle progression of infiltrate right infrahilar region Right Lung Base ETT and left subclavian remains satisfactory position. I have difficulty in visualizing and confirming NG tube beyond the distal esophagus on today's study. The Dictated by: Juan C Kelly MD 11/15/2019 07:42 Juan C Kelly MD in [facility] 11/15/2019 07:42
[2019-11-15 08:05] LABS: Basophils # 0.1 K/mm3 (0-0.2); Basophils % 0.9 % (0.1-2.0); Eosinophils % 0.2 % (0.1-12.0); Hematocrit 37.1 % (42.0-52.0); Hemoglobin 12.4 g/dL (14.1-18.0); Lymphocytes # 1.2 K/mm3 (0.7-4.5); Lymphocytes % 11.5 % (10-50); Mean Corpuscular HGB Conc 33.5 g/dL (31.8-35.4); Mean Corpuscular Hemoglobin 29.8 pg (27.0-31.2); Mean Corpuscular Volume 88.9 fl (80-94); Mean Platelet Volume 9.5 fl (7.4-10.4); Monocytes # 0.9 K/mm3 (0.1-1.0); Monocytes % 8.3 % (1.7-9.3); Neutrophils # 8.3 K/mm3 (1.8-7.8); Neutrophils % 79.1 % (37.0-80.0); Platelet Count 302 K/mm3 (142-424); Red Blood Count 4.18 M/mm3 (4.60-6.20); Red Cell Distribution Width 14.7 % (11.5-17.5); White Blood Count 10.5 K/mm3 (4.8-10.8)
[2019-11-15 08:09] LABS: Anion Gap 7.3 mEq/L (5-15); Blood Urea Nitrogen 27 mg/dl (9-20); Calcium 7.7 mg/dl (8.4-10.2); Carbon Dioxide 28 mmol/L (22.0-30.0); Chloride 112 mmol/L (98-107); Creatinine Clearance Estimated 99 mL/min (50-200); Estimated Glomerular Filt Rate 94 ml/min (>60); GFR (African American) 114 ML/MIN (>60); Glucose 133 mg/dl (74-100); Potassium 4.3 mmoL/L (3.5-5.1); Sodium 143 mmol/L (136-145)
--- NOTE | 2019-11-15 08:57 | PC.NURSE ---
Pt nods head yes and no to questions. Gives me a thumbs up. Denies pain. Is overbreathing the vent by 2. Vent rate set at 20. Propofol gtt increased to 12mcg/kg/min (7.8mL/hr). Gastric residual @ 0800 was 60mL (green bile).
[2019-11-15 09:08] LABS: ABG Base Excess -0.5 mmol/L (-2.4-2.3); ABG HCO3 25.3 mmhg (22.0-26.0); ABG Oxygen Saturation 98 % (90-100); ABG PCO2 48.5 mmhg (35.0-45.0); ABG PH 7.34 mmol/L (7.35-7.45); ABG PO2 114.5 mmhg (80-100); ABG TCO2 26.8 mmhg (23-27); Allen's Test ACCEPTABLE; Oxygen 75% %; PEEP 10; Source L RADIAL; Tidal Volume 480; Vent Rate 20
--- NOTE | 2019-11-15 09:26 | PC.NURSE ---
Barbara Gonzalez APRN for cardiology called and reports that cardiology is signing off on pt. If pt's HR drops to the 40s again, to call cardiology and they will pick him back up. Verbalized understanding.
--- NOTE | 2019-11-15 09:31 | PC.NURSE ---
Dr. Torres @ [facility]. FiO2 decreased to 65% and rate increased to 22. Dr. Torres explained to titrate Propofol so that pt is not overbreathing the vent. Dilaudid is to be given Q1hr scheduled. Pt is comfortable @ this time. Propofol gtt @ 12mcg/kg/min (7.8mL/hr).
--- NOTE | 2019-11-15 10:18 | HMH.PULMPN ---
Internal Medicine - PN: Subj *Date: 11/15/19 *Time: 10:18 Interval history: No acute events overnight. Patient respiratory status and ventilator settings remained stable overnight Exam Vital signs and Labs for Last 24 Hours: Temp Pulse Resp BP Pulse Ox 98.0 F 60 22 91/60 L 97 11/15/19 10:00 11/15/19 10:00 11/15/19 10:00 11/15/19 10:00 11/15/19 10:00 Laboratory Results - last 24 hr 11/14/19 11:18: POC Glucose 179 H 11/14/19 15:00: Troponin I 0.02, TSH 0.44 L 11/14/19 15:00: Free T4 1.45 11/14/19 16:17: POC Glucose 178 H 11/14/19 21:35: POC Glucose 159 H 11/15/19 05:20: Sodium 143, Potassium 4.3, Chloride 112 H, Carbon Dioxide 28, Anion Gap 7.3, BUN 27 H, Creatinine 0.80, Estimated Creat Clear 99, Estimated GFR 94, Est GFR ( Amer) 114, Glucose 133 H, Calcium 7.7 L 11/15/19 05:20: WBC 10.5, RBC 4.18 L, Hgb 12.4 L, Hct 37.1 L, MCV 88.9, MCH 29.8, MCHC 33.5, RDW 14.7, Plt Count 302, MPV 9.5, Neut % (Auto) 79.1, Lymph % (Auto) 11.5, Gates % (Auto) 8.3, Eos % (Auto) 0.2, Baso % (Auto) 0.9, Neut # (Auto) 8.3 H, Lymph # (Auto) 1.2, Gates # (Auto) 0.9, Eos # (Auto) 0.0, Baso # (Auto) 0.1 11/15/19 06:00: Specimen Source L radial, O2 % 75%, ABG pH 7.34 L, ABG pCO2 48.5 H, ABG pO2 114.5 H, ABG HCO3 25.3, ABG Total CO2 26.8, ABG O2 Saturation 98, ABG Base Excess -0.5, Vitor Test Acceptable, Vent Rate 20, Tidal Volume 480, PEEP 10 I & O for Last 24 hours: Intake & Output 11/12/19 11/13/19 11/14/19 11/15/19 23:59 23:59 23:59 23:59 Intake Total 595 / 595 3915 / 4046 2928 / 2934 541 / 541 Output Total 825 / 975 875 / 905 1130 / 1170 610 / 610 Balance -230 / -380 3040 / 3141 1798 / 1764 -69 / -69 Weight 242 lb 8.136 oz 239 lb 8 oz 244 lb 2 oz 246 lb 8 oz Microbiology Reports for the Last 24 Hours: Microbiology 11/13/19 08:30 Sputum - Endotracheal Tube Aspirate Gram Stain - Final 11/13/19 08:30 Sputum - Endotracheal Tube Aspirate Sputum Culture - Preliminary 11/09/19 13:30 Blood Blood Culture - Final NO GROWTH AFTER 5 DAYS 11/09/19 13:30 Blood Blood Culture - Final NO GROWTH AFTER 5 DAYS 11/09/19 21:41 Sputum - Expectorated Sputum Gram Stain - Final 11/09/19 21:41 Sputum - Expectorated Sputum Sputum Culture - Preliminary Staphylococcus aureus Radiology Reports for the Last 24 Hours: Bilateral diffuse pulmonary infiltrates again noted, slightly worsened likely from volume overload. ET tube in good position. - *Routine HEENT Exam Head: Present: normocephalic, atraumatic. Absent: cushingoid faces - *Routine Neck Exam Present: supple. Absent: lymphadenopathy - *Routine Respiratory Exam Present: patient mechanically ventilated, rhonchi - *Routine Cardiovascular Exam Present: Normal S1, Normal S2 - *Routine Abdominal Exam Present: soft, normoactive bowel sounds. Absent: tenderness, distended - *Routine Extremities Exam Absent: cyanosis, clubbing, edema Assessment and Plan (1) Bradycardia Status: Acute Category: Medical Code(s): R00.1 - Bradycardia, unspecified (2) Acute hypoxemic respiratory failure due to COVID-19 Status: Acute Category: Medical Code(s): U07.1 - COVID-19; J96.01 - Acute respiratory failure with hypoxia (3) Pneumonia due to COVID-19 virus Status: Acute Category: Medical Code(s): U07.1 - COVID-19; J12.89 - Other viral pneumonia (4) Obesity (BMI 30.0-34.9) Status: Acute Category: Medical Code(s): E66.9 - Obesity, unspecified (5) Type 2 diabetes mellitus Status: Acute Qualifiers: Diabetes mellitus fdc insulin use: without intermediate teacher use Diabetes mellitus complication status: with hyperglycemia Qualified Code(s): E11.65 - Type 2 diabetes mellitus with hyperglycemia Category: Medical Code(s): E11.9 - Type 2 diabetes mellitus without complications (6) Warfarin anticoagulation Status: Acute Category: Medical Code(s): Z79.01 -
--- NOTE | 2019-11-15 10:26 | PC.NURSE ---
Pt attempting to touch ET tube. Propofol gtt increased to 15mcg/kg/min (9.7mL/hr). Pt is able to follow commands. Dr. Torres wants pt more sedated.
--- NOTE | 2019-11-15 11:11 | PC.NURSE ---
ET tube moved to midline by RT
[2019-11-15 11:13] LABS: POC Glucose,Bedside 165 (70-110)
--- NOTE | 2019-11-15 13:02 | PC.NURSE ---
Gastric residual @ 1200 was 60mL. Tubefeeds continue. RASS score -3. Propofol gtt @ 15mcg/kg/min. Pt is able to nod head when asked questions. Is comfortable.
--- NOTE | 2019-11-15 13:38 | PC.NURSE ---
Butterfly dressing applied to buttock area for protection. No skin breakdown noted on buttock area @ this time.
--- NOTE | 2019-11-15 16:17 | HMH.ACPN2 ---
Internal Medicine - PN: Subj *Date: 11/15/19 *Time: 16:17 Interval history: Patient is remained stable over the past 24 hours on the ventilator, no significant changes in oxygenation or ventilation. Patient has significant bradycardia through the night last night while sleeping. Responded well to tactile stimuli with increased heart rate. Beta-blockers and digoxin were held by nursing staff. Exam Vital signs and Labs for Last 24 Hours: Temp Pulse Resp BP Pulse Ox 98.1 F 56 L 22 90/54 L 96 11/15/19 16:00 11/15/19 16:00 11/15/19 16:00 11/15/19 16:00 11/15/19 16:00 Laboratory Results - last 24 hr 11/14/19 16:17: POC Glucose 178 H 11/14/19 21:35: POC Glucose 159 H 11/15/19 05:20: Sodium 143, Potassium 4.3, Chloride 112 H, Carbon Dioxide 28, Anion Gap 7.3, BUN 27 H, Creatinine 0.80, Estimated Creat Clear 99, Estimated GFR 94, Est GFR ( Amer) 114, Glucose 133 H, Calcium 7.7 L 11/15/19 05:20: WBC 10.5, RBC 4.18 L, Hgb 12.4 L, Hct 37.1 L, MCV 88.9, MCH 29.8, MCHC 33.5, RDW 14.7, Plt Count 302, MPV 9.5, Neut % (Auto) 79.1, Lymph % (Auto) 11.5, Alcorn % (Auto) 8.3, Eos % (Auto) 0.2, Baso % (Auto) 0.9, Neut # (Auto) 8.3 H, Lymph # (Auto) 1.2, Alcorn # (Auto) 0.9, Eos # (Auto) 0.0, Baso # (Auto) 0.1 11/15/19 06:00: Specimen Source L radial, O2 % 75%, ABG pH 7.34 L, ABG pCO2 48.5 H, ABG pO2 114.5 H, ABG HCO3 25.3, ABG Total CO2 26.8, ABG O2 Saturation 98, ABG Base Excess -0.5, Vitor Test Acceptable, Vent Rate 20, Tidal Volume 480, PEEP 10 11/15/19 10:56: POC Glucose 165 H I & O for Last 24 hours: Intake & Output 11/13/19 11/14/19 11/15/19 11/16/19 11:59 11:59 11:59 11:59 Intake Total 1867 / 1867 4548 / 4579 1560 / 1606 530 / 530 Output Total 855 / 855 1089 / 1116 1141 / 1516 1235 / 1235 Balance 1012 / 1012 3459 / 3463 419 / 90 -705 / -705 Weight 239 lb 8 oz 244 lb 2 oz 246 lb 8 oz Microbiology Reports for the Last 24 Hours: Microbiology 11/13/19 08:45 Anus CRE Surveillance Culture - Final Negative 11/13/19 08:30 Sputum - Endotracheal Tube Aspirate Gram Stain - Final 11/13/19 08:30 Sputum - Endotracheal Tube Aspirate Sputum Culture - Preliminary 11/09/19 13:30 Blood Blood Culture - Final NO GROWTH AFTER 5 DAYS 11/09/19 13:30 Blood Blood Culture - Final NO GROWTH AFTER 5 DAYS Narrative: On ventilator, arouses fairly easily. Lungs have rhonchorous air movement and ventilator sounds. Heart rate bradycardic but regular. Perfusion adequate. NG tube and ET tube in good position. Abdomen soft and nontender. Neurologic exam sedated as noted above. ENT exam clear Assessment and Plan (1) Bradycardia Status: Acute Category: Medical Code(s): R00.1 - Bradycardia, unspecified (2) Acute hypoxemic respiratory failure due to COVID-19 Status: Acute Category: Medical Code(s): U07.1 - COVID-19; J96.01 - Acute respiratory failure with hypoxia (3) Pneumonia due to COVID-19 virus Status: Acute Category: Medical Code(s): U07.1 - COVID-19; J12.89 - Other viral pneumonia (4) Obesity (BMI 30.0-34.9) Status: Acute Category: Medical Code(s): E66.9 - Obesity, unspecified (5) Type 2 diabetes mellitus Status: Acute Qualifiers: Diabetes mellitus shelter insulin use: without terminal gauger supervisor use Diabetes mellitus complication status: with hyperglycemia Qualified Code(s): E11.65 - Type 2 diabetes mellitus with hyperglycemia Category: Medical Code(s): E11.9 - Type 2 diabetes mellitus without complications (6) Warfarin anticoagulation Status: Acute Category: Medical Code(s): Z79.01 - terminal gauger supervisor (current) use of anticoagulants (7) Atrial fibrillation Status: Chronic Qualifiers: Atrial fibrillation type: longstanding persistent Qualified Code(s): I48.11 - Longstanding persistent atrial fibrillation Category: Medical Code(s): I48.91 - Unspecified atrial fibrilla
--- NOTE | 2019-11-15 17:16 | PC.NURSE ---
Gastric residual @ 1600 was 60mL. Tubefeeds continue. RASS score -3. Propofol gtt continues @ 15mcg/kg/min. Pt is able to nod head when asked questions. Does not open eyes. Is comfortable.
--- NOTE | 2019-11-15 17:17 | PC.NURSE ---
Left SC TLDL dressing changed.
[2019-11-15 17:19] LABS: POC Glucose,Bedside 147 (70-110)
--- NOTE | 2019-11-15 21:00 | PC.NURSE ---
Addendum entered by Lulu Melgoza RN 11/15/19 21:10: tube feeding increased to 40ml/hr. Original Note: 1929 initial assessment received patient from off going shift. assessment completed, chart reviewed. diprivan infusing at 15 mcq/kg/min. patient response to noxious stimuli. peak airway pressure 42, patient suctioned peak airway pressure decreased to 37. patient breathing at set rate of 22 on ventilater tv 519.fio2 65% with sats of 98%. breath sounds clear and diminished throughout all serna, more so posteriorly. 7.5 ett at 22 at the lip in middle. ogt auscultated for placement, and residual checked. 50 ml of gastric content obtained. tube feeding increased to 540ml/hr. bowel sounds hypoactive. maddox patent and draining clear light yellow urine.
--- NOTE | 2019-11-15 21:07 | PC.NURSE ---
patient repositioned and placed at 45 degrees on right to promote mobilization of secretions. hob 35 degrees, patient tolerated procedure without incident. o2 sats have remained 95%, peak airway pressures 31 since repositioning patient.
--- NOTE | 2019-11-15 22:09 | PC.NURSE ---
2114 fio2 decreased to 60%, sats have been maintaining 95 percent since decrease.
--- NOTE | 2019-11-15 23:02 | PC.NURSE ---
patient repositioned to left side 45 degree angle to promote secretion mobilization. hob at 35 degrees, tolerated without incident. sats returned to 98% with turn. fio2 at 60%, peak airway pressure 35
[2019-11-16] VITALS (42 sets, daily range): BP systolic 99–135; BP diastolic 47–80; PULSE 57–87; RESP 22; TEMP 36.5–37.4; O2SAT 90–100; BMI 30.2
--- NOTE | 2019-11-16 01:00 | PC.NURSE ---
0015 fio2 decreased to 55% sats have maintained 97 percent since titration.
--- NOTE | 2019-11-16 01:17 | PC.NURSE ---
patient repositioned to right side at a 45 degree angle, hob up 30 degrees. patient tolerated without incident, sats remain 94-95% on 55 percent fio2.
--- NOTE | 2019-11-16 02:42 | PC.NURSE ---
0200 patient bathed and repositioned without incident. patient currently supine position with hob 40 degrees. o2 sats have maintained 92-95% on 55 percent fio2.
--- NOTE | 2019-11-16 05:54 | PC.NURSE ---
patient rass score at -1 to -2. patient follows commands. diprivan increased to 20 mcq/kg//min. patient has been able to tolerate significant turning this shift without incident. patients sats have maintained greater than 92%. breath sounds remain diminished throughout all serna, left lung significantly more diminished than right. fio2 at 55 % tube feeding infusing at 40 ml/hr. maddox to gravity clear yellow urine.
[2019-11-16 06:43] LABS: ABG Base Excess -0.6 mmol/L (-2.4-2.3); ABG HCO3 24.7 mmhg (22.0-26.0); ABG Oxygen Saturation 97 % (90-100); ABG PCO2 43.9 mmhg (35.0-45.0); ABG PH 7.37 mmol/L (7.35-7.45); ABG PO2 88.3 mmhg (80-100)
[2019-11-16 06:45] LABS: PEEP 10; Tidal Volume 480; Vent Rate 22
[2019-11-16 06:46] LABS: Source R RADIAL
--- NOTE | 2019-11-16 08:04 | PC.NURSE ---
Addendum entered by Ayleen Kelly RN 11/16/19 10:24: Gastric residual 90mL (bile color). Tubefeeds @ 40mL/hr. Original Note: 0800 assessment. Propofol @ 20mcg/kg/min. Pt does not respond to my voice or my touch. He will localize to pain. Propofol decreased to 15mcg/kg/min. RASS currently a -4. Per Dr. Torres yesterday, RASS score is to be -3 to -4. Sats are high 90s on 55% FiO2. He is not over-breathing the vent. Rate is set @ 22. ET suctioned. Scant amount of thin yellow suctioned.
--- NOTE | 2019-11-16 08:10 | PC.NURSE ---
Dr. Plaza @ [facility] rounding. He encouraged to wean FiO2 to 45% throughout the day.
--- NOTE | 2019-11-16 08:20 | PC.NURSE ---
RT @ [facility]. She decreased FiO2 to 45% per Dr. Plaza.
--- NOTE | 2019-11-16 08:30 | HMH.ACPN2 ---
Internal Medicine - PN: Subj *Date: 11/16/19 *Time: 08:30 Interval history: Patient has been resting comfortably on the ventilator. No significant pressure alarms. FiO2 has been decreased down to 55%. Blood gas this morning reviewed. Exam Vital signs and Labs for Last 24 Hours: Temp Pulse Resp BP Pulse Ox 99.1 F 67 22 104/66 L 95 11/15/19 23:58 11/16/19 06:52 11/16/19 06:52 11/16/19 06:52 11/16/19 08:19 Laboratory Results - last 24 hr 11/15/19 06:00: Specimen Source L radial, O2 % 75%, ABG pH 7.34 L, ABG pCO2 48.5 H, ABG pO2 114.5 H, ABG HCO3 25.3, ABG Total CO2 26.8, ABG O2 Saturation 98, ABG Base Excess -0.5, Vitor Test Acceptable, Vent Rate 20, Tidal Volume 480, PEEP 10 11/15/19 10:56: POC Glucose 165 H 11/15/19 17:06: POC Glucose 147 H 11/16/19 06:41: Specimen Source R radial, O2 % 55%, ABG pH 7.37, ABG pCO2 43.9, ABG pO2 88.3, ABG HCO3 24.7, ABG Total CO2 26.0, ABG O2 Saturation 97, ABG Base Excess -0.6, Vent Rate 22, Tidal Volume 480, PEEP 10 I & O for Last 24 hours: Intake & Output 11/13/19 11/14/19 11/15/19 11/16/19 11:59 11:59 11:59 11:59 Intake Total 1867 / 1867 4548 / 4579 1560 / 1606 1802 / 1802 Output Total 855 / 855 1089 / 1116 1141 / 1516 2405 / 2405 Balance 1012 / 1012 3459 / 3463 419 / 90 -603 / -603 Weight 239 lb 8 oz 244 lb 2 oz 246 lb 8 oz 248 lb 7.375 oz Microbiology Reports for the Last 24 Hours: Microbiology 11/13/19 08:45 Anus CRE Surveillance Culture - Final Negative 11/13/19 08:30 Sputum - Endotracheal Tube Aspirate Gram Stain - Final 11/13/19 08:30 Sputum - Endotracheal Tube Aspirate Sputum Culture - Preliminary Narrative: Patient is sedated, intubated. OG tube in good position. Lungs have symmetric air entry. Breathing fairly easily with minimal peak inspiratory pressures. Abdomen soft, heart rate regular. No distal perfusion deficits. Patient intubated and sedated, neurologic exam compromised Assessment and Plan (1) Bradycardia Status: Acute Category: Medical Code(s): R00.1 - Bradycardia, unspecified (2) Acute hypoxemic respiratory failure due to COVID-19 Status: Acute Category: Medical Code(s): U07.1 - COVID-19; J96.01 - Acute respiratory failure with hypoxia (3) Pneumonia due to COVID-19 virus Status: Acute Category: Medical Code(s): U07.1 - COVID-19; J12.89 - Other viral pneumonia (4) Obesity (BMI 30.0-34.9) Status: Acute Category: Medical Code(s): E66.9 - Obesity, unspecified (5) Type 2 diabetes mellitus Status: Acute Qualifiers: Diabetes mellitus care home insulin use: without intermediate manager use Diabetes mellitus complication status: with hyperglycemia Qualified Code(s): E11.65 - Type 2 diabetes mellitus with hyperglycemia Category: Medical Code(s): E11.9 - Type 2 diabetes mellitus without complications (6) Warfarin anticoagulation Status: Acute Category: Medical Code(s): Z79.01 - retirement (current) use of anticoagulants (7) Atrial fibrillation Status: Chronic Qualifiers: Atrial fibrillation type: longstanding persistent Qualified Code(s): I48.11 - Longstanding persistent atrial fibrillation Category: Medical Code(s): I48.91 - Unspecified atrial fibrillation (8) CAD (coronary artery disease) Status: Chronic Qualifiers: Coronary Disease-Associated Artery/Lesion type: bypass graft [place] vs. transplanted heart: [place] heart Associated angina: without angina Qualified Code(s): I25.810 - Atherosclerosis of coronary artery bypass graft(s) without angina pectoris Category: Medical Code(s): I25.10 - Atherosclerotic heart disease of [place] coronary artery without angina pectoris (9) HLD (hyperlipidemia) Status: Chronic Qualifiers: Hyperlipidemia type: mixed hyperlipidemia Qualified Code(s): E78.2 - Mixed hyperlipidemia Category: Medical Code(s): E78.5 - Hyperlipidemia, unspecified (10) HTN (hypertensi
--- NOTE | 2019-11-16 08:32 | XR_ITS ---
PROCEDURE: XR CHEST PORTABLE CLINICAL HISTORY: Hypoxic resp failure COMPARISON: CR XR CHEST PORTABLE from 11/13/2019 CR XR CHEST PORTABLE from 11/14/2019 CR XR CHEST PORTABLE from 11/15/2019 FINDINGS: There is stable mild to moderate generalized cardiomegaly. This is a somewhat poor inspiration however there is no pulmonary congestion. There has been interval partial clearing of the bilateral basilar infiltrates more prominent right side than left where minimal infiltrate remains. The endotracheal tube remains in satisfactory position well above the lady. There is no change in position of the left-sided subclavian central line. No acute bony abnormalities. IMPRESSION: Interval pole improvement from the previous studies with almost complete clearing of the infiltrate at the right base, minimal ill-defined infiltrate Rodriguez at the left base and left costophrenic angle. Dictated by: Dr. Avery Carballo MD 11/16/2019 09:24 Dr. Avery Carballo MD in [facility] 11/16/2019 09:24
--- NOTE | 2019-11-16 08:58 | PC.NURSE ---
Dr. Torres and Crisat @ [facility]. He ordered to decrease PEEP to 8. He manually decreased PEEP to 8 while in the room. Dr. Torres also ordered to wean PEEP to 5 over the wknd and to do an SBT on Tuesday for 1hr (PS of 5 for SBT). Crista notified RT of changes and orders for the wknd. Plan to extubate on Tuesday.
--- NOTE | 2019-11-16 09:10 | PC.NURSE ---
Addendum entered by Ayleen Kelly RN 11/16/19 09:17: Dr. Torres asked that I fax these additional orders to pharmacy as well: Decrease Dilaudid to 0.25mg IV Q1hr scheduled. Decrease Dilaudid to 0.5mg IV Q1hr prn. Titrate to a RASS of -3 to -4 and a CPOT of <= 2. All orders faxed to pharmacy. Original Note: Dr. Torres ordered Lasix 40mg IV x 1 dose. Order faxed to pharmacy
--- NOTE | 2019-11-16 09:37 | HMH.PULMPN ---
Internal Medicine - PN: Subj *Date: 11/16/19 *Time: 09:37 Interval history: No acute events overnight. Exam Vital signs and Labs for Last 24 Hours: Temp Pulse Resp BP Pulse Ox 98.1 F 58 L 22 112/60 94 L 11/16/19 09:00 11/16/19 09:00 11/16/19 09:00 11/16/19 09:00 11/16/19 09:05 Laboratory Results - last 24 hr 11/15/19 10:56: POC Glucose 165 H 11/15/19 17:06: POC Glucose 147 H 11/16/19 06:41: Specimen Source R radial, O2 % 55%, ABG pH 7.37, ABG pCO2 43.9, ABG pO2 88.3, ABG HCO3 24.7, ABG Total CO2 26.0, ABG O2 Saturation 97, ABG Base Excess -0.6, Vent Rate 22, Tidal Volume 480, PEEP 10 I & O for Last 24 hours: Intake & Output 11/13/19 11/14/19 11/15/19 11/16/19 23:59 23:59 23:59 23:59 Intake Total 3915 / 4046 2928 / 2934 1788 / 1788 833 / 833 Output Total 875 / 905 1130 / 1170 2600 / 2600 530 / 530 Balance 3040 / 3141 1798 / 1764 -812 / -812 303 / 303 Weight 239 lb 8 oz 244 lb 2 oz 246 lb 8 oz 248 lb 7.375 oz Microbiology Reports for the Last 24 Hours: Microbiology 11/13/19 08:45 Anus CRE Surveillance Culture - Final Negative 11/13/19 08:30 Sputum - Endotracheal Tube Aspirate Gram Stain - Final 11/13/19 08:30 Sputum - Endotracheal Tube Aspirate Sputum Culture - Preliminary - *Routine HEENT Exam Head: Present: normocephalic, atraumatic - *Routine Neck Exam Present: supple, full ROM. Absent: lymphadenopathy - *Routine Respiratory Exam Present: patient mechanically ventilated, rhonchi. Absent: accessory muscle use - *Routine Cardiovascular Exam Present: Normal S1, Normal S2 - *Routine Abdominal Exam Present: soft, normoactive bowel sounds. Absent: tenderness, distended, rebound - *Routine Extremities Exam Absent: cyanosis, clubbing, edema Assessment and Plan (1) Bradycardia Status: Acute Category: Medical Code(s): R00.1 - Bradycardia, unspecified (2) Acute hypoxemic respiratory failure due to COVID-19 Status: Acute Category: Medical Code(s): U07.1 - COVID-19; J96.01 - Acute respiratory failure with hypoxia (3) Pneumonia due to COVID-19 virus Status: Acute Category: Medical Code(s): U07.1 - COVID-19; J12.89 - Other viral pneumonia (4) Obesity (BMI 30.0-34.9) Status: Acute Category: Medical Code(s): E66.9 - Obesity, unspecified (5) Type 2 diabetes mellitus Status: Acute Qualifiers: Diabetes mellitus [facility] insulin use: without [facility] use Diabetes mellitus complication status: with hyperglycemia Qualified Code(s): E11.65 - Type 2 diabetes mellitus with hyperglycemia Category: Medical Code(s): E11.9 - Type 2 diabetes mellitus without complications (6) Warfarin anticoagulation Status: Acute Category: Medical Code(s): Z79.01 - [facility] (current) use of anticoagulants (7) Atrial fibrillation Status: Chronic Qualifiers: Atrial fibrillation type: longstanding persistent Qualified Code(s): I48.11 - Longstanding persistent atrial fibrillation Category: Medical Code(s): I48.91 - Unspecified atrial fibrillation (8) CAD (coronary artery disease) Status: Chronic Qualifiers: Coronary Disease-Associated Artery/Lesion type: bypass graft [place] vs. transplanted heart: [place] heart Associated angina: without angina Qualified Code(s): I25.810 - Atherosclerosis of coronary artery bypass graft(s) without angina pectoris Category: Medical Code(s): I25.10 - Atherosclerotic heart disease of [place] coronary artery without angina pectoris (9) HLD (hyperlipidemia) Status: Chronic Qualifiers: Hyperlipidemia type: mixed hyperlipidemia Qualified Code(s): E78.2 - Mixed hyperlipidemia Category: Medical Code(s): E78.5 - Hyperlipidemia, unspecified (10) HTN (hypertension) Status: Chronic Qualifiers: Hypertension type: essential hypertension Qualified Code(s): I10 - Essential (primary) hypertension Category: Medical Code(s): I10 - Essenti
[2019-11-16 10:45] LABS: POC Glucose,Bedside 128 (70-110)
--- NOTE | 2019-11-16 11:05 | PC.NURSE ---
pt opens eyes when I inform him that I'm checking his blood sugar. He lifted his hand up and put out 1 finger. Then attempted to touch his ET tube. Dilaudid was decreased this morning which may have contributed to him being more alert. RASS score is currently -2. Propofol gtt increased to 20mcg/kg/min (13mL/hr) for goal of RASS -3 to -4.
--- NOTE | 2019-11-16 11:41 | PC.NURSE ---
pt able to follow commands when oral care completed. No eye opening noted. RASS score -3. Propofol gtt continues @ 20mcg/kg/min (13mL/hr).
--- NOTE | 2019-11-16 12:23 | PC.NURSE ---
Gastric residual 60mL @ 1200. Tubefeeds continue @ 40mL/hr.
--- NOTE | 2019-11-16 14:21 | DIET.NUTRFU ---
Tube Feedings not yet to goal rate-slow advancement due to GRV 60-100ml at times. Currently meeting ~68% of energy needs. Fluid needs met. BG moderate-~160. Weight stable. No changes to nutrition plan at this time- continue to increase to goal rate as tolerated- continuing to monitor.
--- NOTE | 2019-11-16 16:07 | PC.NURSE ---
Addendum entered by Ayleen Kelly RN 11/16/19 17:05: Gastric residual @ 1600 is 20mL. Tubefeed increased to 50mL/hr. Original Note: received call from Dr. Torres. He wants to trial an SBT 40% 09/21 tomorrow morning (40% FiO2 Peep 8 and PS of 8). He wants RN to call him @ 12pm with results.
--- NOTE | 2019-11-16 16:34 | INFXCTL.NOTE ---
Gastric residual 20mL. Tubefeeds increased to 50mL/hr.
--- NOTE | 2019-11-16 17:03 | PC.NURSE ---
Small amount of serosangenous drainage noted on window dressing of left SC TLDL. Dressing changed using sterile technique. No issues noted.
[2019-11-16 17:39] LABS: POC Glucose,Bedside 128 (70-110)
[2019-11-16 17:39] LABS: POC Glucose,Bedside 181 (70-110)
[2019-11-16 17:39] LABS: POC Glucose,Bedside 157 (70-110)
[2019-11-16 17:39] LABS: POC Glucose,Bedside 143 (70-110)
--- NOTE | 2019-11-16 20:07 | PC.NURSE ---
itital assessment rass score of -3, cpot score of 4. diprivan infusing at 20mcq/kg/min, receiving dilauidid 0.25 mg q hour. patient rests comfortably until stimulated, patient grimaces and coughs a small amount, rigid with repositioning. vent settings are ac rate of 22, tv 480, peep of 8 and fio2 of 45%. sats maintaining 91-92%. breath sound diminished throughout all serna, significantly more diminished on left side than right. 7.[address] at 22 at the lip. ogt in place, gastric content aspirated, placement confirmed with auscultation. maddox draining clear yellow urine. small abrasion on meatus from catheter. catheter repositioned. patient turned to right side at a 45 degree angle for secretion mobilization, hob elevated 30 degrees for vap. patient tolerated without incident. sats remained 92% with turn.
--- NOTE | 2019-11-16 20:24 | PC.NURSE ---
2000 pain medication re evaluation cpot 2
--- NOTE | 2019-11-16 20:25 | PC.NURSE ---
pain evaluation cpot 3 hourly dilaudid administered
--- NOTE | 2019-11-16 21:04 | PC.NURSE ---
pain medication re eval cpot 3, rass -3. continues to grimace and cough with stimulation. more frequent suctioning is needed tonight, thick yellow, pin secretions obtained. sats maintaining 91-92% on 45% fio2
--- NOTE | 2019-11-16 21:39 | PC.NURSE ---
2130 pain medication administered as ordered, cpot 4, over breathing vent at 24 bpm.
--- NOTE | 2019-11-16 21:41 | PC.NURSE ---
patient repositioned to the right side, 45 degree angle with hob at 30 degrees.
[2019-11-16 21:44] LABS: POC Glucose,Bedside 128 (70-110)
--- NOTE | 2019-11-16 21:55 | PC.NURSE ---
pain med re evaluation cpot 2, no longer breathing over vent. rr 22.
--- NOTE | 2019-11-16 23:07 | PC.NURSE ---
2300 pain medication re eval cpot 2 after dilaudid given.
[2019-11-17] VITALS (37 sets, daily range): BP systolic 102–143; BP diastolic 59–81; PULSE 63–90; RESP 18–27; TEMP 36.7–37.5; O2SAT 92–96; BMI 30.8
--- NOTE | 2019-11-17 00:04 | PC.NURSE ---
7282 pain medication re evaluation patient more awake at this time, cpot 5, rass -2. patient repositioned to right side. 45 degree angle and hob up 30 degrees patient tolerated with minimal coughing during position change.
--- NOTE | 2019-11-17 01:19 | PC.NURSE ---
0055 cpot back down to 2, patient grimaces with stimulation. diagnostic cardiac sonographer shows more frequent multifocal pvcs.
--- NOTE | 2019-11-17 01:56 | PC.NURSE ---
0155 pain medication re eval cpot at 5 prn dose of dilaudid given. patient repositioned in supine position, tolerated poorly. patient grimacing ,opening eyes, breathing 28-30 bpm, sats 94-95% high airway pressure alarms repeatedly sounding, suctioned moderate amount of thick yellow , reddish secretions. patient reaching up to ett. tlc oozing ss drainage, dressing reinforced.
--- NOTE | 2019-11-17 02:18 | PC.NURSE ---
pain medication re evaluation patient resting now with rr of 22, peak airway pressure sustaining in the mid to high 30s. cpot 0, rass -3.
--- NOTE | 2019-11-17 03:32 | PC.NURSE ---
pain medication re evaluation. cpot 2, rass -3. central line dressing changed due to saturation, no coagulation noted.
--- NOTE | 2019-11-17 04:23 | PC.NURSE ---
0410 pain med re eval cpot score of 2, rr 22, peak airway pressures 32, o2 sats 93-94%
--- NOTE | 2019-11-17 04:59 | PC.NURSE ---
pain medication re assessment cpot 1, rass -3,
[2019-11-17 05:56] LABS: Alanine Aminotransferase 16 U/L (12-78); Albumin Level 2.6 g/dl (3.5-5.0); Albumin/Globulin Ratio 0.8 (1.1-1.8); Alkaline Phosphatase 43 U/L (38-126); Anion Gap 8.1 mEq/L (5-15); Aspartate Amino Transferase 62 U/L (17-59); Bilirubin,Total 1.2 mg/dl (0.2-1.3); Blood Urea Nitrogen 35 mg/dl (9-20); Calcium 7.7 mg/dl (8.4-10.2); Carbon Dioxide 30 mmol/L (22.0-30.0); Chloride 111 mmol/L (98-107); Creatinine Clearance Estimated 99 mL/min (50-200); Estimated Glomerular Filt Rate 73 ml/min (>60); GFR (African American) 88 ML/MIN (>60); Globulin 3.2 g/dL (1.3-3.2); Glucose 184 mg/dl (74-100); Sodium 144 mmol/L (136-145); Total Protein,Serum 5.8 g/dl (6.3-8.2)
[2019-11-17 06:02] LABS: Potassium 5.1 mmoL/L (3.5-5.1)
--- NOTE | 2019-11-17 06:06 | PC.NURSE ---
medication re assessment cpot 1, rass -3. patient resting comfortably. sats 92-94% on 45% fio2. breath sounds diminished throughout all serna more so on the left than on the right, have suctioned moderate amounts of thick, yellow pink tinged secretions throughout the shift. o2 sats have maintained 90-9% on 45% fio2. diprivan remains at 20 mcq/kg/min. patient rass has been between 1 and -3 with cpot 0 to 5 requiring 1 prn dose of dilaudid. tube feeding remains at 50 ml/hr with residuals greater than 120ml.
--- NOTE | 2019-11-17 08:32 | HMH.ACPN2 ---
Internal Medicine - PN: Subj *Date: 11/17/19 *Time: 08:32 Interval history: Patient has been weaned off sedation somewhat, he is much more alert, responsive, denies pain with shaking his head no. Able to pull 620 mL's on spontaneous breathing through the ET tube. Exam Vital signs and Labs for Last 24 Hours: Temp Pulse Resp BP Pulse Ox 99.5 F 87 24 143/73 H 96 11/17/19 03:00 11/17/19 08:00 11/17/19 08:00 11/17/19 08:00 11/17/19 08:00 Laboratory Results - last 24 hr 11/15/19 06:18: POC Glucose 128 H 11/15/19 20:54: POC Glucose 128 H 11/16/19 05:36: POC Glucose 143 H 11/16/19 10:59: POC Glucose 157 H 11/16/19 16:13: POC Glucose 181 H 11/16/19 20:38: POC Glucose 128 H 11/17/19 05:40: Sodium 144, Potassium 5.1, Chloride 111 H, Carbon Dioxide 30, Anion Gap 8.1, BUN 35 H D, Creatinine 1.00 D, Estimated Creat Clear 99, Estimated GFR 73, Est GFR ( Amer) 88 D, Glucose 184 H, Calcium 7.7 L, Total Bilirubin 1.2, AST 62 H, ALT 16, Alkaline Phosphatase 43, Total Protein 5.8 L, Albumin 2.6 L, Globulin 3.2, Albumin/Globulin Ratio 0.8 L I & O for Last 24 hours: Intake & Output 11/14/19 11/15/19 11/16/19 11/17/19 11:59 11:59 11:59 11:59 Intake Total 4548 / 4579 1560 / 1606 2430 / 2490 2102 / 2102 Output Total 1089 / 1116 1141 / 1516 2900 / 3250 3350 / 3350 Balance 3459 / 3463 419 / 90 -470 / -760 -1248 / -1248 Weight 244 lb 2 oz 246 lb 8 oz 248 lb 7.375 oz 245 lb 2.464 oz Microbiology Reports for the Last 24 Hours: Microbiology 11/13/19 08:30 Sputum - Endotracheal Tube Aspirate Gram Stain - Final 11/13/19 08:30 Sputum - Endotracheal Tube Aspirate Sputum Culture - Preliminary Gram Positive Cocci 11/09/19 21:41 Sputum - Expectorated Sputum Gram Stain - Final 11/09/19 21:41 Sputum - Expectorated Sputum Sputum Culture - Final Staphylococcus aureus Narrative: Lungs have rhonchorous and ventilatory sounds bilaterally, symmetric air entry. ET and OG tube are in good position. Heart rate regular. Abdomen soft. No pedal edema or clubbing. Central line of the left side has had some bleeding. Assessment and Plan (1) Bradycardia Status: Acute Category: Medical Code(s): R00.1 - Bradycardia, unspecified (2) Acute hypoxemic respiratory failure due to COVID-19 Status: Acute Category: Medical Code(s): U07.1 - COVID-19; J96.01 - Acute respiratory failure with hypoxia (3) Pneumonia due to COVID-19 virus Status: Acute Category: Medical Code(s): U07.1 - COVID-19; J12.89 - Other viral pneumonia (4) Obesity (BMI 30.0-34.9) Status: Acute Category: Medical Code(s): E66.9 - Obesity, unspecified (5) Type 2 diabetes mellitus Status: Acute Qualifiers: Diabetes mellitus long distance billing operator insulin use: without [facility] use Diabetes mellitus complication status: with hyperglycemia Qualified Code(s): E11.65 - Type 2 diabetes mellitus with hyperglycemia Category: Medical Code(s): E11.9 - Type 2 diabetes mellitus without complications (6) Warfarin anticoagulation Status: Acute Category: Medical Code(s): Z79.01 - supervisor intermediates (current) use of anticoagulants (7) Atrial fibrillation Status: Chronic Qualifiers: Atrial fibrillation type: longstanding persistent Qualified Code(s): I48.11 - Longstanding persistent atrial fibrillation Category: Medical Code(s): I48.91 - Unspecified atrial fibrillation (8) CAD (coronary artery disease) Status: Chronic Qualifiers: Coronary Disease-Associated Artery/Lesion type: bypass graft [place] vs. transplanted heart: [place] heart Associated angina: without angina Qualified Code(s): I25.810 - Atherosclerosis of coronary artery bypass graft(s) without angina pectoris Category: Medical Code(s): I25.10 - Atherosclerotic heart disease of [place] coronary artery without angina pectoris (9) HLD (hyperlipidemia) Status: Chronic Qualifier
--- NOTE | 2019-11-17 08:40 | PC.NURSE ---
RT started SBT on pt at this time. PS 8/8 and 40%. Pt tolerating change well. Will get ABG in one hour
--- NOTE | 2019-11-17 09:40 | HMH.ACPN ---
Internal Medicine - PN: Subj *Date: 11/17/19 *Time: 09:41 Exam Vital signs and Labs for Last 24 Hours: Temp Pulse Resp BP Pulse Ox 98.2 F 79 18 137/66 94 L 11/17/19 09:00 11/17/19 09:00 11/17/19 09:00 11/17/19 09:00 11/17/19 09:00 Laboratory Results - last 24 hr 11/15/19 06:18: POC Glucose 128 H 11/15/19 20:54: POC Glucose 128 H 11/16/19 05:36: POC Glucose 143 H 11/16/19 10:59: POC Glucose 157 H 11/16/19 16:13: POC Glucose 181 H 11/16/19 20:38: POC Glucose 128 H 11/17/19 05:40: Sodium 144, Potassium 5.1, Chloride 111 H, Carbon Dioxide 30, Anion Gap 8.1, BUN 35 H D, Creatinine 1.00 D, Estimated Creat Clear 99, Estimated GFR 73, Est GFR ( Amer) 88 D, Glucose 184 H, Calcium 7.7 L, Total Bilirubin 1.2, AST 62 H, ALT 16, Alkaline Phosphatase 43, Total Protein 5.8 L, Albumin 2.6 L, Globulin 3.2, Albumin/Globulin Ratio 0.8 L I & O for Last 24 hours: Intake & Output 11/14/19 11/15/19 11/16/19 11/17/19 23:59 23:59 23:59 23:59 Intake Total 2928 / 2934 1788 / 1788 2641 / 2641 742 / 742 Output Total 1130 / 1170 2600 / 2600 3720 / 3720 710 / 710 Balance 1798 / 1764 -812 / -812 -1079 / -1079 32 / 32 Weight 110.733 kg 111.811 kg 112.7 kg 111.2 kg Microbiology Reports for the Last 24 Hours: Microbiology 11/13/19 08:30 Sputum - Endotracheal Tube Aspirate Gram Stain - Final 11/13/19 08:30 Sputum - Endotracheal Tube Aspirate Sputum Culture - Preliminary Gram Positive Cocci 11/09/19 21:41 Sputum - Expectorated Sputum Gram Stain - Final 11/09/19 21:41 Sputum - Expectorated Sputum Sputum Culture - Final Staphylococcus aureus Assessment and Plan (1) Bradycardia Status: Acute Category: Medical Code(s): R00.1 - Bradycardia, unspecified (2) Acute hypoxemic respiratory failure due to COVID-19 Status: Acute Category: Medical Code(s): U07.1 - COVID-19; J96.01 - Acute respiratory failure with hypoxia (3) Pneumonia due to COVID-19 virus Status: Acute Category: Medical Code(s): U07.1 - COVID-19; J12.89 - Other viral pneumonia (4) Obesity (BMI 30.0-34.9) Status: Acute Category: Medical Code(s): E66.9 - Obesity, unspecified (5) Type 2 diabetes mellitus Status: Acute Qualifiers: Diabetes mellitus correction insulin use: without correction use Diabetes mellitus complication status: with hyperglycemia Qualified Code(s): E11.65 - Type 2 diabetes mellitus with hyperglycemia Category: Medical Code(s): E11.9 - Type 2 diabetes mellitus without complications (6) Warfarin anticoagulation Status: Acute Category: Medical Code(s): Z79.01 - [facility] (current) use of anticoagulants (7) Atrial fibrillation Status: Chronic Qualifiers: Atrial fibrillation type: longstanding persistent Qualified Code(s): I48.11 - Longstanding persistent atrial fibrillation Category: Medical Code(s): I48.91 - Unspecified atrial fibrillation (8) CAD (coronary artery disease) Status: Chronic Qualifiers: Coronary Disease-Associated Artery/Lesion type: bypass graft [place] vs. transplanted heart: [place] heart Associated angina: without angina Qualified Code(s): I25.810 - Atherosclerosis of coronary artery bypass graft(s) without angina pectoris Category: Medical Code(s): I25.10 - Atherosclerotic heart disease of [place] coronary artery without angina pectoris (9) HLD (hyperlipidemia) Status: Chronic Qualifiers: Hyperlipidemia type: mixed hyperlipidemia Qualified Code(s): E78.2 - Mixed hyperlipidemia Category: Medical Code(s): E78.5 - Hyperlipidemia, unspecified (10) HTN (hypertension) Status: Chronic Qualifiers: Hypertension type: essential hypertension Qualified Code(s): I10 - Essential (primary) hypertension Category: Medical Code(s): I10 - Essential (primary) hypertension (11) S/P CABG x 4 Status: Chronic Category: Surgical Code(s): Z95.1 - Pres
--- NOTE | 2019-11-17 10:00 | PC.NURSE ---
0800 - Central line dressing saturated w/ blood. Site cleaned using sterile technique and dressing changed. SBT started @ 0840, initiated by RT Conchis. Pt tolerated well. Is able to follow commands and opens eye to voice. Breathing spontaneously, Spont TV noted to be in 630's breathing 16 resp/min. Trial ended @ 0940, pt placed back on assist control by RT.
--- NOTE | 2019-11-17 10:05 | PC.NURSE ---
RT obtained ABG and switched pt back to Assist Control mode 480,22,8 and 40%. Melissa will be notified at noon of pt passing SBT
[2019-11-17 10:14] LABS: ABG Base Excess 0.8 mmol/L (-2.4-2.3); ABG HCO3 25.8 mmhg (22.0-26.0); ABG Oxygen Saturation 92 % (90-100); ABG PCO2 43.6 mmhg (35.0-45.0); ABG PH 7.39 mmol/L (7.35-7.45); ABG PO2 57.8 mmhg (80-100); ABG TCO2 27.1 mmhg (23-27)
[2019-11-17 10:15] LABS: Allen's Test Acceptable; Oxygen 40% %; PEEP 8; Pressure Support 8; Source Right Radial
[2019-11-17 11:16] LABS: POC Glucose,Bedside 195 (70-110)
--- NOTE | 2019-11-17 13:55 | PC.NURSE ---
Spoke w/ Dr. Torres @ this time about SBT this morning. States to do another SBT in the morning w/ 40% FIO2 PEEP 8 PS 5. No need for ABG after SBT. States to obtain a CXR tuesday w/ anticipation of extubation that day.
[2019-11-17 16:50] LABS: POC Glucose,Bedside 153 (70-110)
--- NOTE | 2019-11-17 17:35 | PC.NURSE ---
REMAINS ON [facility] VENT, SETTINGS FOLLOWS: ASMV TV - 480 RESP RATE - 22 PEEP -8 FIO2 - 40%, TOLERATING WELL. RASS AT THIS TIME -2, IS ABLE TO FOLLOW COMMANDS AND OPENS EYES TO VOICE. PROPOFOL GTT @ 20 MCG/KG/MIN. LUNGS DIMINISHED THROUGHOUT UPON AUSCULTATION. HAS BEEN SUCTIONED AND ORAL CARE PROVIDED Q2H, HOB REMAINS > 30 DEGREES . #7.5 ETT REMAINS 22 @ LIP MIDLINE. OG 65 @ LIP, PLACEMENT CHECKED BY AUSCULTATION. JEVITY 1.2 CISCO TF @ 50 MLS/HR, RESIDUALS CHECKED Q4H ORDERED. PT DID HAVE ONE SMALL SOFT BM THIS SHIFT. BS ACTIVE IN ALL QUADS. CROUCH CATH TO DRAIN AT BEDSIDE W/ CLEAR LIGHT SINTIA URINE NOTED. NO EDEMA NOTED. SKIN TEAR TO LFA, DRESSING CHANGED THIS SHIFT. PT TURNED Q2H WELL HEELS FLOATED. PT RESTING COMFORTABLY AT THIS TIME.
--- NOTE | 2019-11-17 20:00 | PC.NURSE ---
1999 pain medication re assessment cpot 3 currently. initital assessment performed vent shows tv 100 to 200, rr 29-30 and pea aiay pressure high 40s-50s. sats 94% on 40% fio2. audible leak around cuff respiratory therapy notified. after respiratory therapy intervention tv remaining in the 400s, peak pressure remain in the 40s rr back to 22. breath sounds course and dininshed throughout, secretion thick, yellow, rust colored. patient cpot during stimulation of 3 and rass -2. follows commands moves all extremities. diprivan infusing at 20mcq/kg/min. ogt auscultated for placement, gastric content aspirated, 80 ml. tube feeding increased to 60ml/hr. maddox patent draining alex yellow urine.
--- NOTE | 2019-11-17 20:24 | PC.NURSE ---
2015 dr thorne notified of air leak in cuff, no new orders at this time
[2019-11-17 20:45] LABS: POC Glucose,Bedside 182 (70-110)
--- NOTE | 2019-11-17 21:13 | PC.NURSE ---
2100 pain medication reassessment rass score of 1
--- NOTE | 2019-11-17 22:00 | PC.NURSE ---
2200 pain medication reassessment cpot 1. rr 24-25
--- NOTE | 2019-11-17 23:01 | PC.NURSE ---
pain medication re assessment cpot 1
[2019-11-18] VITALS (42 sets, daily range): BP systolic 104–166; BP diastolic 59–99; PULSE 63–115; RESP 8–25; TEMP 36.9–37.4; O2SAT 90–98; BMI 30.8
--- NOTE | 2019-11-18 00:01 | PC.NURSE ---
0000 pain medication re assessment cpot 1 rr 22. ett cuff being maintained by respiratory therapy, tv sustaining greater than 450, peak airway pressures high 30s, o2 sats 93% on 40 % fio2 and end tidal co2 36. breath sounds remain diminished and course, left more so then right but less diminished then previous assessment. ogt infusing at 60ml/hr, residual checked with 150 ml and auscultated for placement.
--- NOTE | 2019-11-18 01:05 | PC.NURSE ---
pain medication reassessment cpot 1, rr 24
--- NOTE | 2019-11-18 01:57 | PC.NURSE ---
0200 pain medication re assessment cpot score of 0
--- NOTE | 2019-11-18 02:58 | PC.NURSE ---
0030 pain medication re assessment cpot 1, rr 24
--- NOTE | 2019-11-18 04:07 | PC.NURSE ---
0400 pain medication reassessment cpot 1. after 399 nursing assessment tube feeding increased to goal rate of 67ml/hr. cuff pressure in et tube being monitored by respiratory therapy, air being applied when indicated.
--- NOTE | 2019-11-18 05:07 | PC.NURSE ---
0500 pain medication reassessment cpot 0
[2019-11-18 05:50] LABS: POC Glucose,Bedside 167 (70-110)
--- NOTE | 2019-11-18 06:02 | PC.NURSE ---
0600 pain medication reassessment cpot 3
[2019-11-18 06:42] LABS: Alanine Aminotransferase 14 U/L (12-78); Albumin Level 2.5 g/dl (3.5-5.0); Albumin/Globulin Ratio 0.8 (1.1-1.8); Alkaline Phosphatase 64 U/L (38-126); Anion Gap 7.3 mEq/L (5-15); Aspartate Amino Transferase 44 U/L (17-59); Bilirubin,Total 0.8 mg/dl (0.2-1.3); Blood Urea Nitrogen 28 mg/dl (9-20); Calcium 7.9 mg/dl (8.4-10.2); Carbon Dioxide 33 mmol/L (22.0-30.0); Chloride 110 mmol/L (98-107); Creatinine Clearance Estimated 99 mL/min (50-200); Estimated Glomerular Filt Rate 82 ml/min (>60); GFR (African American) 99 ML/MIN (>60); Glucose 194 mg/dl (74-100); Potassium 4.3 mmoL/L (3.5-5.1); Sodium 146 mmol/L (136-145); Total Protein,Serum 5.5 g/dl (6.3-8.2)
--- NOTE | 2019-11-18 06:58 | PC.NURSE ---
0700 pain medication re assessment cpot 1
--- NOTE | 2019-11-18 08:20 | PC.NURSE ---
0820 - Dr. Plaza aware of leak in cuff. States he will speak w/ Dr. Torres. 0830 - Spoke w/ Dr. Plaza via telephone @ this time. States to stop TF and begin to wean sedation at this time w/ anticipations to extubate around 1030 this AM. TF stopped and Diprivan decreased from 15 mcg/kg/min to 10 mcg/kg/min. States after extubation to place pt on BIPAP for one hour w/ hopes to transition to nasal cannula if pt tolerates. RT notified of this. RT at bedside @ this time, pt has been transitioned to [facility].
--- NOTE | 2019-11-18 08:25 | HMH.ACPN2 ---
Internal Medicine - PN: Subj *Date: 11/18/19 *Time: 08:25 Interval history: Patient did very well overnight. Unfortunately, his ET tube cuff seems to have developed a leak, it is in good position on chest x-ray but staff is having to instill quite a bit of air into the cuff to keep pressure alarms from going off. Patient has done well and did very nicely with his breathing trial yesterday, maintaining acceptable saturations and did not seem to be fatigued. This morning even on sedation he is responsive, able to pull 500 mL's on tidal volume through the ET tube. Exam Vital signs and Labs for Last 24 Hours: Temp Pulse Resp BP Pulse Ox 99.3 F 84 22 104/62 L 95 11/18/19 04:00 11/18/19 07:49 11/18/19 07:49 11/18/19 07:00 11/18/19 07:49 Laboratory Results - last 24 hr 11/17/19 05:34: POC Glucose 182 H 11/17/19 10:11: Specimen Source Right radial, O2 % 40%, ABG pH 7.39, ABG pCO2 43.6, ABG pO2 57.8 L, ABG HCO3 25.8, ABG Total CO2 27.1 H, ABG O2 Saturation 92, ABG Base Excess 0.8, Vitor Test Acceptable, PEEP 8 11/17/19 11:02: POC Glucose 195 H 11/17/19 16:14: POC Glucose 153 H 11/18/19 05:36: POC Glucose 167 H 11/18/19 05:40: Sodium 146 H, Potassium 4.3, Chloride 110 H, Carbon Dioxide 33 H, Anion Gap 7.3, BUN 28 H, Creatinine 0.90, Estimated Creat Clear 99, Estimated GFR 82, Est GFR ( Amer) 99, Glucose 194 H, Calcium 7.9 L, Total Bilirubin 0.8, AST 44 D, ALT 14, Alkaline Phosphatase 64, Total Protein 5.5 L, Albumin 2.5 L, Globulin 3.0, Albumin/Globulin Ratio 0.8 L I & O for Last 24 hours: Intake & Output 11/15/19 11/16/19 11/17/19 11/18/19 11:59 11:59 11:59 11:59 Intake Total 1560 / 1606 2430 / 2490 2435 / 2650 2192 / 2192 Output Total 1141 / 1516 2900 / 3250 3640 / 3990 1994 Balance 419 / 90 -470 / -760 -1205 / -1340 197 / 197 Weight 246 lb 8 oz 248 lb 7.375 oz 245 lb 2.464 oz 245 lb 5.992 oz Microbiology Reports for the Last 24 Hours: Microbiology 11/13/19 08:30 Sputum - Endotracheal Tube Aspirate Gram Stain - Final 11/13/19 08:30 Sputum - Endotracheal Tube Aspirate Sputum Culture - Final Staphylococcus haemolyticus Narrative: Patient is awake, alert, responsive to verbal and tactile stimuli. Lungs have symmetric air entry. Rhonchorous ventilator sounds. Heart rate regular. Abdomen soft. Perfusion good. ET and OG tube in good position. Able to move extremities on command. Assessment and Plan (1) Bradycardia Status: Acute Category: Medical Code(s): R00.1 - Bradycardia, unspecified (2) Acute hypoxemic respiratory failure due to COVID-19 Status: Acute Category: Medical Code(s): U07.1 - COVID-19; J96.01 - Acute respiratory failure with hypoxia (3) Pneumonia due to COVID-19 virus Status: Acute Category: Medical Code(s): U07.1 - COVID-19; J12.89 - Other viral pneumonia (4) Obesity (BMI 30.0-34.9) Status: Acute Category: Medical Code(s): E66.9 - Obesity, unspecified (5) Type 2 diabetes mellitus Status: Acute Qualifiers: Diabetes mellitus terminal makeup operator insulin use: without terminal makeup operator use Diabetes mellitus complication status: with hyperglycemia Qualified Code(s): E11.65 - Type 2 diabetes mellitus with hyperglycemia Category: Medical Code(s): E11.9 - Type 2 diabetes mellitus without complications (6) Warfarin anticoagulation Status: Acute Category: Medical Code(s): Z79.01 - [facility] (current) use of anticoagulants (7) Atrial fibrillation Status: Chronic Qualifiers: Atrial fibrillation type: longstanding persistent Qualified Code(s): I48.11 - Longstanding persistent atrial fibrillation Category: Medical Code(s): I48.91 - Unspecified atrial fibrillation (8) CAD (coronary artery disease) Status: Chronic Qualifiers: Coronary Disease-Associated Artery/Lesion type: bypass graft [place] vs. transplanted heart: [place] heart Associated angina: without angina Qualif
--- NOTE | 2019-11-18 08:50 | PC.NURSE ---
RT switched pt to Spontaneous breathing mode (8/8 and 40%). Pt maintaining well. Will continue to monitor
--- NOTE | 2019-11-18 09:04 | PC.NURSE ---
Addendum entered by Fawn Ferreira RN 11/18/19 09:46: 0945 - Diprivan off @ this time. Addendum entered by Fawn Ferreira RN 11/18/19 09:14: 0900 - Diprivan decreased to 5 mcg/kg/min Original Note: 819 - Dr. Plaza aware of leak in cuff. States he will speak w/ Dr. Torres. 0830 - Spoke w/ Dr. Plaza via telephone @ this time. States to stop TF and begin to wean sedation at this time w/ anticipations to extubate around 1030 this AM. TF stopped and Diprivan decreased from 15 mcg/kg/min to 10 mcg/kg/min. States after extubation to place pt on BIPAP for one hour w/ hopes to transition to nasal cannula if pt tolerates. ABG to be collected two hours after extubation time. RT notified of this. RT at bedside @ this time, pt has been transitioned to spontaneous trial. Covid swab to be collected as well this AM. Will notify lab. Pt tolerating well, spont resp 16-18/min w/ HR in 80's. Pt follows commands and is cooperative.
--- NOTE | 2019-11-18 11:17 | PC.NURSE ---
1020 - Pt's family updated on pt's status at this time. Plan to recall family and give update after extubation.
--- NOTE | 2019-11-18 11:40 | PC.NURSE ---
Pt extubated to Bipap S/T / and 50% 02 @ 1140. Saturations staying above 90 at this time. Will continue to monitor pt
--- NOTE | 2019-11-18 11:42 | PC.NURSE ---
1130 - Pt extubated @ 1130. Tolerated well. Suctioning and oral care provided. Sats maintaining > 90% on BIPAP @ 50%. Resp easy and non-labored at 18-20/min. Lungs diminished upon auscultation. Pt is able to follow commands and when asked questions gestures appropriately.
[2019-11-18 12:14] LABS: POC Glucose,Bedside 170 (70-110)
--- NOTE | 2019-11-18 12:16 | PC.NURSE ---
Addendum entered by Fawn Ferreira RN 11/18/19 12:52: 1230 - Dr. Plaza made aware that pt's covid swab from this AM is positive. Original Note: 1155 -Updated Dr. Plaza on pt @ this time. States to restart pt's Coreg 25 mg BID w/ first dose to be given now. Pt resting comfortably on BIPAP, sat currently 95%.
--- NOTE | 2019-11-18 12:48 | PC.NURSE ---
Updated pt's family @ this time of extubation and pt's current status.
[2019-11-18 14:00] LABS: ABG Base Excess 4.1 mmol/L (-2.4-2.3); ABG HCO3 28.4 mmhg (22.0-26.0); ABG Oxygen Saturation 95 % (90-100); ABG PH 7.43 mmol/L (7.35-7.45); ABG PO2 67.8 mmhg (80-100); ABG TCO2 29.8 mmhg (23-27)
[2019-11-18 15:03] LABS: Allen's Test Acceptable; Oxygen 50% %; Pressure Support 8; Source Left Radial
--- NOTE | 2019-11-18 15:55 | PC.NURSE ---
ABG results reported to Dr. Plaza. No new orders at this time. Pt is resting comfortably, denies pain, only reports some soreness in his throat. Remains on BIPAP @ 50 %, tolerating well. Resp 16-20/min, non-labored w/ occasional non-productive cough noted. SPO2 currently 94%. Remains in A-Fib on tely w/ rate at rest in 80's and 90's, but when pt is awake and moving in bed will increase to 110's. Dr. Plaza aware of this and has re-ordered pt's home dose of Carvedilol BID. Cap refill <3 sec. Pt is able to speak, but voice is very low and d/t BIPAP makes it difficult to understand. He is able to make basic needs voiced to staff and is appropriate and cooperative w/ care. PERRLA. Cover Creaser equal, follows commands w/o difficulty and will even assist staff when turning Q2H and repositioning in bed. Uses call marino appropriately. Lungs diminished upon auscultation. Abdomen soft, non-tender w/ active BS in all quads. Pt has had 4 soft stools thus far. Has been continent of bowels. Arce cath to drain at bedside w/ clear light stephanie urine noted. Has had over 1 L of urine out this shift. Non-skids socks placed on pt. Skin tear to LFA w/ dressing in place C/D/I. Scattered bruising throughout. Healing abrasion noted to meatus. Catheter/ mason care performed this shift. Excoriation noted to pt's scrotum and between legs, pillow case in place to help w/ moisture and reduce skin-skin contact. Barrier cream and powder applied. Oral care and suctioning performed Q2H. Moderate amount of rust/yellow thick secretions have been suctioned this shift. Bed alarm in place. Call marino w/in reach. Pt currently resting w/ eyes closed.
[2019-11-18 17:24] LABS: POC Glucose,Bedside 132 (70-110)
--- NOTE | 2019-11-18 20:11 | PC.NURSE ---
initial assessment, patient awake, alert and oriented. follows commands appropriately. library monitor shows afib from 80s-100s depending on activity. breath sounds course and diminished throughout all serna, continues to be more diminished on left. patient tolerating bipap at 50% fio2 with sats 94%. bipap removed, patient placed on 5 l nc for oral care. patient able to cough moderate amount of secretions up after oral care with sensitive gag reflex. sats dropped to 82%. bipap placed back on , patient recovered back up into the mid 90s within 5 min. patient denies nausea, has had one soft formed stool on bedpan. left sc central dressing changed per sterile technique, no further oozing at site.
[2019-11-18 21:32] LABS: POC Glucose,Bedside 116 (70-110)
[2019-11-18 23:19] LABS: POC Glucose,Bedside 142 (70-110)
[2019-11-19] VITALS (20 sets, daily range): BP systolic 106–145; BP diastolic 57–96; PULSE 70–96; RESP 8–26; TEMP 36.4–37.5; O2SAT 85–98; BMI 30.2
--- NOTE | 2019-11-19 05:56 | PC.NURSE ---
shift summary patient has rested on and off throughout shift. sats have remained greater than 92% on 50 % bipap. during oral care patient placed on 5 l nc, oral care done q 2 hrs, during which sats would drop to 87%. patient would be placed back on bipap and sats would return back to mid 90s with 5 minutes. breath sounds remain diminished throughout all serna. patient coughs secretions up after oral care. thick yellow to thick rust colored at times. oral inspection done. abrasion on back right side of throat. patient has requested the bedpan numerous times throughout shift, have small loose colored brown stools. maddox to gravity, clear yellow urine.
--- NOTE | 2019-11-19 06:00 | XR_ITS ---
PROCEDURE: XR CHEST PORTABLE CLINICAL HISTORY: Covid-19 Positive COMPARISON: CR XR CHEST PORTABLE from 11/14/2019 CR XR CHEST PORTABLE from 11/15/2019 CR XR CHEST PORTABLE from 11/16/2019 FINDINGS: The endotracheal tube and nasogastric tube have been removed. Left subclavian central venous line remains in place with the tip in the region the SVC. There is cardiomegaly without failure. There are low lung volumes with some increased density in the lower lobes consistent with bilateral lower lobe pneumonia which appears slightly worse No acute bony abnormalities. IMPRESSION: Removal of endotracheal tube and nasogastric tube with slight worsening of the bilateral lower lobe airspace disease Dictated by: Vitor Barbosa MD 11/19/2019 06:37 Vitor Barbosa MD in [place] 11/19/2019 06:37
--- NOTE | 2019-11-19 06:30 | PC.NURSE ---
Pt on BiPAP currently tolerating very well at this time. Settings per BiPAP in charting flow sheet. Actual IPAP: 13, EPAP: 6, RR 20, Minute Ventilation: 15, Leak 55, Pressure support 8. Alarms are as follows: High Pressure 45, Low Pressure 8, High RR 45, Low RR 8, Minute ventilation 3, Apnea 20 seconds. Will continue to monitor.
[2019-11-19 07:23] LABS: Chloride 112 mmol/L (98-107); Potassium 4.3 mmoL/L (3.5-5.1); Sodium 144 mmol/L (136-145)
[2019-11-19 07:25] LABS: Blood Urea Nitrogen 27 mg/dl (9-20)
[2019-11-19 07:26] LABS: Alanine Aminotransferase 16 U/L (12-78); Albumin Level 2.6 g/dl (3.5-5.0); Albumin/Globulin Ratio 0.8 (1.1-1.8); Alkaline Phosphatase 59 U/L (38-126); Anion Gap 4.3 mEq/L (5-15); Aspartate Amino Transferase 49 U/L (17-59); Bilirubin,Total 1.3 mg/dl (0.2-1.3); Calcium 8.2 mg/dl (8.4-10.2); Carbon Dioxide 32 mmol/L (22.0-30.0); Creatinine Clearance Estimated 97 mL/min (50-200); Estimated Glomerular Filt Rate 82 ml/min (>60); GFR (African American) 99 ML/MIN (>60); Globulin 3.2 g/dL (1.3-3.2); Glucose 131 mg/dl (74-100); Total Protein,Serum 5.8 g/dl (6.3-8.2)
--- NOTE | 2019-11-19 08:26 | HMH.ACPN2 ---
Internal Medicine - PN: Subj *Date: 11/19/19 *Time: 08:26 Interval history: Patient was successfully extubated yesterday. Currently is on BiPAP, has been able to come off BiPAP to eat some meals and take medications. O2 saturations after 10 minutes off BiPAP remain in the low 90% range. He is alert, pleasant. Restarted carvedilol yesterday. Culture results from ET tube suction noted. Exam Vital signs and Labs for Last 24 Hours: Temp Pulse Resp BP Pulse Ox 99.2 F 87 21 133/72 93 L 11/19/19 04:00 11/19/19 06:30 11/19/19 06:00 11/19/19 06:00 11/19/19 06:00 Laboratory Results - last 24 hr 11/17/19 20:40: POC Glucose 142 H 11/18/19 12:06: POC Glucose 170 H 11/18/19 13:30: Specimen Source Left radial, O2 % 50%, ABG pH 7.43, ABG pCO2 44.0, ABG pO2 67.8 L, ABG HCO3 28.4 H, ABG Total CO2 29.8 H, ABG O2 Saturation 95, ABG Base Excess 4.1 H, Vitor Test Acceptable 11/18/19 17:06: POC Glucose 132 H 11/18/19 21:19: POC Glucose 116 H 11/19/19 05:50: Sodium 144, Potassium 4.3, Chloride 112 H, Carbon Dioxide 32 H, Anion Gap 4.3 L, BUN 27 H, Creatinine 0.90, Estimated Creat Clear 97, Estimated GFR 82, Est GFR ( Amer) 99, Glucose 131 H, Calcium 8.2 L, Total Bilirubin 1.3, AST 49, ALT 16, Alkaline Phosphatase 59, Total Protein 5.8 L, Albumin 2.6 L, Globulin 3.2, Albumin/Globulin Ratio 0.8 L I & O for Last 24 hours: Intake & Output 11/16/19 11/17/19 11/18/19 11/19/19 11:59 11:59 11:59 11:59 Intake Total 2430 / 2490 2435 / 2650 2489 / 2489 510 / 510 Output Total 2900 / 3250 3640 / 3990 2480 / 2555 1491 / 1491 Balance -470 / -760 -1205 / -1340 9 / -66 -981 / -981 Weight 248 lb 7.375 oz 245 lb 2.464 oz 245 lb 5.992 oz 241 lb 2 oz Microbiology Reports for the Last 24 Hours: Microbiology 11/18/19 09:20 Nasopharyngeal Coronavirus COVID-19 PCR - Final 11/13/19 08:30 Sputum - Endotracheal Tube Aspirate Gram Stain - Final 11/13/19 08:30 Sputum - Endotracheal Tube Aspirate Sputum Culture - Final Staphylococcus haemolyticus Narrative: Patient is alert. Pleasant. Breathes easily on the BiPAP. Rhonchorous lungs. Heart rate regular. Good distal perfusion. Neurologic exam intact. Assessment and Plan (1) Bradycardia Status: Acute Category: Medical Code(s): R00.1 - Bradycardia, unspecified (2) Acute hypoxemic respiratory failure due to COVID-19 Status: Acute Category: Medical Code(s): U07.1 - COVID-19; J96.01 - Acute respiratory failure with hypoxia (3) Pneumonia due to COVID-19 virus Status: Acute Category: Medical Code(s): U07.1 - COVID-19; J12.89 - Other viral pneumonia (4) Obesity (BMI 30.0-34.9) Status: Acute Category: Medical Code(s): E66.9 - Obesity, unspecified (5) Type 2 diabetes mellitus Status: Acute Qualifiers: Diabetes mellitus roasterman insulin use: without roasterman use Diabetes mellitus complication status: with hyperglycemia Qualified Code(s): E11.65 - Type 2 diabetes mellitus with hyperglycemia Category: Medical Code(s): E11.9 - Type 2 diabetes mellitus without complications (6) Warfarin anticoagulation Status: Acute Category: Medical Code(s): Z79.01 - [facility] (current) use of anticoagulants (7) Atrial fibrillation Status: Chronic Qualifiers: Atrial fibrillation type: longstanding persistent Qualified Code(s): I48.11 - Longstanding persistent atrial fibrillation Category: Medical Code(s): I48.91 - Unspecified atrial fibrillation (8) CAD (coronary artery disease) Status: Chronic Qualifiers: Coronary Disease-Associated Artery/Lesion type: bypass graft [place] vs. transplanted heart: [place] heart Associated angina: without angina Qualified Code(s): I25.810 - Atherosclerosis of coronary artery bypass graft(s) without angina pectoris Category: Medical Code(s): I25.10 - Atherosclerotic heart disease of [place] coronary artery without angina pectoris (
--- NOTE | 2019-11-19 08:32 | PC.NURSE ---
Bipap taken off and 5L NC applied to swallow meds. Pt has a productive cough and is able to cough secretions up well. Is able to use yan[place] to suction secretions out. Secretions are thick and yellow/pink tinged. Lung sounds are diminished. O2 sats remained in low 90s on 5L NC for aprox 5 min then sats dropped to 86% and sustained. Pt placed back on Bipap 50% and sats returned to mid 90s. Pt is alert (relays that he is @ [facility]) and oriented. Is pleasant.
--- NOTE | 2019-11-19 08:45 | PC.NURSE ---
Dr. Plaza @ rounding. He ordered Lasix 40mg IV x 1 dose NOW and Nystatin cream to genital area prn for excoriation. Orders faxed to pharmacy.
--- NOTE | 2019-11-19 09:11 | PC.NURSE ---
Dr. Torres and Crista @ BS rounding. He ordered to switch to hi flow Vapotherm 40L/50% @ 12pm today. Then give Albuterol/Duoneb after placed on Vapotherm. Then ordered for RT to give Mucomyst neb with 3% Hypertonic saline solution. Order for Mucomyst faxed to pharmacy. Called RT (Barbara) and notified her.
--- NOTE | 2019-11-19 09:59 | HMH.PULMPN ---
Internal Medicine - PN: Subj *Date: 11/19/19 *Time: 09:59 Interval history: No acute events overnight. Patient extubated yesterday to BiPAP Exam Vital signs and Labs for Last 24 Hours: Temp Pulse Resp BP Pulse Ox 98.8 F 78 22 145/84 H 95 11/19/19 08:00 11/19/19 08:00 11/19/19 08:00 11/19/19 08:00 11/19/19 08:00 Laboratory Results - last 24 hr 11/17/19 20:40: POC Glucose 142 H 11/18/19 12:06: POC Glucose 170 H 11/18/19 13:30: Specimen Source Left radial, O2 % 50%, ABG pH 7.43, ABG pCO2 44.0, ABG pO2 67.8 L, ABG HCO3 28.4 H, ABG Total CO2 29.8 H, ABG O2 Saturation 95, ABG Base Excess 4.1 H, Vitor Test Acceptable 11/18/19 17:06: POC Glucose 132 H 11/18/19 21:19: POC Glucose 116 H 11/19/19 05:50: Sodium 144, Potassium 4.3, Chloride 112 H, Carbon Dioxide 32 H, Anion Gap 4.3 L, BUN 27 H, Creatinine 0.90, Estimated Creat Clear 97, Estimated GFR 82, Est GFR ( Amer) 99, Glucose 131 H, Calcium 8.2 L, Total Bilirubin 1.3, AST 49, ALT 16, Alkaline Phosphatase 59, Total Protein 5.8 L, Albumin 2.6 L, Globulin 3.2, Albumin/Globulin Ratio 0.8 L I & O for Last 24 hours: Intake & Output 11/16/19 11/17/19 11/18/19 11/19/19 23:59 23:59 23:59 23:59 Intake Total 2641 / 2641 2361 / 2361 1461 / 1561 260 / 260 Output Total 3720 / 3720 2315 / 2315 1980 / 2180 671 / 671 Balance -1079 / -1079 46 / 46 -519 / -619 -411 / -411 Weight 248 lb 7.375 oz 245 lb 2.464 oz 245 lb 5.992 oz 241 lb 2 oz Microbiology Reports for the Last 24 Hours: Microbiology 11/18/19 09:20 Nasopharyngeal Coronavirus COVID-19 PCR - Final 11/13/19 08:30 Sputum - Endotracheal Tube Aspirate Gram Stain - Final 11/13/19 08:30 Sputum - Endotracheal Tube Aspirate Sputum Culture - Final Staphylococcus haemolyticus Radiology Reports for the Last 24 Hours: Chest x-ray from this morning showed bilateral worsening pulmonary infiltrates - *Routine HEENT Exam Head: Present: normocephalic, atraumatic - *Routine Neck Exam Present: supple. Absent: lymphadenopathy - *Routine Respiratory Exam Present: decreased breath sounds, rhonchi. Absent: accessory muscle use, patient mechanically ventilated - *Routine Cardiovascular Exam Present: Normal S1, Normal S2 - *Routine Abdominal Exam Present: soft, normoactive bowel sounds. Absent: tenderness, distended, rebound - *Routine Extremities Exam Absent: cyanosis, clubbing, edema Assessment and Plan (1) Bradycardia Status: Acute Category: Medical Code(s): R00.1 - Bradycardia, unspecified (2) Acute hypoxemic respiratory failure due to COVID-19 Status: Acute Category: Medical Code(s): U07.1 - COVID-19; J96.01 - Acute respiratory failure with hypoxia (3) Pneumonia due to COVID-19 virus Status: Acute Category: Medical Code(s): U07.1 - COVID-19; J12.89 - Other viral pneumonia (4) Obesity (BMI 30.0-34.9) Status: Acute Category: Medical Code(s): E66.9 - Obesity, unspecified (5) Type 2 diabetes mellitus Status: Acute Qualifiers: Diabetes mellitus care home insulin use: without care home use Diabetes mellitus complication status: with hyperglycemia Qualified Code(s): E11.65 - Type 2 diabetes mellitus with hyperglycemia Category: Medical Code(s): E11.9 - Type 2 diabetes mellitus without complications (6) Warfarin anticoagulation Status: Acute Category: Medical Code(s): Z79.01 - [employer] (current) use of anticoagulants (7) Atrial fibrillation Status: Chronic Qualifiers: Atrial fibrillation type: longstanding persistent Qualified Code(s): I48.11 - Longstanding persistent atrial fibrillation Category: Medical Code(s): I48.91 - Unspecified atrial fibrillation (8) CAD (coronary artery disease) Status: Chronic Qualifiers: Coronary Disease-Associated Artery/Lesion type: bypass graft [place] vs. transplanted heart: [place] heart Associated angina: without angina Qualified Code(s): I25.810 - [employer]
--- NOTE | 2019-11-19 10:00 | HMH.OTEV ---
OT Inpatient Evaluation Rehab OT IP Evaluation Start: 11/19/19 08:25 Freq: ONCE Status: Complete Protocol: Document 11/19/19 09:[address] [facility] (Rec: 11/19/19 09:59 [facility] [id number]) Rehab OT IP Assessment Subjective History Pt resting in bed with bi-pap and agreeable to engage in therapy evaluation. Pt was admitted via ED on 11/09/19 with PNA due to Covid-19. Pt has a past medical history of A-fib, CA, CAD, DM type 2, Hyperlipidemia, HTN, and Peripheral Artery disease. Pt was taken off vent yesterday. Pt reports he lived at home with his prior to admission. Pt explains he was independent with all ADLs and IADLs. He did not require AE prior to becoming ill. Pt also still drove. Subjective I will try. Objective Patient Orientation Person Upper Extremity Gross ROM WFL Bed Mobility bed mobility-scooting,bed mobility - supine/sit,bed mobility - rolling Assist Level Moderate x 2 (50% assist) Rehab OT IP prob,goals,plan Problems Date of Evaluation: 11/19/19 OT IP Problems Bed Mobility,Transfers,Gait, Balance,Self care,Safety Rehab Potential Rehab Potential Good Equipment Needs Assistive Devices Rolling / Wheeled Walker Plan OT intervention Plan Bed Mobility,Transfers,Gait, Balance,Self care,Safety, Therapeutic Exercise OT Plan Frequency Daily Duration LOS Discharge Goals Bed Mobility Ability Assistance x1 Sit to Stand Chair Transfer Ability Moderate x 1 (50% assist) Chair Transfer Ability Moderate x 1 (50% assist) Chair Transfer Technique Sit to/from Ambulatory Chair Transfer Assistive Devices Rolling Walker Lower Body Dressing Ability Assistance X1 Upper Body Dressing Ability Standby Assistance Bathing Ability Assistance x1 Performing Toilet Hygiene Ability Assistance X1 Overall Commode/Toilet Transfer Ability Assistance x1 Commode/Toilet Transfer Technique Sit to/from Ambulatory Discharge Plan OT Discharge Plan Pt would benefit most from short term rehab following hospit
--- NOTE | 2019-11-19 10:09 | SW/DCPLANNER ---
Addendum entered by Ana Reeves 11/22/19 09:57: CALLED [facility] THIS MORNING AND SPOKE WITH JUANI AVALOS FOR THIS FACILITY TO INFORM HER THAT PATIENT HAD TO GO BACK ON THE VENTILATOR AND IS NOT MEDICALLY READY FOR A DISPOSITION.. I HAVE ASKED HER TO KEEP HIS PACKET AND I WILL SEND UPDATES IF PATIENT GETS WELL ENOUGH TO DO REHAB SERVICES... Addendum entered by Ana Reeves 11/20/19 14:50: PATIENT REMAINS ON VAPOTHERM AND IS NOT READY FOR A DISPOSITION OF YET....I HAVE BEEN IN CONTACT WITH [facility] IN [place] [facility] AND THE ADMISSIONS COORINATOR STATED IF WE CAN NOT GET HIM DOWN ON HIS 02 LEVELS ON A NASAL CANNULA THEY CAN NOT TAKE HIM... WAITING TO SEE HOW HE DOES IN THE AM... Original Note: PATIENT REMAINS IN THE ICU BUT IS SHOWING SOME IMPROVEMENT, HE IS OFF THE VENTILATOR AND IS ON A VENTIMASK... DR ISAAC STATED THIS MORNING HE IS CLOSE TO BEING READY FOR A DISPOSITION AND THINKS HE NEEDS REHAB IN ORDER TO GET BACK TO GET BACK TO HIS PREVIOUS LEVEL OF FUNCTIONING...PATIENT CONTINUES TO SHOW POSITIVE FOR COVID19 AND I HAVE SENT IT TO [facility]... IF ACCEPTED HE MAY BE READY FOR A DISPOSITION SOON TUE.. WAITING ON A CALL BACK, REFERRAL WAS SENT THIS MORNING...
--- NOTE | 2019-11-19 10:15 | PC.NURSE ---
Osmel and I tried multiple times to draw blood from deep line without success. Then attempted to stick peripherally without success. Called lab and updated them. Terra reports that she will let the phlebomist know.
--- NOTE | 2019-11-19 10:19 | PC.NURSE ---
called Dr. Plaza's office and spoke to Gila. Informed her that pt's deep line will not draw blood. She will updated him and call me back with new orders.
--- NOTE | 2019-11-19 10:45 | PC.NURSE ---
received call back from Dr. Plaza regarding deep line. He ordered a 1 time Heparin flush via deep line. Order faxed to pharmacy. He does not wish to switch out deep line. Will continue sticking peripherally for labs.
--- NOTE | 2019-11-19 10:46 | HMH.PTEV ---
Physical Therapy Evaluation Rehab PT IP Evaluation Start: 11/19/19 08:25 Freq: ONCE Status: Active Protocol: Document 11/19/19 10:12 [place] (Rec: 11/19/19 10:46 [facility] [id number]) Subjective/History History History This is the initial physical therapy evaluation for Tao Bledsoe, a 78 y/o male who reported the ER with shortness of breath and worsening fatigue and diarreha in the past few days. Pt. also reported that he felt dizzy and weak. Pt. tested positive for COVID-19 11/04/19. Pt. was extubated on 11/18/19 and put on BiPAP. Note by Chase Deshpande, SPT Subjective Subjective Pt. reported feeling weak but doing better than he was. Pt. agreed to participate in PT. Co-treat done with Arben Valdovinos OT Rehab PT IP Eval Objective Appearance Patient Behavior Appropriate,Cooperative, Fatigued Patient Orientation Person,Place Difficulty following instructions none Speech Pattern Appropriate Ambulation Patient Able to Ambulate No Balance Ability to Arise Unable Sitting Balance Leans or slides in chair Dynamic Sitting Balance Ability Poor Transfers Bed Transfer Ability Moderate x 2 (50% assist) ROM All Extremities PT ROM Status ABN Abnormal ROM Comment unable to test due to weakness and fatigue MMT All Extremities PT MMT ABN Abnormal MMT Grade unable to assess due to weakness and fatigue Rehab PT IP prob,goals,plan Problems Date of Evaluation: 11/19/19 PT IP Problems Bed Mobility,Transfers,Self care,Safety Rehab Potential Rehab Potential Fair Equipment Needs Assistive Devices Standard Walker,Rolling / Wheeled Walker Plan PT Intervention Plan Bed Mobility,Transfers,Balance ,Self care,Safety,Therapeutic Exercise PT Plan Frequency BID Duration LOS Discharge Goals Bed Transfer Ability Moderate x 1 (50% assist) Discharge Plan PT Discharge Plan Pt. would benefit from SNF to
[2019-11-19 11:22] LABS: POC Glucose,Bedside 168 (70-110)
--- NOTE | 2019-11-19 11:49 | PC.NURSE ---
Blood drawn for labs from right AC vein by porcelain waxer
[2019-11-19 12:06] LABS: Basophils % 0.2 % (0.1-2.0); Eosinophils # 0.1 K/mm3 (0.0-0.4); Hemoglobin 12.6 g/dL (14.1-18.0); Lymphocytes # 1.2 K/mm3 (0.7-4.5); Lymphocytes % 8.8 % (10-50); Mean Corpuscular HGB Conc 33.1 g/dL (31.8-35.4); Mean Corpuscular Hemoglobin 29.9 pg (27.0-31.2); Mean Corpuscular Volume 90.4 fl (80-94); Mean Platelet Volume 7.8 fl (7.4-10.4); Monocytes # 0.6 K/mm3 (0.1-1.0); Monocytes % 4.5 % (1.7-9.3); Neutrophils # 11.9 K/mm3 (1.8-7.8); Neutrophils % 85.4 % (37.0-80.0); Platelet Count 359 K/mm3 (142-424); Red Blood Count 4.21 M/mm3 (4.60-6.20); Red Cell Distribution Width 15.2 % (11.5-17.5); White Blood Count 13.9 K/mm3 (4.8-10.8)
[2019-11-19 12:07] LABS: Chloride 110 mmol/L (98-107); Potassium 4.5 mmoL/L (3.5-5.1); Sodium 144 mmol/L (136-145)
[2019-11-19 12:09] LABS: Blood Urea Nitrogen 29 mg/dl (9-20); MANUAL DIFFERENTIAL MANUAL DIFFERENTIAL (MANUAL DIFF)
[2019-11-19 12:10] LABS: Alanine Aminotransferase 18 U/L (12-78); Albumin Level 2.7 g/dl (3.5-5.0); Albumin/Globulin Ratio 0.8 (1.1-1.8); Alkaline Phosphatase 68 U/L (38-126); Anion Gap 6.5 mEq/L (5-15); Aspartate Amino Transferase 38 U/L (17-59); Bilirubin,Total 1.6 mg/dl (0.2-1.3); Carbon Dioxide 32 mmol/L (22.0-30.0); Creatinine Clearance Estimated 97 mL/min (50-200); Estimated Glomerular Filt Rate 73 ml/min (>60); GFR (African American) 88 ML/MIN (>60); Globulin 3.2 g/dL (1.3-3.2); Total Protein,Serum 5.9 g/dl (6.3-8.2)
[2019-11-19 12:11] LABS: Calcium 8.5 mg/dl (8.4-10.2); Glucose 172 mg/dl (74-100)
[2019-11-19 12:15] LABS: Prothrombin Time 12.2 seconds (9.4-11.8)
[2019-11-19 12:16] LABS: INR 1.11 (0.9-1.1)
--- NOTE | 2019-11-19 12:24 | PC.NURSE ---
pt now on 40L/60% Vapotherm per RT (Barbara). Sats are in the low 90s. Pt has received his scheduled Albuterol/Duoneb and Mucomyst with hypertonic saline neb.
--- NOTE | 2019-11-19 12:46 | PC.NURSE ---
Pt given Mucomyst and 3% Hypertonic Saline concurrently per Dr. Torres order. Pt tolerated tx well, RR 21 bpm, will continue to monitor.
[2019-11-19 12:47] LABS: Eosinophils % 1 % (0-3); Lymphocytes % 12 % (10-50); Monocytes % 5 % (2-9); Neutrophils % 82 % (42-76); Platelet Estimate Normal; RBC Morphology Normal; Total Cells Counted 100
--- NOTE | 2019-11-19 12:59 | PC.NURSE ---
reviewed Dr. Torres's POC with pharmacy ([facility]). Pharmacy does not need RN to submit any orders at this time.
--- NOTE | 2019-11-19 13:49 | PC.NURSE ---
per Dr. Plaza, staff radiation therapist are to continue giving Coreg as scheduled.
--- NOTE | 2019-11-19 15:01 | PC.NURSE ---
pt has had 3 episodes of diarrhea this shift. Stool specimen sent to lab for a diarrhea panel.
--- NOTE | 2019-11-19 15:06 | PC.NURSE ---
order received from Dr. Plaza for occult blood stool sample.
[2019-11-19 15:15] LABS: Adenovirus F 40/41, stool Not Detected (NotDetected); Astrovirus Not Detected (NotDetected); Campylobacter Not Detected (NotDetected); Clostridium Difficile A/B, PCR Not Detected (NotDetected); Cryptosporidium Not Detected (NotDetected); Cyclospora Cayetanesis Not Detected (NotDetected); Entamoeba histolytica Not Detected (NotDetected); Enteroaggregative E coli Not Detected (NotDetected); Enteropathogenic E coli Not Detected (NotDetected); Enterotoxigenic E coli Not Detected (NotDetected); Giardia lamblia Not Detected (NotDetected); Norovirus Not Detected (NotDetected); Plesimonas Shigalloides, PCR Not Detected (NotDetected); Rotavirus A Not Detected (NotDetected); Salmonella, PCR Not Detected (NotDetected); Sapovirus Not Detected (NotDetected); Shiga-like toxin E coli Not Detected (NotDetected); Shigella Enterovasive E coli Not Detected (NotDetected); Vibrio Cholerae Not Detected (NotDetected); Vibrio, PCR Not Detected (NotDetected); Yersinia Entercolitica, PCR Not Detected (NotDetected)
[2019-11-19 15:28] LABS: Occult Blood,Stool Positive (Negative)
[2019-11-19 16:13] LABS: POC Glucose,Bedside 154 (70-110)
--- NOTE | 2019-11-19 16:16 | PC.NURSE ---
O2 sats staying in the low to mid 80s on 60% Vapotherm. Pt is using IS Q1hr and pulling 750-1000. Productive cough noted. He can use yankeur to suction secretions. He is sitting at 45 degrees. Is alert and oriented. Called RT (Barbara). She will place pt back on Bipap for rest per Dr. Torres.
--- NOTE | 2019-11-19 16:35 | PC.NURSE ---
pt back on Bipap 50% 28/07. Sats are now 95%.
--- NOTE | 2019-11-19 16:43 | PC.NURSE ---
Placed Pt on BiPAP due to SPO2 83%. BiPAP settings in flow sheet. Actual pressure settings IPAP 13, EPAP 6, Spontaneous RR 23 bpm, HR 75, Minute Ventilation 15, Leak 21. Pt tolerating well at this time, will continue to monitor.
--- NOTE | 2019-11-19 18:18 | DIET.NUTRFU ---
Diet advanced today to ADA with diabetic supplements tid. He was able to eat 25% of first meal with fair tolerance, diarrhea. BG moderate- ~170. Total weight loss t/o stay of 8lb. Continuing to monitor.
--- NOTE | 2019-11-19 18:29 | PC.NURSE ---
PATIENT HAS HAD 5 WATERY STOOLS DURING THIS RN SHIFT, SAMPLE SENT FOR DIARRHEA PANEL AND OCCULT BLOOD. RESULTS FOR OCCULT WERE POSITIVE, DR. ISAAC NOTIFIED, NO NEW ORDERS. PATIENT HAS BEEN AWAKE FOR MOST OF THIS RN SHIFT. ABLE TO ANSWER AND ASK QUESTIONS. PATIENT ATE 25% OF LUNCH, POOR APPETITE, ATE WITH ENCOURAGEMENT. PATIENT CONTINUES TO BE WEAK AND HAS DIFFICULTLY LIFTING A FULL CUP TO HIS MOUTH. PATIENT DRANK 600ML DURING THIS RN SHIFT AND HAD ADEQUATE URINE OUTPUT. VITALS HAVE BEEN WNL. NO OTHER CONCERNS AT THIS TIME.
--- NOTE | 2019-11-19 20:23 | PC.NURSE ---
He is A&Ox4. He is very soft spoken at this time. Drinking PO fluids. Continues on Bipap 50% FiO2. Lung sounds diminished. Non-productive cough present. Scattered bruising on BUE and abdomen. Voiding per f/c. Urine is yellow, clear. Normal bowel sounds. Awaiting results of previous diarrhea panel. No BM thus far this shift. Afib with occasional PVCs on telemetry. Being turned and repositioned per staff. Continues in airborne and contact enteric precautions at this time.
[2019-11-20] VITALS (23 sets, daily range): BP systolic 104–159; BP diastolic 47–74; PULSE 63–124; RESP 8–38; TEMP 36.6–38.4; O2SAT 86–95; BMI 30.7
--- NOTE | 2019-11-20 00:14 | PC.NURSE ---
He has remained afebrile. 1 loose BM. He drank half of a strawberry glucerna at this time after being repositioned in bed.
[2019-11-20 05:59] LABS: Monocytes % 6.2 % (1.7-9.3)
[2019-11-20 06:01] LABS: Chloride 110 mmol/L (98-107); Potassium 3.8 mmoL/L (3.5-5.1); Sodium 144 mmol/L (136-145)
[2019-11-20 06:04] LABS: Alanine Aminotransferase 16 U/L (12-78); Albumin Level 2.6 g/dl (3.5-5.0); Albumin/Globulin Ratio 0.8 (1.1-1.8); Alkaline Phosphatase 65 U/L (38-126); Anion Gap 7.8 mEq/L (5-15); Aspartate Amino Transferase 32 U/L (17-59); Bilirubin,Total 1.2 mg/dl (0.2-1.3); Blood Urea Nitrogen 31 mg/dl (9-20); Calcium 8.2 mg/dl (8.4-10.2); Carbon Dioxide 30 mmol/L (22.0-30.0); Creatinine Clearance Estimated 90 mL/min (50-200); Estimated Glomerular Filt Rate 65 ml/min (>60); GFR (African American) 79 ML/MIN (>60); Globulin 3.2 g/dL (1.3-3.2); Glucose 131 mg/dl (74-100); Total Protein,Serum 5.8 g/dl (6.3-8.2)
--- NOTE | 2019-11-20 07:55 | PC.NURSE ---
magdiel mora provided documentation/ care on patient with my assistance/supervision. patient switched over to vapotherm at breakfast. did note slight coughing with drinks. after encouraging chin tuck patient noted to do better with drinking. md stated he would put in a chest xray and speech eval.
--- NOTE | 2019-11-20 08:07 | XR_ITS ---
PROCEDURE: XR CHEST PORTABLE CLINICAL HISTORY: f/u ards Shortness of breath COMPARISON: CR XR CHEST PORTABLE from 11/15/2019 CR XR CHEST PORTABLE from 11/16/2019 CR XR CHEST PORTABLE from 11/19/2019 FINDINGS: Cardiomegaly. Prior median sternotomy. Left subclavian central venous line is present with tip in the region the SVC. There remains consolidation in the lower lobes and right upper lobe consistent with bilateral pneumonia. This appears slightly worse in the right lower lobe. No evidence of pneumothorax or other new anomaly. No acute bony abnormalities. IMPRESSION: Cardiomegaly with bilateral pneumonia which appears slightly worse in the right lower lobe Dictated by: Vitor Barbosa MD 11/20/2019 08:38 Vitor Barbosa MD in [facility] 11/20/2019 08:38
--- NOTE | 2019-11-20 08:11 | HMH.ACPN2 ---
Internal Medicine - PN: Subj *Date: 11/20/19 *Time: 08:11 Interval history: Patient slept on BiPAP overnight, this morning has been transitioned to high flow Vapotherm and is doing well, is sitting up in the bed and interactive and more talkative than before. Exam Vital signs and Labs for Last 24 Hours: Temp Pulse Resp BP Pulse Ox 98.5 F 110 H 20 143/72 H 92 L 11/20/19 08:00 11/20/19 08:00 11/20/19 08:00 11/20/19 08:00 11/20/19 08:00 Laboratory Results - last 24 hr 11/19/19 11:09: POC Glucose 168 H 11/19/19 11:15: WBC 13.9 H, RBC 4.21 L, Hgb 12.6 L, Hct 38.0 L, MCV 90.4, MCH 29.9, MCHC 33.1, RDW 15.2, Plt Count 359, MPV 7.8, Neut % (Auto) 85.4 H, Lymph % (Auto) 8.8 L, [place] % (Auto) 4.5, Eos % (Auto) 1.0, Baso % (Auto) 0.2, Neut # (Auto) 11.9 H, Lymph # (Auto) 1.2, [place] # (Auto) 0.6, Eos # (Auto) 0.1, Baso # (Auto) 0.0, Total Counted 100, Neutrophils % (Manual) 82 H, Lymphocytes % (Manual) 12, Monocytes % (Manual) 5, Eosinophils % (Manual) 1, Platelet Estimate Normal, RBC Morphology Normal 11/19/19 11:15: PT 12.2 H, INR 1.11 H 11/19/19 11:15: Sodium 144, Potassium 4.5, Chloride 110 H, Carbon Dioxide 32 H, Anion Gap 6.5, BUN 29 H, Creatinine 1.00, Estimated Creat Clear 97, Estimated GFR 73, Est GFR ( Amer) 88, Glucose 172 H D, Calcium 8.5, Total Bilirubin 1.6 H, AST 38, ALT 18, Alkaline Phosphatase 68, Total Protein 5.9 L, Albumin 2.7 L, Globulin 3.2, Albumin/Globulin Ratio 0.8 L 11/19/19 15:00: Stool Occult Blood Positive A 11/19/19 16:05: POC Glucose 154 H 11/20/19 05:00: Sodium 144, Potassium 3.8, Chloride 110 H, Carbon Dioxide 30, Anion Gap 7.8, BUN 31 H, Creatinine 1.10, Estimated Creat Clear 90, Estimated GFR 65, Est GFR ( Amer) 79, Glucose 131 H D, Calcium 8.2 L, Total Bilirubin 1.2, AST 32, ALT 16, Alkaline Phosphatase 65, Total Protein 5.8 L, Albumin 2.6 L, Globulin 3.2, Albumin/Globulin Ratio 0.8 L 11/20/19 05:00: WBC 9.3 D, RBC 4.21 L, Hgb 12.3 L, Hct 41.3 L, MCV 98.2 H, MCH 29.2, MCHC 29.8 L, RDW 25.2 H* D, Plt Count 211 D, MPV 24.2 H, Neut % (Auto) 81.5 H, Lymph % (Auto) 11.1, [place] % (Auto) 6.2, Eos % (Auto) 1.1, Baso % (Auto) 9.8 H, Neut # (Auto) 7.6, Lymph # (Auto) 1.0, [place] # (Auto) 0.6, Eos # (Auto) 0.1, Baso # (Auto) 0.9 H I & O for Last 24 hours: Intake & Output 11/17/19 11/18/19 11/19/19 11/20/19 11:59 11:59 11:59 11:59 Intake Total 2435 / 2650 2489 / 2489 750 / 1230 1050 / 1050 Output Total 3640 / 3990 2480 / 2555 2591 / 3091 2529 / 2529 Balance -1205 / -1340 9 / -66 -1841 / -1861 -1479 / -1479 Weight 245 lb 2.464 oz 245 lb 5.992 oz 241 lb 2 oz 245 lb 1 oz Narrative: Patient is sitting up in the bed, eating well. Does have some coughing after eating. Lungs have some rhonchi in the bases but symmetric air entry. Heart rate regular in the low 90s. Blood pressure acceptable but on the low side of normal. Good distal perfusion. Abdomen soft. Patient is globally weak but has no focal neurologic deficits. Assessment and Plan (1) Bradycardia Status: Acute Category: Medical Code(s): R00.1 - Bradycardia, unspecified (2) Acute hypoxemic respiratory failure due to COVID-19 Status: Acute Category: Medical Code(s): U07.1 - COVID-19; J96.01 - Acute respiratory failure with hypoxia (3) Pneumonia due to COVID-19 virus Status: Acute Category: Medical Code(s): U07.1 - COVID-19; J12.89 - Other viral pneumonia (4) Obesity (BMI 30.0-34.9) Status: Acute Category: Medical Code(s): E66.9 - Obesity, unspecified (5) Type 2 diabetes mellitus Status: Acute Qualifiers: Diabetes mellitus snf insulin use: without snf use Diabetes mellitus complication status: with hyperglycemia Qualified Code(s): E11.65 - Type 2 diabetes mellitus with hyperglycemia Category: Medical Code(s): E11.9 - Type 2 diabetes mellitus without complications (6) Warfarin anticoagulation Status: Acute Category: Medical Code(s): Z79.01 - [facility] (current) use of
[2019-11-20 08:54] LABS: Hemoglobin 11.8 g/dL (14.1-18.0); Red Blood Count 3.43 M/mm3 (4.60-6.20); White Blood Count 11.7 K/mm3 (4.8-10.8)
[2019-11-20 08:55] LABS: Hematocrit 31.1 % (42.0-52.0); Mean Corpuscular HGB Conc 37.9 g/dL (31.8-35.4); Mean Corpuscular Hemoglobin 34.4 pg (27.0-31.2); Mean Corpuscular Volume 90.7 fl (80-94); Mean Platelet Volume 7.9 fl (7.4-10.4); Platelet Count 323 K/mm3 (142-424); Red Cell Distribution Width 15.1 % (11.5-17.5)
[2019-11-20 08:56] LABS: Basophils % 0.3 % (0.1-2.0); Eosinophils % 1.3 % (0.1-12.0); Neutrophils % 82.2 % (37.0-80.0)
[2019-11-20 08:57] LABS: Lymphocytes # 1.2 K/mm3 (0.7-4.5); Monocytes # 0.7 K/mm3 (0.1-1.0); Neutrophils # 9.6 K/mm3 (1.8-7.8)
[2019-11-20 08:58] LABS: Eosinophils # 0.2 K/mm3 (0.0-0.4)
--- NOTE | 2019-11-20 10:05 | HMH.PULMPN ---
Internal Medicine - PN: Subj *Date: 11/20/19 *Time: 14:41 Interval history: Respiratory status worsenig, Increasing oxygen reqorements. now at 100 % FiO2 saturating 88 to 89%. Good response to lasix yesterday. Exam Vital signs and Labs for Last 24 Hours: Temp Pulse Resp BP Pulse Ox 98.5 F 81 20 143/72 H 92 L 11/20/19 08:00 11/20/19 08:00 11/20/19 08:00 11/20/19 08:00 11/20/19 08:00 Laboratory Results - last 24 hr 11/19/19 11:09: POC Glucose 168 H 11/19/19 11:15: WBC 13.9 H, RBC 4.21 L, Hgb 12.6 L, Hct 38.0 L, MCV 90.4, MCH 29.9, MCHC 33.1, RDW 15.2, Plt Count 359, MPV 7.8, Neut % (Auto) 85.4 H, Lymph % (Auto) 8.8 L, [place] % (Auto) 4.5, Eos % (Auto) 1.0, Baso % (Auto) 0.2, Neut # (Auto) 11.9 H, Lymph # (Auto) 1.2, [place] # (Auto) 0.6, Eos # (Auto) 0.1, Baso # (Auto) 0.0, Total Counted 100, Neutrophils % (Manual) 82 H, Lymphocytes % (Manual) 12, Monocytes % (Manual) 5, Eosinophils % (Manual) 1, Platelet Estimate Normal, RBC Morphology Normal 11/19/19 11:15: PT 12.2 H, INR 1.11 H 11/19/19 11:15: Sodium 144, Potassium 4.5, Chloride 110 H, Carbon Dioxide 32 H, Anion Gap 6.5, BUN 29 H, Creatinine 1.00, Estimated Creat Clear 97, Estimated GFR 73, Est GFR ( Amer) 88, Glucose 172 H D, Calcium 8.5, Total Bilirubin 1.6 H, AST 38, ALT 18, Alkaline Phosphatase 68, Total Protein 5.9 L, Albumin 2.7 L, Globulin 3.2, Albumin/Globulin Ratio 0.8 L 11/19/19 15:00: Stool Occult Blood Positive A 11/19/19 16:05: POC Glucose 154 H 11/20/19 05:00: Sodium 144, Potassium 3.8, Chloride 110 H, Carbon Dioxide 30, Anion Gap 7.8, BUN 31 H, Creatinine 1.10, Estimated Creat Clear 90, Estimated GFR 65, Est GFR ( Amer) 79, Glucose 131 H D, Calcium 8.2 L, Total Bilirubin 1.2, AST 32, ALT 16, Alkaline Phosphatase 65, Total Protein 5.8 L, Albumin 2.6 L, Globulin 3.2, Albumin/Globulin Ratio 0.8 L 11/20/19 05:00: WBC 11.7 H, RBC 3.43 L, Hgb 11.8 L, Hct 31.1 L, MCV 90.7, MCH 34.4 H, MCHC 37.9 H, RDW 15.1, Plt Count 323, MPV 7.9, Neut % (Auto) 82.2 H, Lymph % (Auto) 10.0, [place] % (Auto) 6.2, Eos % (Auto) 1.3, Baso % (Auto) 0.3, Neut # (Auto) 9.6 H, Lymph # (Auto) 1.2, [place] # (Auto) 0.7, Eos # (Auto) 0.2, Baso # (Auto) 0.0 I & O for Last 24 hours: Intake & Output 11/17/19 11/18/19 11/19/19 11/20/19 23:59 23:59 23:59 23:59 Intake Total 2361 / 2361 1461 / 1561 1240 / 1240 610 / 610 Output Total 2315 / 2315 1980 / 2180 3385 / 3385 795 / 795 Balance 46 / 46 -519 / -619 -2145 / -2145 -185 / -185 Weight 245 lb 2.464 oz 245 lb 5.992 oz 241 lb 2 oz 245 lb 1 oz Radiology Reports for the Last 24 Hours: CXR showed worsening air space disease especially in Right lower lung serna - *Routine HEENT Exam Head: Present: normocephalic, atraumatic - *Routine Neck Exam Absent: lymphadenopathy, thyromegaly - *Routine Respiratory Exam Present: rhonchi. Absent: accessory muscle use, patient mechanically ventilated - *Routine Cardiovascular Exam Present: RRR, Normal S1, Normal S2 - *Routine Abdominal Exam Present: soft, normoactive bowel sounds. Absent: tenderness, distended, rebound - *Routine Extremities Exam Absent: cyanosis, clubbing, edema Assessment and Plan (1) Bradycardia Status: Acute Category: Medical Code(s): R00.1 - Bradycardia, unspecified (2) Acute hypoxemic respiratory failure due to COVID-19 Status: Acute Category: Medical Code(s): U07.1 - COVID-19; J96.01 - Acute respiratory failure with hypoxia (3) Pneumonia due to COVID-19 virus Status: Acute Category: Medical Code(s): U07.1 - COVID-19; J12.89 - Other viral pneumonia (4) Obesity (BMI 30.0-34.9) Status: Acute Category: Medical Code(s): E66.9 - Obesity, unspecified (5) Type 2 diabetes mellitus Status: Acute Qualifiers: Diabetes mellitus emt intermediate insulin use: without emt intermediate use Diabetes mellitus complication status: with hyperglycemia Qualified Code(s): E11.65 - Type 2 diabetes mellitus with hyperglycemia Category: Medical Code(s): E11.
--- NOTE | 2019-11-20 10:55 | HMH.PHACONS ---
- Pharmacy Consult Date: 11/20/19 Time: 10:56 Referring provider: DR. ISAAC Reason for Consult:: VANCOMYCIN DOSING Allergies and ADEs:: Allergies Allergy/AdvReac Type Severity Reaction Status Date / Time morphine Allergy Verified 09/07/19 09:57 nitroglycerin Allergy Verified 09/07/19 09:57 Home Medications:: Home Medications Medication Instructions Recorded Confirmed Type Warfarin Sodium 5 mg PO DAILY 01/15/18 11/09/19 History Digoxin 125 mcg PO DAILY 08/20/19 11/09/19 History [place]-3 Fatty Acids/Fish Oil [Fish 1 each PO DAILY 08/20/19 11/09/19 History Oil 1,000 mg Capsule] Rosuvastatin Calcium 20 mg PO DAILY 08/20/19 11/09/19 History carvediloL [Carvedilol 25mg Tab] 25 mg PO BID 08/20/19 11/09/19 History metformin 1,000 mg tablet 500 mg PO BID 09/07/19 11/09/19 History spironolactone 25 mg tablet 12.5 mg PO DAILY 90 Days #45 tab 09/07/19 11/09/19 Rx Aspirin [Aspirin 81mg EC Tab] 81 mg PO DAILY 11/10/19 11/10/19 History Nystatin [Nystatin Cr 100,000 0 gm TP TID 11/10/19 11/10/19 History Units/GM 30GM] lisinopriL [Lisinopril 10mg Tab] 10 mg PO DAILY 11/10/19 11/10/19 History Height: 1.9 m Weight: 111.158 kg Laboratory Results:: Laboratory Results - last 24 hr 11/19/19 11:09: POC Glucose 168 H 11/19/19 11:15: WBC 13.9 H, RBC 4.21 L, Hgb 12.6 L, Hct 38.0 L, MCV 90.4, MCH 29.9, MCHC 33.1, RDW 15.2, Plt Count 359, MPV 7.8, Neut % (Auto) 85.4 H, Lymph % (Auto) 8.8 L, [place] % (Auto) 4.5, Eos % (Auto) 1.0, Baso % (Auto) 0.2, Neut # (Auto) 11.9 H, Lymph # (Auto) 1.2, [place] # (Auto) 0.6, Eos # (Auto) 0.1, Baso # (Auto) 0.0, Total Counted 100, Neutrophils % (Manual) 82 H, Lymphocytes % (Manual) 12, Monocytes % (Manual) 5, Eosinophils % (Manual) 1, Platelet Estimate Normal, RBC Morphology Normal 11/19/19 11:15: PT 12.2 H, INR 1.11 H 11/19/19 11:15: Sodium 144, Potassium 4.5, Chloride 110 H, Carbon Dioxide 32 H, Anion Gap 6.5, BUN 29 H, Creatinine 1.00, Estimated Creat Clear 97, Estimated GFR 73, Est GFR ( Amer) 88, Glucose 172 H D, Calcium 8.5, Total Bilirubin 1.6 H, AST 38, ALT 18, Alkaline Phosphatase 68, Total Protein 5.9 L, Albumin 2.7 L, Globulin 3.2, Albumin/Globulin Ratio 0.8 L 11/19/19 15:00: Stool Occult Blood Positive A 11/19/19 16:05: POC Glucose 154 H 11/20/19 05:00: Sodium 144, Potassium 3.8, Chloride 110 H, Carbon Dioxide 30, Anion Gap 7.8, BUN 31 H, Creatinine 1.10, Estimated Creat Clear 90, Estimated GFR 65, Est GFR ( Amer) 79, Glucose 131 H D, Calcium 8.2 L, Total Bilirubin 1.2, AST 32, ALT 16, Alkaline Phosphatase 65, Total Protein 5.8 L, Albumin 2.6 L, Globulin 3.2, Albumin/Globulin Ratio 0.8 L 11/20/19 05:00: WBC 11.7 H, RBC 3.43 L, Hgb 11.8 L, Hct 31.1 L, MCV 90.7, MCH 34.4 H, MCHC 37.9 H, RDW 15.1, Plt Count 323, MPV 7.9, Neut % (Auto) 82.2 H, Lymph % (Auto) 10.0, [place] % (Auto) 6.2, Eos % (Auto) 1.3, Baso % (Auto) 0.3, Neut # (Auto) 9.6 H, Lymph # (Auto) 1.2, [place] # (Auto) 0.7, Eos # (Auto) 0.2, Baso # (Auto) 0.0 Medical History: Reports:: Aneurysm, Atherosclerotic Heart Disease, Atrial Fibrillation, Cancer, Coronary Artery Disease, Diabetes Mellitus Type 2, Hyperlipidemia, Hypertension, Peripheral Artery Disease, Peripheral Vascular Disease Denies:: Diabetes Mellitus Type 1, Internal Pacemaker, MRSA, Seizures Assessment and Plan (1) Bradycardia Status: Acute Category: Medical Code(s): R00.1 - Bradycardia, unspecified (2) Acute hypoxemic respiratory failure due to COVID-19 Status: Acute Category: Medical Code(s): U07.1 - COVID-19; J96.01 - Acute respiratory failure with hypoxia (3) Pneumonia due to COVID-19 virus Status: Acute Category: Medical Code(s): U07.1 - COVID-19; J12.89 - Other viral pneumonia (4) Obesity (BMI 30.0-34.9) Status: Acute Category: Medical Code(s): E66.9 - Obesity, unspecified (5) Type 2 diabetes mellitus Status: Acute Qualifiers: Diabetes mellitus terminal gauger insulin use: without chcf use Diabetes mellitus complication sta
--- NOTE | 2019-11-20 11:18 | PC.NURSE ---
speech therapy saw patient. no issues noted. encourage chin tuck with swallowing.
--- NOTE | 2019-11-20 13:19 | PC.NURSE ---
late entry. at [address] antonio about pulmonology recommendations. gave the okay to order the mrsa pcr, a sputum culture, restart the spironolactone 12.5 mg daily, start eliquis 5mg po bid, stop the lovenox, and to start vancomycin and cefepime to be dosed per pharmacy. orders were placed.
--- NOTE | 2019-11-20 14:37 | HMH.SLDYSPHA ---
Speech & Language Evaluation Speech/Language Dysphagia Evaluation Start: 11/20/19 14:32 Freq: ONCE Status: Active Protocol: Document 11/20/19 14:32 IOANA (Rec: 11/20/19 14:37 IOANA [email or web address]) Dysphagia Assess/Goals/Plan Assessment Date of Evaluation: 11/20/19 Evaluation Type Initial Certification Assessment/Problems Dysphagia Does Patient Qualify for Service No Qualify/Failure Comment No signs or symptoms of dysphagia were noted during evaluation Recommendations PHYSICIAN CERTIFICATION: The specified therapy services are required, authorized, and reviewed every 30 days. Diet Recommendations Normal Liquid Type Recommendations Normal/Thin SL Swallow Guidelines Standard Aspiration Prec. Dysphagia Swallow Precautions/Strategies Sitting Upright (90 deg),Chin Tuck,Small Bites and Sips, Alternate Liquids/Solids Plan Pt/Guardian verbally ack understanding Yes of dx/prognosis/goals G -code Required No Speech & Language HPI Language Primary Language [place]ian General Information General Current Food Consistancy Regular,Thin Liquids Dentition Good Dentition Oxygen Status Vapotherm Facial Symmetry Symmetrical Patient Orientation Person,Place,Time,Situation Ability to Follow Directions Excellent Communication Ability No Impairment Dysphagia:Food Presentation Evaluation Food Type Pureed,Mechanical Soft,Regular ,Liquid,Pudding Dysphagia Evaluation Summary Mr. Bledsoe was given the following consistencies: thins via straw and open cup, pudding, pureed, mechanical soft, regular, and pill with thin wash. No signs or symptoms of dysphagia were noted during evaluation. Patient naturally tucks his chin when drinking. RN reports he has been having him tuck his chin since coming of ventilator. Should problems continue, a MBS is recommended to rule out silent aspiration . Stroke Dysphagia Assessment PHYSICIAN CERTIFICATION: I certify the specified therapy services for Tao Bledsoe are required, authorized, and reviewed every 30 days.
--- NOTE | 2019-11-20 16:09 | PC.NURSE ---
PT IS A0*4, ABLE TO ANSWER QUESTINS AND FOLLOW COMMANDS, PT C/O CHAVEZ*1 THIS SHIFT, MEDICATED WITH PRN TYLENOL PER APR, EFFECTIVENESS NOTED, CENTRAL LINE STILL IN PLACE IN LEFT SUBCLAVIAN REGION, INTACT PATENT AND PINK, PT IS CURRENTLY EXPERIENCING CONTROLLED AFIB ON TELEMETRY WITH HR 70'S-80'S WITH PVC'S NOTED, PT LUNGS SOUNDS DIMINISHED ON AUSCULTATION, CURRENTLY ON VAPOTHERM FOR O2 SUPPORT. SETTING 40LPM @ 100% O2, PT HAS EPISODES OF DESATS IN WHICH O2 DROPS TO LOW 80'S ON CONTINUOUS PULSE OX, WHEN PT SLEEPING O2 HAS BEEN NOTED TO BE 95% AT TIMES, INTERMITTENT PRODUCTIVE COUGH NOTED, SPUTUM CULTURE OBTAINED, PT STILL HAS A POOR APPETITE AT THIS TIME, ONLY ABLE TO EAT AROUND 25% OF MEALS, PT INTAKE OF WATER HAS BEEN INCREASED TODAY, HE WILL ASK FOR WATER EVERYTIME THIS NURSE ENTERS THE ROOM, PT HAS HAD ONE EPISODE OF DIARRHEA T/O SHIFT, AT THIS TIME PT IS INCONTINENT OF BOWEL R/T WEAKNESS, CROUCH CATH STILL IN PLACE, DRAINING CLEAR YELLOW URINE, ABD IS SOFT AND NON-TENDER, EXCORIATION NOTED TO BUTTOCKS, SCROTUM, AND INNER THIGH BILATERALLY, BARRIER CREAM APPLIED, SITE HAS BEEN KEPT C/D/I T/O SHIFT, BED LINENS HAVE BEEN CHANGED THIS SHIFT, PT HAS BEEN TURNED Q2 HOURS, VSS AT THIS TIME, WILL CONTINUE TO MONITOR.
[2019-11-20 18:26] LABS: POC Glucose,Bedside 116 (70-110)
[2019-11-20 18:26] LABS: POC Glucose,Bedside 131 (70-110)
[2019-11-20 18:26] LABS: POC Glucose,Bedside 144 (70-110)
[2019-11-20 18:26] LABS: POC Glucose,Bedside 108 (70-110)
--- NOTE | 2019-11-20 20:39 | PC.NURSE ---
2030 dr. antonio notified of increase in o2 demand, on bipap with sats 85% on 60^ fio2, resp rate 35-40 bpm. need to increase fio2 again. accessory muscle usage and labored breathing pattern. breath sound diminished throughout all serna. left remains more diminished than right but over all more diminished than assessment on tuesday archeologist. new orders received for lasix 40 mg ivp now, and rt in crease pressures and fio2 to maintain sats greater than 88%.
--- NOTE | 2019-11-20 20:42 | PC.NURSE ---
2034 lasix 49 mg ivp given, rt increased fio2 to 100%.
--- NOTE | 2019-11-20 20:42 | PC.NURSE ---
carleen currently sats 93% on 100% fio2 with resp rate 38-40bpm.
--- NOTE | 2019-11-20 20:56 | PC.NURSE ---
this rn arrived on floor at 1900 monitor car operator shows sats sustaining 85% on vapotherm, rt notified by offgoing shift. bipap place on patient at 50 percent fio2. sats returned to low 90s
--- NOTE | 2019-11-20 20:59 | PC.NURSE ---
1930 initial assessment. patient more awake,alert and stronger than previous previous tuesday cane burner. patient respiratory status appears more labored with respiratory rate sustaining greater than 30 on bipap sats currently low 90s on bipap. patient denies soa. breath sounds diminished with crackles throughout all serna, left remains more diminished than right but overall all serna auscultate more diminished than on previous tuesday cane burner. row boss show afib 90s to low 100s with pvcs. bowel sounds active throughout all quadrants. maddox to gravity draining clear yellow urine.
--- NOTE | 2019-11-20 21:04 | PC.NURSE ---
2100 patient sats return to 95% with resp rate greater than 30. patient placed on nc to administer 2100 meds. only able to get two tylenol and coreg down before patient desats to 72%, bipap placed with current settings of 100% fio2, sats return to low 90s within 5 min but rr remain greater than 30bpm.
--- NOTE | 2019-11-20 21:19 | PC.NURSE ---
1930 patient complaining of chilling, temp taed axillary 99.9
--- NOTE | 2019-11-20 21:20 | PC.NURSE ---
temp rechecked after tylenol given 102.2 axillary. patient denies any further chilling.
[2019-11-20 21:25] LABS: POC Glucose,Bedside 114 (70-110)
--- NOTE | 2019-11-20 22:37 | PC.NURSE ---
2200 patient reposition to left side with angle greater than 40%, sats remain 92% on 100 % fio2, rr 35. bilateral lower extremities arranged to promote air circulation around excoriated areas. appears improved, left red and hot than at beginning of shift.
--- NOTE | 2019-11-20 22:41 | PC.NURSE ---
2000 patient lower extremities areas with bilateral knees bent and on billows for support with bilateral lower extremities with scrotum elevated more maximum air circulation.
--- NOTE | 2019-11-20 23:07 | PC.NURSE ---
patient breath sounds remain course and diminished, sats have remained at 94% fio2, rr is decreasing to lower 30s, fio2 on bipap decreased to 90%. urinary output greater than 1000ml since lasix administered.
--- NOTE | 2019-11-20 23:47 | PC.NURSE ---
have been able to give remaining po pills.
[2019-11-21] VITALS (29 sets, daily range): BP systolic 106–153; BP diastolic 54–84; PULSE 80–109; RESP 8–42; TEMP 36.8–37.9; O2SAT 74–99; BMI 30.7
--- NOTE | 2019-11-21 00:11 | PC.NURSE ---
patient repositioned to right side at 45 degree angle. sats 95%, rr 32-38, breathing pattern less labored, o2 sats 95% on 80% fio2 on bipap. bilateral lower extremities with one knee elevated and scrotum elevated for maximum airflow.
--- NOTE | 2019-11-21 00:27 | PC.NURSE ---
patient sustaining 96-97 with rr of 34 bpm on 80% fio2 on bipap. fio2 decreased to 70% fio2
[2019-11-21 01:03] LABS: POC Glucose,Bedside 121 (70-110)
--- NOTE | 2019-11-21 01:17 | PC.NURSE ---
patient sustaining 95-96% sats on 70% fio2, rr 32-36. brathing less labored than beginning of shift.
--- NOTE | 2019-11-21 01:45 | PC.NURSE ---
patient repositioned back to left side at 45 degree angle. bipap on 60% fio2 was sating 93% prior to turn. patients sats dropped to 86 and sustained for 10 min with respiratory rate 44-46 bprm . fio2 increased back up to 70%. sats returned to 90% and bpm decreased to 36. [id number] remained diminished but less diminished than at beginning of shift. breathing pattern less labored as well.
--- NOTE | 2019-11-21 02:20 | PC.NURSE ---
0117 fio2 decreased to 60% fio2 has been maintaining sats greater than 94%
--- NOTE | 2019-11-21 03:23 | PC.NURSE ---
0300 linens changed and patient pulled up in bed, sats 88% on 70% fio2, resp rate 44 with activity. patient left in supine position with bilateral lower extremities and scrotum elevated for maximum air flow in genital area. excoriation improved from beginning of shift. sats returned to 92% with respiratory rate 34.
--- NOTE | 2019-11-21 04:35 | PC.NURSE ---
triple lumen catheter aspirating blood from distal port with difficulty. head turned to right side able to aspirate.
[2019-11-21 04:47] LABS: Chloride 107 mmol/L (98-107); Potassium 3.8 mmoL/L (3.5-5.1); Sodium 140 mmol/L (136-145)
[2019-11-21 04:49] LABS: Blood Urea Nitrogen 29 mg/dl (9-20); Creatinine Clearance Estimated 90 mL/min (50-200); Estimated Glomerular Filt Rate 65 ml/min (>60); GFR (African American) 79 ML/MIN (>60)
[2019-11-21 04:50] LABS: Anion Gap 8.8 mEq/L (5-15); Carbon Dioxide 28 mmol/L (22.0-30.0); Glucose 121 mg/dl (74-100)
[2019-11-21 05:20] LABS: Basophils # 0.1 K/mm3 (0-0.2); Basophils % 0.4 % (0.1-2.0); Eosinophils # 0.2 K/mm3 (0.0-0.4); Eosinophils % 0.9 % (0.1-12.0); Hematocrit 38.5 % (42.0-52.0); Hemoglobin 12.1 g/dL (14.1-18.0); Lymphocytes # 1.7 K/mm3 (0.7-4.5); Mean Corpuscular HGB Conc 31.4 g/dL (31.8-35.4); Mean Corpuscular Hemoglobin 28.4 pg (27.0-31.2); Mean Corpuscular Volume 90.5 fl (80-94); Mean Platelet Volume 7.5 fl (7.4-10.4); Monocytes # 0.9 K/mm3 (0.1-1.0); Monocytes % 5.2 % (1.7-9.3); Neutrophils # 13.9 K/mm3 (1.8-7.8); Neutrophils % 83.5 % (37.0-80.0); Platelet Count 350 K/mm3 (142-424); Red Blood Count 4.25 M/mm3 (4.60-6.20); Red Cell Distribution Width 15.1 % (11.5-17.5); White Blood Count 16.7 K/mm3 (4.8-10.8)
[2019-11-21 05:24] LABS: MANUAL DIFFERENTIAL MANUAL DIFFERENTIAL (MANUAL DIFF)
[2019-11-21 05:53] LABS: Lymphocytes % 12 % (10-50); Monocytes % 4 % (2-9); Neutrophils % 83 % (42-76); Total Cells Counted 100
[2019-11-21 05:54] LABS: Ovalocytes 1+; Platelet Estimate Normal
--- NOTE | 2019-11-21 06:11 | PC.NURSE ---
shift summary patient remains on 70% fio2 with sats sustaining 92-94 and rr 32-36. breath sounds diminished throughout all serna. patients breathing pattern has been labored throughout night but improved significantly from beginning of shift. have been able to titrate fio2 back down as well. patient desats with any activity and oral care. oral care performed q 2hrs as well as turning. night monitor has shown afib 80s to low 100s. maddox to gravity remains patent draining clear yellow urine. no bowel movements noted this shift. urine output approximately 2000 ml.
--- NOTE | 2019-11-21 06:46 | PC.NURSE ---
shift summary . patient coughs with any oral intake
--- NOTE | 2019-11-21 07:52 | PC.NURSE ---
called and spoke with lab about diarrhea panel. stated that it had to be sent out so results were not back yet.
--- NOTE | 2019-11-21 09:55 | PC.NURSE ---
dr. mas stating he does not want patient to go on bipap. stated to try and maintain sats 88% and greater. if he maintains lower to let them know. stated he would reround later.
--- NOTE | 2019-11-21 11:02 | HMH.ACPN2 ---
Internal Medicine - PN: Subj *Date: 11/21/19 *Time: 08:20 Interval history: Patient placed on BiPAP overnight, did fairly well with this, this morning is off BiPAP back on high flow oxygen to eat breakfast, states that he is feeling some better, alert and communicative. Exam Vital signs and Labs for Last 24 Hours: Temp Pulse Resp BP Pulse Ox 99.7 F H 82 30 H 106/54 L 87 L 11/21/19 07:26 11/21/19 09:54 11/21/19 09:54 11/21/19 09:54 11/21/19 09:54 Laboratory Results - last 24 hr 11/19/19 05:39: POC Glucose 121 H 11/19/19 20:06: POC Glucose 108 11/20/19 05:01: POC Glucose 116 H 11/20/19 11:21: POC Glucose 144 H 11/20/19 16:05: POC Glucose 131 H 11/20/19 21:14: POC Glucose 114 H 11/21/19 04:30: WBC 16.7 H D, RBC 4.25 L, Hgb 12.1 L, Hct 38.5 L, MCV 90.5, MCH 28.4, MCHC 31.4 L, RDW 15.1, Plt Count 350, MPV 7.5, Neut % (Auto) 83.5 H, Lymph % (Auto) 10.0, [place] % (Auto) 5.2, Eos % (Auto) 0.9, Baso % (Auto) 0.4, Neut # (Auto) 13.9 H, Lymph # (Auto) 1.7, [place] # (Auto) 0.9, Eos # (Auto) 0.2, Baso # (Auto) 0.1, Total Counted 100, Neutrophils % (Manual) 83 H, Lymphocytes % (Manual) 12, Monocytes % (Manual) 4, Basophils % (Manual) 1.0, Platelet Estimate Normal, Ovalocytes 1+ 11/21/19 04:30: Sodium 140, Potassium 3.8, Chloride 107, Carbon Dioxide 28, Anion Gap 8.8, BUN 29 H, Creatinine 1.10, Estimated Creat Clear 90, Estimated GFR 65, Est GFR ( Amer) 79, Glucose 121 H, Calcium 8.0 L I & O for Last 24 hours: Intake & Output 11/18/19 11/19/19 11/20/19 11/21/19 11:59 11:59 11:59 11:59 Intake Total 2489 / 2489 750 / 1230 1410 / 1410 350 / 350 Output Total 2480 / 2555 2591 / 3091 2529 / 2529 1925 / 1925 Balance 9 / -66 -1841 / -1861 -1119 / -1119 -1575 / -1575 Weight 245 lb 5.992 oz 241 lb 2 oz 245 lb 1 oz 244 lb 4.355 oz Microbiology Reports for the Last 24 Hours: Microbiology 11/20/19 11:00 Sputum - Expectorated Sputum Gram Stain - Final 11/20/19 11:00 Sputum - Expectorated Sputum Sputum Culture - Preliminary Narrative: Heart rate regular, blood pressure slightly low. Abdomen soft, Lungs have rhonchi in both air serna. Some labored breathing. No JVD. Distal perfusion is good. Assessment and Plan (1) Bradycardia Status: Acute Category: Medical Code(s): R00.1 - Bradycardia, unspecified (2) Acute hypoxemic respiratory failure due to COVID-19 Status: Acute Category: Medical Code(s): U07.1 - COVID-19; J96.01 - Acute respiratory failure with hypoxia (3) Pneumonia due to COVID-19 virus Status: Acute Category: Medical Code(s): U07.1 - COVID-19; J12.89 - Other viral pneumonia (4) Obesity (BMI 30.0-34.9) Status: Acute Category: Medical Code(s): E66.9 - Obesity, unspecified (5) Type 2 diabetes mellitus Status: Acute Qualifiers: Diabetes mellitus fdc insulin use: without bed bug exterminator use Diabetes mellitus complication status: with hyperglycemia Qualified Code(s): E11.65 - Type 2 diabetes mellitus with hyperglycemia Category: Medical Code(s): E11.9 - Type 2 diabetes mellitus without complications (6) Warfarin anticoagulation Status: Acute Category: Medical Code(s): Z79.01 - technician terminal and repeater (current) use of anticoagulants (7) Atrial fibrillation Status: Chronic Qualifiers: Atrial fibrillation type: longstanding persistent Qualified Code(s): I48.11 - Longstanding persistent atrial fibrillation Category: Medical Code(s): I48.91 - Unspecified atrial fibrillation (8) CAD (coronary artery disease) Status: Chronic Qualifiers: Coronary Disease-Associated Artery/Lesion type: bypass graft [place] vs. transplanted heart: [place] heart Associated angina: without angina Qualified Code(s): I25.810 - Atherosclerosis of coronary artery bypass graft(s) without angina pectoris Category: Medical Code(s): I25.10 - Atherosclerotic heart disease of [place] coronary artery without angina pectoris (9) HLD (hyperlipidemia) Status: Ch
[2019-11-21 11:34] LABS: POC Glucose,Bedside 146 (70-110)
--- NOTE | 2019-11-21 13:03 | PC.NURSE ---
at [address] antonio that it was oay to switch nystatin over to powder and the potassium liquid to tablet so that it was easier for patient to take. md also ordered mucomyst inhalation TID. at [address] antonio that patient bp was on lower end which is different from his base line systolic 90-low 100s. md stated to change his coreg dose to 12.5mg. [address] mas that patient appeared more tired, stating he was a little more short of breath continuing to breath 30-40 a minute. patient even admitting to feeling exhausted. on vapotherm when asleep sats 88-92. with any exertion or drinks noted sats low 80s. he stated to place patient back over onto the bipap to rest with a setting of 12/6. notified respiratory of this. patient currently resting. has had 1 mucous like bm as of now. lungs remain diminished. heart rate 70-80s. current o2 sats on 100% bipap are 98%, patient states he does feel better with the bipap on. some complaints of headache this shift and medicated per mar. did also notify patient daughter of the possibility of patient being intubated again if he continues to struggle. daughter voiced understanding and asked to be kept updated.
--- NOTE | 2019-11-21 14:37 | HMH.PULMPN ---
Internal Medicine - PN: Subj *Date: 11/21/19 *Time: 14:37 Interval history: Patient respiratory status relatively remained stable. Exam Vital signs and Labs for Last 24 Hours: Temp Pulse Resp BP Pulse Ox 98.9 F 90 29 H 109/61 L 97 11/21/19 11:57 11/21/19 13:37 11/21/19 13:37 11/21/19 13:37 11/21/19 13:37 Laboratory Results - last 24 hr 11/19/19 05:39: POC Glucose 121 H 11/19/19 20:06: POC Glucose 108 11/20/19 05:01: POC Glucose 116 H 11/20/19 11:21: POC Glucose 144 H 11/20/19 16:05: POC Glucose 131 H 11/20/19 21:14: POC Glucose 114 H 11/21/19 04:30: WBC 16.7 H D, RBC 4.25 L, Hgb 12.1 L, Hct 38.5 L, MCV 90.5, MCH 28.4, MCHC 31.4 L, RDW 15.1, Plt Count 350, MPV 7.5, Neut % (Auto) 83.5 H, Lymph % (Auto) 10.0, [place] % (Auto) 5.2, Eos % (Auto) 0.9, Baso % (Auto) 0.4, Neut # (Auto) 13.9 H, Lymph # (Auto) 1.7, [place] # (Auto) 0.9, Eos # (Auto) 0.2, Baso # (Auto) 0.1, Total Counted 100, Neutrophils % (Manual) 83 H, Lymphocytes % (Manual) 12, Monocytes % (Manual) 4, Basophils % (Manual) 1.0, Platelet Estimate Normal, Ovalocytes 1+ 11/21/19 04:30: Sodium 140, Potassium 3.8, Chloride 107, Carbon Dioxide 28, Anion Gap 8.8, BUN 29 H, Creatinine 1.10, Estimated Creat Clear 90, Estimated GFR 65, Est GFR ( Amer) 79, Glucose 121 H, Calcium 8.0 L 11/21/19 11:22: POC Glucose 146 H I & O for Last 24 hours: Intake & Output 11/18/19 11/19/19 11/20/19 11/21/19 23:59 23:59 23:59 23:59 Intake Total 1461 / 1561 1240 / 1240 960 / 960 120 / 120 Output Total 1979 / 2180 3385 / 3385 2720 / 2720 Balance -519 / -619 -2145 / -2145 -1760 / -1760 119 / 119 Weight 245 lb 5.992 oz 241 lb 2 oz 245 lb 1 oz 244 lb 4.355 oz Microbiology Reports for the Last 24 Hours: Microbiology 11/20/19 11:00 Sputum - Expectorated Sputum Gram Stain - Final 11/20/19 11:00 Sputum - Expectorated Sputum Sputum Culture - Preliminary - *Routine HEENT Exam Head: Present: normocephalic, atraumatic - *Routine Neck Exam Present: supple. Absent: lymphadenopathy, thyromegaly - *Routine Respiratory Exam Present: crackles, distant breath sounds, diminished air movement. Absent: accessory muscle use, CTA bilaterally - *Routine Cardiovascular Exam Present: Normal S1, Normal S2 - *Routine Abdominal Exam Present: soft, normoactive bowel sounds. Absent: tenderness, distended - *Routine Extremities Exam Absent: cyanosis, clubbing, edema Assessment and Plan (1) Bradycardia Status: Acute Category: Medical Code(s): R00.1 - Bradycardia, unspecified (2) Acute hypoxemic respiratory failure due to COVID-19 Status: Acute Category: Medical Code(s): U07.1 - COVID-19; J96.01 - Acute respiratory failure with hypoxia (3) Pneumonia due to COVID-19 virus Status: Acute Category: Medical Code(s): U07.1 - COVID-19; J12.89 - Other viral pneumonia (4) Obesity (BMI 30.0-34.9) Status: Acute Category: Medical Code(s): E66.9 - Obesity, unspecified (5) Type 2 diabetes mellitus Status: Acute Qualifiers: Diabetes mellitus intermodal dispatcher insulin use: without [facility] use Diabetes mellitus complication status: with hyperglycemia Qualified Code(s): E11.65 - Type 2 diabetes mellitus with hyperglycemia Category: Medical Code(s): E11.9 - Type 2 diabetes mellitus without complications (6) Warfarin anticoagulation Status: Acute Category: Medical Code(s): Z79.01 - termite control servicer (current) use of anticoagulants (7) Atrial fibrillation Status: Chronic Qualifiers: Atrial fibrillation type: longstanding persistent Qualified Code(s): I48.11 - Longstanding persistent atrial fibrillation Category: Medical Code(s): I48.91 - Unspecified atrial fibrillation (8) CAD (coronary artery disease) Status: Chronic Qualifiers: Coronary Disease-Associated Artery/Lesion type: bypass graft [place] vs. transplanted heart: [place] heart Associated angina: without angina Qualified Code(s): I25.810 - Atherosclerosis of cor
[2019-11-21 15:48] LABS: MRSA DNA PCR Negative (Negative)
[2019-11-21 16:48] LABS: POC Glucose,Bedside 118 (70-110)
--- NOTE | 2019-11-21 16:58 | PC.NURSE ---
spoke with dr mas, did let him now patient continues to breathe fast 30s. no desats on bipap at this time remains 93-99% on the bipap. patient asked how is my breathing relayed to him sats are good but he continues to breathe fast/labored. patient states he doesn't feel short of breath and its fine md stated to continue the bipap at this time. if patient shows no improvement by morning may need to be reintubated. stated at this time remain on bipap tonight unless he clinically declines. patient appears tired, and has been resting okay this shift. has been turned frequently, and nystatin applied to scrotum and buttocks. excoriation appears better since yesterday. patient mental status remains intact. heart rate has been 70-80s. lung sounds remain diminished through out. bp has been within normal limits for patient. continues to throw some pvcs on monitor. has requested frequents sips of water. mouth care provided. washed face and bottom. rings out as needed. less sputum production this shift. will continue to monitor.
--- NOTE | 2019-11-21 17:31 | PC.NURSE ---
called patient daughter and at this time so that patient could speak with them. also educated family on the option to facetime the patient. let them know about the fadi
--- NOTE | 2019-11-21 17:48 | PC.NURSE ---
spoke with dr antonio, stated to order cbc, bmp and chest xray. also asked to allow daughter and to come and see the patient if they wished
--- NOTE | 2019-11-21 18:20 | DIET.NUTRFU ---
PO intake 25% with fair intake tid supplements. Fair-well toleration. Did refuse lunch today. BG are moderate- ~125. Weight is stable.
--- NOTE | 2019-11-21 20:10 | PC.NURSE ---
initial assessment patient breathing effort extremely labored, accessory muscle usage and abdominal breathing. breath sounds more diminished than previous night especially on left side. sats 92% on 100% fio2 bipap with respiratory rate of 41. physicians aware of respiratory status. patient awake alert and oriented. production recorder shows afib 80s to 100s. maddox to gravity draining clear yellow urine. mason area excoriated, improved from previous night. nystatin powder applied, bilateral lower extremities with scrotum elevated for maximum air flow.
--- NOTE | 2019-11-21 23:11 | PC.NURSE ---
patient turn to left side at 45 degree angle, patient desats to lower 80s with any activity or oral intake. breathing pattern slightly less labored than at the beginning of the shift. bilateral lower extremities and scrotum elevated. area coated with nystatin powder.
--- NOTE | 2019-11-21 23:33 | PC.NURSE ---
dr. thorne notified of respiratory status and increased anxiety. stated he will look at the chart.
--- NOTE | 2019-11-21 23:36 | XR_ITS ---
PROCEDURE: XR CHEST PORTABLE CLINICAL HISTORY: sob Pneumonia COMPARISON: CR XR CHEST PORTABLE from 11/16/2019 CR XR CHEST PORTABLE from 11/19/2019 CR XR CHEST PORTABLE from 11/20/2019 FINDINGS: Cardiomegaly. Prior CABG. Bilateral lower lobe pneumonia probably unchanged given the difference in inspiration.. Infiltrate also noted in the right upper lobe unchanged. Left subclavian central venous line present with the tip in the region the SVC. No acute bony abnormalities. IMPRESSION: Low lung volumes with cardiomegaly and diffuse bilateral pneumonia probably unchanged Dictated by: Vitor Barbosa MD 11/22/2019 05:44 Vitor Barbosa MD in [facility] 11/22/2019 05:44
[2019-11-22] VITALS (42 sets, daily range): BP systolic 78–136; BP diastolic 46–79; PULSE 72–138; RESP 8–42; TEMP 37.8–38.4; O2SAT 83–98
--- NOTE | 2019-11-22 00:26 | PC.NURSE ---
new orders received and carried out for stat pcxr. as well as ativan 0.5 mg ivp now for anxiety
--- NOTE | 2019-11-22 01:10 | PC.NURSE ---
2330 patient respiratory rate remains in the low 40s with sats in the low 90's on 100% fio2. breath sounds remain diminished and course throughout all serna more so on the left. first beater continues to shows afib in the 80s to low 100s. patient exhibits more anxiety than previously, admits that he is starting to feel nervous.
--- NOTE | 2019-11-22 01:13 | PC.NURSE ---
patient states than he is feeling better, resting at times with eyes closed. environmental monitoring technician continues to show afib 80s to low 100s. sats now 95% on 100% fio2 on bipap. resp rate now 39-40.
--- NOTE | 2019-11-22 02:57 | PC.NURSE ---
patient rested well for about an hour and a half after receiving 0.5 mg of ativan ivp. since patient awakened sats have been sustaining 89-90% on 100% fio2 on bipap. rr sustaining 40-45. breathing effort and accessory muscle usage has increased. patient appears exhausted. color is beginning to look dusky. dr. thorne notified.
--- NOTE | 2019-11-22 03:21 | PC.NURSE ---
dr thorne at bedside, patient assessed, no new orders at this time.
--- NOTE | 2019-11-22 03:32 | PC.NURSE ---
[address] to have [address] thorne come up to assess ted maurice notified and respiratory already at bedside.
--- NOTE | 2019-11-22 06:00 | XR_ITS ---
PROCEDURE: XR CHEST PORTABLE CLINICAL HISTORY: asses progression of pneumonia, labored breathing COMPARISON: CR XR CHEST PORTABLE from 11/19/2019 CR XR CHEST PORTABLE from 11/20/2019 CR XR CHEST PORTABLE from 11/22/2019 FINDINGS: Cardiomegaly. Bilateral pneumonia once again noted not significantly changed considering the better inspiration on this study compared to the most recent exam. No significant change compared to an older study of 11/20/2019. There has been a prior median sternotomy. Left subclavian central venous line remains in place. IMPRESSION: Stable bilateral pneumonia Dictated by: Vitor Barbosa MD 11/22/2019 08:49 Vitor Barbosa MD in [facility] 11/22/2019 08:49
[2019-11-22 06:01] LABS: POC Glucose,Bedside 107 (70-110)
--- NOTE | 2019-11-22 06:18 | PC.NURSE ---
Pt tolerating BiPAP well at this time. See flow sheet for settings. Will continue to monitor. Actual pressure IPAP 13 EPAP 5 RR 40 bpm SPO2 94% Minute Ventilation 28 Leak 18 Alarms High Pressure 45 Low Pressure 8 High RR 50 Low RR 8 Low Minute Ventilation 3 Apnea 20 seconds
--- NOTE | 2019-11-22 06:18 | PC.NURSE ---
patient rested on and off after dr. thorne's assessment. while sleeping patient continues to breath 40-5 bpm, sats 95% on 100% fio2 on bipap. when awake patient sustains breaths 4-48 bpm, with sats 89-93% on 100% fio2 bipap. breathing pattern remains very labored, with accessory muscle usage. color has become less dusky breath sounds have remained course and diminished throughout all serna, left remains more diminished than right. patient speech pattern has become more soft spoken and dyspneic. alarm security or surveillance monitor has shown afib with rate from 80-100s. maddox draining clear yellow urine, no bowel movements noted this shift. pcxr done this am . unable to draw blood from central line or obtain blood peripherally. will have lab draw specimen.
[2019-11-22 07:34] LABS: Chloride 107 mmol/L (98-107); Sodium 141 mmol/L (136-145)
[2019-11-22 07:38] LABS: Blood Urea Nitrogen 24 mg/dl (9-20); Calcium 8.3 mg/dl (8.4-10.2); Carbon Dioxide 28 mmol/L (22.0-30.0); Creatinine Clearance Estimated 80 mL/min (50-200); Estimated Glomerular Filt Rate 59 ml/min (>60); GFR (African American) 71 ML/MIN (>60); Glucose 119 mg/dl (74-100)
[2019-11-22 08:01] LABS: Basophils # 0.1 K/mm3 (0-0.2); Basophils % 0.4 % (0.1-2.0); Eosinophils # 0.1 K/mm3 (0.0-0.4); Eosinophils % 0.6 % (0.1-12.0); Hematocrit 37.1 % (42.0-52.0); Hemoglobin 11.4 g/dL (14.1-18.0); Lymphocytes # 1.4 K/mm3 (0.7-4.5); Lymphocytes % 8.4 % (10-50); Mean Corpuscular HGB Conc 30.7 g/dL (31.8-35.4); Mean Corpuscular Hemoglobin 28.3 pg (27.0-31.2); Mean Corpuscular Volume 92.1 fl (80-94); Mean Platelet Volume 7.4 fl (7.4-10.4); Monocytes # 0.6 K/mm3 (0.1-1.0); Monocytes % 3.5 % (1.7-9.3); Neutrophils # 14.8 K/mm3 (1.8-7.8); Platelet Count 307 K/mm3 (142-424); Red Blood Count 4.03 M/mm3 (4.60-6.20); Red Cell Distribution Width 15.1 % (11.5-17.5)
[2019-11-22 08:08] LABS: MANUAL DIFFERENTIAL MANUAL DIFFERENTIAL (MANUAL DIFF)
[2019-11-22 08:37] LABS: Lymphocytes % 8 % (10-50); Monocytes % 4 % (2-9); Neutrophils % 88 % (42-76); Platelet Estimate Normal; RBC Morphology Normal; Total Cells Counted 100
--- NOTE | 2019-11-22 08:56 | PC.NURSE ---
Temp of 101.1 rectally. Tylenol given. Blankets removed, leaving thin sheet. Will recheck.
--- NOTE | 2019-11-22 10:24 | XR_ITS ---
PROCEDURE: XR CHEST PORTABLE CLINICAL HISTORY: Post intubation , Pneumonia COMPARISON: CR XR CHEST PORTABLE from 11/20/2019 CR XR CHEST PORTABLE from 11/22/2019 CR XR CHEST PORTABLE from 11/22/2019 FINDINGS: Cardiomegaly. Prior median sternotomy. Left subclavian central venous line tip is in the region the SVC. Endotracheal tube has been inserted. The tip is in good position at the T4-T5 level. Nasogastric tube is present but the tip is not readily identified possibly at the GE junction. Suggest pushing the in G-tube in 4-5 more cm and repeating upper abdomen/lower chest. There is diffuse bilateral alveolar disease consistent with pneumonia which appears slightly worse. There may be a small left effusion. IMPRESSION: Endotracheal tube is in good position. NG tube tip appears to be at the GE junction and could be pushed in 4-5 more cm with repeating exam for confirmation Diffuse bilateral pneumonia. Dictated by: Vitor Barbosa MD 11/22/2019 10:59 Vitor Barbosa MD in [facility] 11/22/2019 10:59
[2019-11-22 10:52] LABS: ABG Base Excess -2.7 mmol/L (-2.4-2.3); ABG HCO3 23.4 mmhg (22.0-26.0); ABG Oxygen Saturation 97 % (90-100); ABG PCO2 46.8 mmhg (35.0-45.0); ABG PH 7.32 mmol/L (7.35-7.45); ABG PO2 108.9 mmhg (80-100); ABG TCO2 24.8 mmhg (23-27)
[2019-11-22 10:53] LABS: Allen's Test ACCEPTABLE; Oxygen 100 %; PEEP 12; Source R RADIAL; Tidal Volume 480; Vent Rate 22
[2019-11-22 11:11] LABS: POC Glucose,Bedside 100 (70-110)
--- NOTE | 2019-11-22 12:16 | XR_ITS ---
PROCEDURE: XR CHEST PORTABLE CLINICAL HISTORY: NG placement COMPARISON: CR XR CHEST PORTABLE from 11/09/2019 CR XR CHEST PORTABLE from 11/13/2019 CR XR CHEST PORTABLE from 11/14/2019 CR XR CHEST PORTABLE from 11/15/2019 CR XR CHEST PORTABLE from 11/16/2019 CR XR CHEST PORTABLE from 11/20/2019 CR XR CHEST PORTABLE from 11/22/2019 CR XR CHEST PORTABLE from 11/22/2019 CR XR CHEST PORTABLE from 11/22/2019 FINDINGS: There has been interval development of a medium-sized right pneumothorax occupying at least 50 percent of the total lung volume. The mediastinum is slightly deviated toward the left. There is cardiomegaly with diffuse bilateral pneumonia. Endotracheal tube tip is in good position 5 cm above the lady. Left subclavian central venous line is present with tip in the region the SVC. Nasogastric tube tip is in the region of the body of the stomach. IMPRESSION: 1. Interval development of right-sided pneumothorax. 2. Tubes and lines in good position. 3. Diffuse bilateral pneumonia 4. The ICU nurse Fawn gonzalez notified of the above findings by telephone 11/22/2019 at 12:40 p.m. Dictated by: Vitor Barbosa MD 11/22/2019 12:44 Vitor Barbosa MD in [facility] 11/22/2019 12:44
--- NOTE | 2019-11-22 12:37 | HMH.ACPN2 ---
Internal Medicine - PN: Subj *Date: 11/22/19 *Time: 12:37 Exam Vital signs and Labs for Last 24 Hours: Temp Pulse Resp BP Pulse Ox 101.1 F H 98 H 35 H 117/64 93 L 11/22/19 08:52 11/22/19 09:00 11/22/19 09:00 11/22/19 09:00 11/22/19 09:00 Laboratory Results - last 24 hr 11/20/19 10:53: MRSA (PCR) Negative 11/21/19 16:36: POC Glucose 118 H 11/21/19 21:27: POC Glucose 100 11/22/19 05:54: POC Glucose 107 11/22/19 07:20: WBC 17.0 H, RBC 4.03 L, Hgb 11.4 L, Hct 37.1 L, MCV 92.1, MCH 28.3, MCHC 30.7 L, RDW 15.1, Plt Count 307, MPV 7.4, Neut % (Auto) 87.0 H, Lymph % (Auto) 8.4 L, [place] % (Auto) 3.5, Eos % (Auto) 0.6, Baso % (Auto) 0.4, Neut # (Auto) 14.8 H, Lymph # (Auto) 1.4, [place] # (Auto) 0.6, Eos # (Auto) 0.1, Baso # (Auto) 0.1, Total Counted 100, Neutrophils % (Manual) 88 H, Lymphocytes % (Manual) 8 L, Monocytes % (Manual) 4, Platelet Estimate Normal, RBC Morphology Normal 11/22/19 07:20: Sodium 141, Potassium 4.0, Chloride 107, Carbon Dioxide 28, Anion Gap 10.0, BUN 24 H, Creatinine 1.20, Estimated Creat Clear 80, Estimated GFR 59, Est GFR ( Amer) 71, Glucose 119 H, Calcium 8.3 L 11/22/19 10:49: Specimen Source R radial, O2 % 100, ABG pH 7.32 L, ABG pCO2 46.8 H, ABG pO2 108.9 H, ABG HCO3 23.4, ABG Total CO2 24.8, ABG O2 Saturation 97, ABG Base Excess -2.7 L, Vitor Test Acceptable, Vent Rate 22, Tidal Volume 480, PEEP 12 I & O for Last 24 hours: Intake & Output 10/05/20 10/06/20 10/07/20 10/08/20 23:59 23:59 23:59 23:59 Intake Total 1240 / 1240 960 / 960 120 / 120 Output Total 3385 / 3385 2720 / 2720 551 / 551 1375 / 1375 Balance -2145 / -2145 -1760 / -1760 -431 / -431 -1375 / -1375 Weight 109.372 kg 111.158 kg 110.8 kg 108.579 kg Microbiology Reports for the Last 24 Hours: Microbiology 11/20/19 11:00 Sputum - Expectorated Sputum Gram Stain - Final 11/20/19 11:00 Sputum - Expectorated Sputum Sputum Culture - Preliminary Assessment and Plan (1) Bradycardia Status: Acute Category: Medical Code(s): R00.1 - Bradycardia, unspecified (2) Acute hypoxemic respiratory failure due to COVID-19 Status: Acute Category: Medical Code(s): U07.1 - COVID-19; J96.01 - Acute respiratory failure with hypoxia (3) Pneumonia due to COVID-19 virus Status: Acute Category: Medical Code(s): U07.1 - COVID-19; J12.89 - Other viral pneumonia (4) Obesity (BMI 30.0-34.9) Status: Acute Category: Medical Code(s): E66.9 - Obesity, unspecified (5) Type 2 diabetes mellitus Status: Acute Qualifiers: Diabetes mellitus [facility] insulin use: without [facility] use Diabetes mellitus complication status: with hyperglycemia Qualified Code(s): E11.65 - Type 2 diabetes mellitus with hyperglycemia Category: Medical Code(s): E11.9 - Type 2 diabetes mellitus without complications (6) Warfarin anticoagulation Status: Acute Category: Medical Code(s): Z79.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 transplanted heart: [place] heart Associated angina: without angina Qualified Code(s): I25.810 - Atherosclerosis of coronary artery bypass graft(s) without angina pectoris Category: Medical Code(s): I25.10 - Atherosclerotic heart disease of [place] coronary artery without angina pectoris (9) HLD (hyperlipidemia) Status: Chronic Qualifiers: Hyperlipidemia type: mixed hyperlipidemia Qualified Code(s): E78.2 - Mixed hyperlipidemia Category: Medical Code(s): E78.5 - Hyperlipidemia, unspecified (10) HTN (hypertension) Status: Chronic Qualifiers: Hypertension
--- NOTE | 2019-11-22 13:35 | PC.NURSE ---
Pts blood pressure was noted to be low during chest tube placement. Order was obtained from Dr. Perea for pt to be on Levophed. Titrate to keep systolic bp greater than 100. orders given to pharmacy and drip started by Dolly Ferreira RN
--- NOTE | 2019-11-22 13:38 | PC.NURSE ---
verbal order received from Dr. Perera at this time for pt to have a stat chest xray
--- NOTE | 2019-11-22 13:39 | XR_ITS ---
PROCEDURE: XR CHEST PORTABLE CLINICAL HISTORY: Chest tube placement COMPARISON: CR XR CHEST PORTABLE from 11/22/2019 CR XR CHEST PORTABLE from 11/22/2019 CR XR CHEST PORTABLE from 11/22/2019 FINDINGS: 1344 hours Right chest tube is been inserted. There has been interval decrease in size of the right-sided pneumothorax. A small pneumothorax persists in the right apex and laterally. Endotracheal tube is present. The tip is 4 cm above the lady. There is diffuse bilateral pneumonia. Left subclavian central venous line and nasogastric tube remain in place. The NG tube tip is not visible on the images. IMPRESSION: Interval chest tube insertion with decrease in size of right-sided pneumothorax with other tubes and lines present with diffuse bilateral pneumonia Dictated by: Vitro Barbosa MD 11/22/2019 15:57 Vitor Barbosa MD in [facility] 11/22/2019 15:57
--- NOTE | 2019-11-22 13:53 | HMH.OPNOTE ---
Date of procedure: 11/22/19 Pre-op Diagnosis:: Right pneumothorax Post-op Diagnosis:: Same Procedure performed:: Placement of 28 [place] thoracostomy tube (right chest) Surgeon:: Bryce Perera MD Anesthesia: local Estimated blood loss (mL): 1 Operative findings:: Chest tube secured at 17 cm Operative note:: After informed consent was obtained the patient was maintained in a supine position. The right chest was prepped and draped in a sterile fashion. After infiltration local anesthetic an incision was made along the anterior axillary line below the 6/seventh interspace. The subcutaneous tissue was bluntly dissected over the rib margin. A 28 [place] chest tube was then placed in position with some escape of air. The chest tube was secured with 0 Nurolon at 17 cm. The chest tube was secured to the Pleur-evac which was placed on continuous suction. Dressings were applied. Chest x-ray is pending Condition: critical Disposition: no change Specimens:: None Complications:: No immediate
--- NOTE | 2019-11-22 13:57 | HMH.DCSUM ---
General - General Admission date:: 11/09/19 Discharge date: 11/22/19 HPI HPI: Mr. Bledsoe is a 78yo M with Hx of Afib, HTN, warfarin therapy, CAD, COPD, and T2DM who was diagnosed with COVID-19 on 11/02/19 after his was admitted to [facility] and diagnosed with new onset hypoxemic respiratory failure. He was brought in to the ER by ambulance for shortness of breath and worsening fatigue/diarrhea over the past few days. He reported that he started getting short of breath over the past couple of days, felt dizzy and weak, and had decreased PO intake and increased loose stools. He denies having had any fever. In the ER he was frankly hypoxic and needed ~6L NC O2 for Sats in the low 90s. On interview he reports a small amount of sputum with his cough. He was admitted to medicine for further management of his acute hypoxemic respiratory failure and COVID-19 pneumonia. On assessment in Isolation unit he was found to have stable O2 sats in low 90s on HiFlow NC O2 at 50% and 30L. Appears fatigued and ill, but upbeat. Of note, he has been on outpatient medications for COVID. Started on broad spectrum CAP abx remdesivir, steroids, vitamins, and lovenox. Hospital Course Hospital Course: 78-year-old gentleman with multiple comorbidities admitted for worsening respiratory failure with known diagnosis of COVID-19. Patient was started on room does appear, dexamethasone, vitamin C, D, zinc on admission due to new onset oxygen requirement. His condition progressed necessitating intubation. Showed gradual improvement over 5 days leading to extubation to BiPAP. Was weaned to high flow nasal cannula but unfortunately developed parents of respiratory failure and new right lower lobe infiltrate. Reintubated on 11/21. Developed spontaneous pneumothorax shortly after intubation. Decision was made to transfer to higher level of care as patient's complexity and worsening needs could benefit from modalities such as paralysis and pronating along with access to cardiothoracic surgery given pneumothorax. Hospital course as follows: Respiratory #Acute hypoxic respiratory failure requiring mechanical ventilation: #Severe Acute Respiratory Distress Syndrome (ARDS) #COVID-19 pneumonia: 78-year-old male previous smoker with COPD, no prior respiratory complaints presented to the hospital with worsening hypoxic respiratory failure and tested positive for COVID-19 nasal PCR on 11/08/19. Resp Viral PCR negative. Patient was started on Remdesivir, dexamethasone along with community-acquired pneumonia treatment, on high flow nasal cannula patient remained stable for 3 days however patient respiratory status declined with worsening hypoxia and delirium requiring intubation and mechanical ventilatory support. Sputum cultures obtained with finding from 11/08 positive for MSSA. Completed 7-day course of ceftriaxone with azithromycin and patient was eventually extubated on 11/18/2019 to BiPAP and then weaned to high flow nasal cannula however patient was found to have worsening right lower lobe infiltrates along with worsening respiratory status at which patient antibiotics were escalated to vancomycin and cefepime to cover possible hospital-acquired pneumonia. Respiratory status continued to decline necessitating reintubation on 11/22/2019. Suction performed after intubation suspicious for thick material consistent with food or tissue. Decision was made to perform bronchoscopy, with no significant findings during procedure. Settings on ventilator were adjusted after bronchoscopy to a rate of 20, PEEP of 14, volume 480, FiO2 100%. Patient subsequently developed worsening tachycardia, repeat chest x-ray obtained showing developed of pneumothorax on the right. Surgery consulted urgently for placement of right-sided chest tube. Decision was made due to patient's worsening complexity to facilitate transfer to higher level of care given recurrent need for intubation, development of pneumothor
--- NOTE | 2019-11-22 13:59 | HMH.PULMPN ---
Internal Medicine - PN: Subj *Date: 11/22/19 *Time: 14:00 Interval history: Patient respiratory status worsened overnight and patient was intubated for mechanical ventilatory support this morning. Patient also had a bronchoscopy performed post intubation for presumed aspiration as trach aspirate after the bronchoscopy yielded food particles. Exam Vital signs and Labs for Last 24 Hours: Temp Pulse Resp BP Pulse Ox 101.1 F H 138 H 35 H 117/64 93 L 11/22/19 08:52 11/22/19 13:55 11/22/19 09:00 11/22/19 09:00 11/22/19 10:25 Laboratory Results - last 24 hr 11/20/19 10:53: MRSA (PCR) Negative 11/21/19 16:36: POC Glucose 118 H 11/21/19 21:27: POC Glucose 100 11/22/19 05:54: POC Glucose 107 11/22/19 07:20: WBC 17.0 H, RBC 4.03 L, Hgb 11.4 L, Hct 37.1 L, MCV 92.1, MCH 28.3, MCHC 30.7 L, RDW 15.1, Plt Count 307, MPV 7.4, Neut % (Auto) 87.0 H, Lymph % (Auto) 8.4 L, [place] % (Auto) 3.5, Eos % (Auto) 0.6, Baso % (Auto) 0.4, Neut # (Auto) 14.8 H, Lymph # (Auto) 1.4, [place] # (Auto) 0.6, Eos # (Auto) 0.1, Baso # (Auto) 0.1, Total Counted 100, Neutrophils % (Manual) 88 H, Lymphocytes % (Manual) 8 L, Monocytes % (Manual) 4, Platelet Estimate Normal, RBC Morphology Normal 11/22/19 07:20: Sodium 141, Potassium 4.0, Chloride 107, Carbon Dioxide 28, Anion Gap 10.0, BUN 24 H, Creatinine 1.20, Estimated Creat Clear 80, Estimated GFR 59, Est GFR ( Amer) 71, Glucose 119 H, Calcium 8.3 L 11/22/19 10:49: Specimen Source R radial, O2 % 100, ABG pH 7.32 L, ABG pCO2 46.8 H, ABG pO2 108.9 H, ABG HCO3 23.4, ABG Total CO2 24.8, ABG O2 Saturation 97, ABG Base Excess -2.7 L, Vitor Test Acceptable, Vent Rate 22, Tidal Volume 480, PEEP 12 I & O for Last 24 hours: Intake & Output 11/19/19 11/20/19 11/21/19 11/22/19 23:59 23:59 23:59 23:59 Intake Total 1240 / 1240 960 / 960 120 / 120 Output Total 3385 / 3385 2720 / 2720 551 / 551 1375 / 1375 Balance -2145 / -2145 -1760 / -1760 -431 / -431 -1375 / -1375 Weight 241 lb 2 oz 245 lb 1 oz 244 lb 4.355 oz 239 lb 6 oz Microbiology Reports for the Last 24 Hours: Microbiology 11/22/19 12:00 Bronchial Lavage - Final Not Reportable 11/22/19 12:00 Bronchial Lavage - Final Not Reportable 11/20/19 11:00 Sputum - Expectorated Sputum Gram Stain - Final 11/20/19 11:00 Sputum - Expectorated Sputum Sputum Culture - Preliminary Radiology Reports for the Last 24 Hours: Chest x-ray this morning showed bilateral pneumonia worsening on the left side. Patient was eventually intubated , however post intubation chest x-ray showed right-sided pneumothorax for which Dr. Perera placed a surgical chest tube - *Routine HEENT Exam Head: Present: normocephalic, atraumatic - *Routine Neck Exam Present: supple. Absent: lymphadenopathy - *Routine Respiratory Exam Present: patient mechanically ventilated, rhonchi - *Routine Cardiovascular Exam Present: Normal S1, Normal S2 - *Routine Abdominal Exam Present: soft, normoactive bowel sounds. Absent: tenderness, distended - *Routine Extremities Exam Absent: cyanosis, clubbing, edema Assessment and Plan (1) Bradycardia Status: Acute Category: Medical Code(s): R00.1 - Bradycardia, unspecified (2) Acute hypoxemic respiratory failure due to COVID-19 Status: Acute Category: Medical Code(s): U07.1 - COVID-19; J96.01 - Acute respiratory failure with hypoxia (3) Pneumonia due to COVID-19 virus Status: Acute Category: Medical Code(s): U07.1 - COVID-19; J12.89 - Other viral pneumonia (4) Obesity (BMI 30.0-34.9) Status: Acute Category: Medical Code(s): E66.9 - Obesity, unspecified (5) Type 2 diabetes mellitus Status: Acute Qualifiers: Qualified Code(s): E11.65 - Type 2 diabetes mellitus with hyperglycemia Category: Medical Code(s): E11.9 - Type 2 diabetes mellitus without complications (6) Warfarin anticoagulation Status: Acute Category: Medical Code(
--- NOTE | 2019-11-22 14:07 | DIET.NUTRFU ---
Pt has been re-intubated and consult has been received to initiate TF. Pt was never able to reach TF goal on Jevity 1.2 formula due to high gastric residuals. Will start pt on Pulmocare formula and monitor to see how pt tolerates formula change. Recommend beginning pt on Pulmocare at 20mL/hr continuous with a goal rate of 50mL/hr. Recommend pt receive additional 50mL free H2O flushes q 4. Will monitor and increase fluids as needed. Pulmocare at goal rate of 50mL/hr continous will provide pt 1800 kcal, 75g pro, 126 g CHO, and 942mL free H2O.
--- NOTE | 2019-11-22 14:33 | PC.NURSE ---
0945 - Dr. Torres wishes to intubate pt. Anesthesia informed of need for intubation. 0978 - Arnoldo Susannah here for intubation. Pt placed in supine position w/ bag-mask ventilation performed per RT (Yu) present. Propofol pushed by Leonor Davalos. Pt was intubated @ 1015 w/ #7.5 ETT 26 cm @ lip, breath sounds auscultated bilaterally. Propofol gtt started @ 50 mcg/kg/min. NG inserted by this nurse @ 60 cm. RT @ bedside to collect ET sputum specimen and ABG. RT notified for need to CXR for ETT & NG placement confirmation. Vent settings per Dr. Torres as follows: Assist Control FIO2 100%, TV 480, PEEP 12, Resp 22. Manual BP (R) arm 105/60 Manual BP (L) arm 100/60 Rectal Temp 100.1 Per CXR ETT in good placement, NG tube may be advanced 5 cm to 65 cm. CXR ordered again for confirmation of placement. Consent obtained via telephone from daughter for bronchoscopy @ bedside. Time out performed @ 1132 for bronchoscopy performed by Dr. Torres w/ Crista,RT and nurse at bedside. Pt did have increased agitation @ 1 mg of Dilaudid given per Dr. Torres @ 1137. Pt noted to become tachycardic and sat decreasing to 88%. 1240 - Received call from Dr. Barbosa @ this time that pt has a med size pneumo on (R) side, NG in good placement. 1241 - Dr. Torres and Dr. Perea notified of pneumo. 1246 - Dr. Perera paged @ this time for consult/ chest tube placement. D 1255 - Dr. Perera to floor @ this time. 1259 - Consent obtained for chest tube insertion from daughter via telephone. 1310 - Time out performed to chest tube insertion w/ Dr. Perera @ bedside w/ Dolly Ferreira RN and VANESSA Maradiaga. 28Fr chest tube inserted aseptically. During insertion pt's BP decreased (see VS). Levo gtt started @ 4 mcg/min @ [address] Perea. Noted improvement of BP, too titrate to maintain a systolic of >100. Chest tube to 20 ml suction at bedside. CXR ordered per protocol. Family updated on pt's current status @ 1430. 1440 - Dr. Perea notified of pt continuing to be tachycardic and need for change in VTE prophylaxis. VTE to be changed to lovenox and Metoprolol 5 mg IV x1 now. [facility] called @ 1540, no bed @ this time, but should be available tonight. Pt currently resting in bed w/ eyes closed. Propofol gtt @ 20 mcg/kg/min Levo @ 8 mcg/min.
--- NOTE | 2019-11-22 16:30 | [facility].BRONCH ---
- Procedure: Date: 11/22/19 Patient Date of :: 1940 Procedure Performed:: Bronchoscopy with bronchoalveolar lavage Indications:: Non-resolving pneumonia Performing Provider:: Christy Torres MD Referring Provider:: Dr. Plaza Sedation:: 1 mg of Dilaudid. Patient already receiving propofol as a part of mechanical ventilation sedation protocol Procedure:: Bronchoscopy with bronchoalveolar lavage Findings:: Clean diagnostic bronchoscopy was advanced to 7.5 size ET tube. Bronchoscopy was advanced and airways were examined up to subsegmental bronchi. Airways appeared clean and normal. No evidence of mucous secretions, no evidence of aspirated food, no evidence of blood noted. Bronchoalveolar lavage was performed in the right middle lobe medial segment with instillation of 60 cc normal saline with return of 25 cc. BAL fluid was sent for cell count differential along with bacterial fungal and AFB stain and cultures. We will continue current antibiotic therapy, mechanical ventilatory support and follow with the results. Recommendations:: Continue plan of care as formulated in today's progress note. Follow with the results Complications:: None Estimated blood obtained (mL): 0
[2019-11-22 16:46] LABS: POC Glucose,Bedside 109 (70-110)
[2019-11-22 16:46] LABS: POC Glucose,Bedside 134 (70-110)
--- NOTE | 2019-11-22 18:29 | PC.NURSE ---
1817 -[facility] / called stating pt has a bed ([facility] [address] Room 233). Number to call report [phone]. Accepting physician is Sarah Tsang 1819 - Pt's daughter made aware of bed assignment. Called [facility] for disc.
--- NOTE | 2019-11-22 19:03 | PC.NURSE ---
Attempted to call report @ 3027. Nurse unavailable at this time. Left call back number.
--- NOTE | 2019-11-22 19:22 | PC.NURSE ---
Addendum entered by Fawn Ferreira RN 11/22/19 20:59: Pt taken by stretcher accompanied by [facility] and this nurse on vent w/ levo and diprivan infusing. VSS upon transfer. Pt left floor @ 2044. Addendum entered by Fawn Ferreira RN 11/22/19 19:53: [facility] 10 minutes out @ this time. Addendum entered by Fawn Ferreira RN 11/22/19 19:32: ETA 22 minutes for [facility] Addendum entered by Fawn Ferreira RN 11/22/19 19:27: 5 - Made [facility] aware of need for transport. Awaiting call back. Original Note: Report called to [facility] @ [facility] @ this time.
--- NOTE | 2019-11-22 21:06 | PC.NURSE ---
Family made aware that pt has left facility and on way to . Pt's daughter request that his license and insurance cards be left in ICU. Pt's cards left w/ S Call,RN. Notified [facility] of this.
== END 2019-11-22 20:45 | disposition short-term general hospital (02) | DRG 207 ==
LOC: ER 14:26 → ICU 15:08
PROVIDERS: Internal Medicine Adolescent Medicine; Internal Medicine Pulmonary Disease; Nurse Practitioner Family; Admitting Provider Internal Medicine Adolescent Medicine; Emergency Provider Emergency Medicine; PCP Internal Medicine Adolescent Medicine; Visit Provider Internal Medicine Adolescent Medicine
PROC: 0B9D7ZX Drainage of Right Middle Lung Lobe, Via Natural or Artificial Opening, Diagnostic (ICD-10-PCS; principal; 2019-11-22 11:20)
DX: U07.1 COVID-19 (principal); J96.01 Acute respiratory failure with hypoxia; J12.89 Other viral pneumonia; I48.11 Longstanding persistent atrial fibrillation; J93.83 Other pneumothorax; I25.810 Atherosclerosis of coronary artery bypass graft(s) without angina pectoris; I10 Essential (primary) hypertension; E11.65 Type 2 diabetes mellitus with hyperglycemia; Z79.01 Long term (current) use of anticoagulants; Z95.1 Presence of aortocoronary bypass graft; Z79.4 Long term (current) use of insulin; I25.10 Atherosclerotic heart disease of native coronary artery without angina pectoris
CPT/HCPCS: 32551; 31500 ×2; 94002 ×2; 31624; 36415; 71045; 80048; 80053; 81001; 82272; 82803; 82962; 83605; 83735; 84439; 84443; 84484; 85007; 85025; 85610; 86140; 87040; 87070; 87077; 87081; 87102; 87116; 87186; 87205; 87206; 87486; 87507; 87581; 87633; 87641; 87798; 89051; 92610; 93005; 94003; 94640; 94660; 94761; 96365; 96375; 97162; 97165; 97530; 97535; 99152; 99285; C1751; G0328; J0456; J1642; J2704; J3370; U0003